=== PATIENT | female | born 1985 | race Caucasian/White ===

== ENCOUNTER 2025-05-18 15:38 | Emergency (ER) | payer OTHER, SELFPAY ==
--- OUTSIDE RECORDS SUMMARY | 2019-02-23 19:00 | XMS_ITS | Continuity of Care Document ---
Author Organization [facility] Address [address] [place] [address] Phone Care Team Providers Care Radio Repair Teacher Name Role Phone Woody ZAIDI, Krishan Unavailable Unavailable Procedures Procedure Date [id number] MED Advance Directives Directive Yes / No Effective Date File Name No Information Encounters Encounter Description Practice Location Reason(s) For Visit Diagnoses Date Provider Providers Copied on Encounter CONSULT-OFFICE -COMP MED [facility], [address], [place], [place], [id number], [place] tel:[phone] [facility] No Information Woody Nickerson. [address], [address], [place], [address], [place]. tel:[phone] Referring Provider: Farshad Stout [id number], [place], [address]. tel:[phone] Family History Family Member Type Diagnosis Age At Onset No Information Payers Payer name Insurance type Covered constitution party ID Authoriza timarlon(s) [facility] [id number] Social History Type Description Quantity Date Captured Comments Sex Female Smoking Status No Information Chief Complaint And Reason For Visit No Information Reason For Referral Reason For Referral No Information History Of Present Illness Encounter Date Complaint History Of Prese nt Illness No Information Functional Status Date Functional Assessmen t No Information Instructions Date Instruction Additional Infor mation No Information Assessments Type Assessment Date No Information Patient Care Teams Name Effective Dates (start - stop) Status Members No Information
--- OUTSIDE RECORDS SUMMARY | 2019-02-23 19:00 | XMS_ITS | Continuity of Care Document ---
Author Organization [facility] Address [address] [place] [address] Phone Care Team Providers Care Medical Staff Services Manager Name Role Phone Woody ZAIDI, Krishan Unavailable Unavailable Procedures Procedure Date [id number] MED Advance Directives Directive Yes / No Effective Date File Name No Information Encounters Encounter Description Practice Location Reason(s) For Visit Diagnoses Date Provider Providers Copied on Encounter CONSULT-OFFICE -COMP MED [facility], [address], [place], [place], [id number], [place] tel:[phone] [facility] No Information Woody Nickerson. [address], [address], [place], [address], [place]. tel:[phone] Referring Provider: Farshad Stout [id number], [place], [address]. tel:[phone] Family History Family Member Type Diagnosis Age At Onset No Information Payers Payer name Insurance type Covered libertarian ID Authoriza timarlon(s) [facility] [id number] Social History Type Description Quantity Date Captured [...]
[2025-05-18 15:49] VITALS: BP 119/78; PULSE 83; RESP 16; TEMP 36.9; O2SAT 98
--- OUTSIDE RECORDS SUMMARY | 2025-05-18 16:47 | XMS_ITS | Clinical Summary ---
Author Organization [facility] [employer] Address [address] [place] [address] Care Team Providers Care Earth Sciences Professor Name Role Phone Katia Grubbs PA-C Primary Care Provider [phone] Iraida Carrillo APRN-ELECTRIC FAN ASSEMBLER Unavailable [phone] Source Comments [facility] [employer],non-owned Affiliates and Associated Physician Practices is amultiple site organization consisting of ambulatory clinics and hospital sitesin [place], [place], [place] and [place]. This disclosure is being madepursuant to the Care Everywhere program and may not contain all information available regarding this patient. Last updated 18.[facility] [employer] Allergies Active Allergy Reactions Criticality Noted Date Comments Hydrocodone Psychiatric Medium 11/01/2019 Ibuprofen Rash,Swelling High 01/23/2013 Per RN Tigist Rodriguez @ 1235 03/31/22 pt tolerated test dose ketorolac well. No issues reported. Tramadol Nausea and/or Vomiting Medium 03/27/2014 Medications * This document contains information received from the source organization and may not represent a complete record from that organization. * Be aware that medications may not be up to date on this document. Alwaysverify current medications with the patient. acetaminophen (Tylenol) 500 MG tablet Take 2 (two) tablets by mouth every 4 hours as needed for Fever or Pain Maximum allowable Acetaminophen amount = 4 Grams (4000 mg) / 24 hours. Active Spacer/Aero-H olding Chambers RIK Use 1 device once daily 1 device 3 08/13/20 24 Active glecaprevir-p ibrentasvir (Mavyret) 100-40 MG tablet Take 3 (three) tablets by mouth daily with food 84 tablet 1 09/19/19 25 Active Additional Information Patient not taking.Reported on 05/06/2025 traZODone (Desyrel) 100 MG tablet Take 1 (one) tablet by mouth at bedtime 30 tablet 3 01/22/20 25 Active lurasidone (Latuda) 60 MG tablet Take 1 (one) tablet by mouth daily with food 30 tablet 3 01/22/20 25 Active zonisamide (Zonegran) 100 MG capsule Take 1 (one) capsule by mouth once daily for 30 days 30 capsule 02/26/20 25 Active Additional Information Patient not taking.Reported on 05/06/2025 zonisamide (Zonegran) 100 MG capsule Take 2 (two) capsules by mouth at bedtime for 30 days 60 capsule 02/25/20 25 Active Additional Information Patient not taking.Reported on 05/06/2025 prazosin (Minipress) 1 MG capsule Take 1 (one) capsule by mouth at bedtime 02/27/20 25 Active hydrOXYzine HCl (Atarax) 25 MG tablet Take 1 (one) tablet by mouth 4 times daily as needed anxiety 02/27/20 25 Active folic acid (Folvite) 1 MG tablet Take 1 (one) tablet by mouth once daily 30 tablet 2 04/10/20 25 Active vitamin D, ergocalcifero l, (Drisdol) 1.25 MG (57457 UT) capsule Take 1 (one) capsule by mouth every 7 days (once a week) 4 capsule 2 04/10/20 25 Active methocarbamol (Robaxin) 500 MG tablet Take 1 (one) tablet by mouth every 6 hours as needed for Muscle Spasms 30 tablet 04/15/20 25 Active albuterol HFA (Proventil; Ventolin; Proair) 108 (90 Base) MCG/ACT inhaler inhale TWO puffs BY MOUTH EVERY 6 HOURS NEEDED 8.5 g 1 04/17/20 25 Active budesonide-fo rmoterol (Symbicort) 160-4.5 MCG/ACT inhaler INHALE 2 PUFFS BY MOUTH TWICE DAILY 10.2 g 3 04/22/20 25 Active nicotine (Nicoderm CQ) 21 MG/24HR patchIndicati ons:Nicotine abuse Apply 1 (one) patch to skin once daily 30 patch 04/22/20 25 Active gabapentin (Neurontin) 400 MG capsule Take 1 (one) capsule by mouth at bedtime 30 capsule 1 05/06/20 25 Active albuterol (Proventil;Ve ntolin) (2.5 MG/3ML) 0.083% nebulizer solution USE ONE vial in NEBULIZER EVERY 4 HOURS NEEDED FOR SHORTNESS OF BREATH 75 mL 3 05/07/20 25 Active budesonide-fo rmoterol (Symbicort) 160-4.5 MCG/ACT inhaler Inhale 2 (two) puffs by mouth 2 times daily 3 g 4 01/22/20 25 2024 Discontinued albuterol (Proventil;Ve ntolin) (2.5 MG/3ML) 0.083% nebulizer solution USE ONE vial in NEBULIZER EVERY 4 HOURS NEEDED FOR SHORTNESS OF BREATH 75 mL 3 04/02/20 25 2024 Discontinued gabapentin (Neurontin) 300 MG capsule Take 1 (one) capsule by mouth at bedtime 30 capsule 1 04/15/20 25 2024 Discontinued(D ose Adjustment) gabapentin (Neurontin) 100 MG capsule Take 1 (one) capsule by mouth every morning 60 capsule 1 04/15/20 25 2024 Discontinued(L ist Clean-Up) Active Problems Problem Noted Date Diagnosed Date Weakness 03/17/2025 TIA (transient ischemic attack) 02/18/2025 Spell of change in speech 02/18/2025 Acute cystitis with hematuria 02/18/2025 Family history of colon cancer 09/19/2024 Anemia, normocytic normochromic 09/19/2024 Chest wall pain 08/22/2024 Respiratory distress 08/22/2024 SOB (shortness of breath) 08/22/2024 Prolonged Q-T interval on ECG 08/22/2024 Hypoxia 08/22/2024 Anxiety states 08/22/2024 Pneumonia of left lung due t o infectious organism, unspecified part of lung 08/22/2024 Bipolar 2 disorder 08/13/2024 Laceration of left forearm 05/15/2024 Abdominal pain, right lower quadrant 05/02/2024 Acute right-sided low back pain with right-sided sciatica 05/02/2024 Flank pain 05/02/2024 Sciatica of right side 05/02/2024 History of hepatitis C 07/26/2023 Vaping nicotine dependence, tobacco product 05/07 Liver cyst 03/16/2023 Hemangioma of liver 03/16/2023 Nonspecific elevation of lev els of transaminase or lactic acid dehydrogenase (LDH) 03/16/2023 Reactive airway disease 10/17/2022 Fatty liver 09/05/2022 Chronic hepatitis C without hepatic coma 023 E-cigarette or vaping produc t use associated lung injury (EVALI) 04/03/2022 Hypokalemia 03/23/2022 Tachycardia 03/23/2022 Pulmonary alveolar hemorrhage 11/08/2021 Family dysfunction 09/30/2020 Cannabis abuse 09/30/2020 Mixed obsessional thoughts and acts 09/30/2020 Common bile duct stricture 09/03/2019 Gastrointestinal hemorrhage 02/23/2019 PVC (premature ventricular contraction) 05/02/20 18 Obsessive-compulsive disorder 04/10/2017 Tobacco use disorder 12/12/2014 Severe episode of recurrent major depressive disorder, without psychotic features Enmeshed family style Resolved Problems Problem Noted Date Diagnosed Date Resolved Date SOB (shortness of breath) 06/02/2023 Abdominal pain, RUQ (right upper quadrant) 03/16/2023 06/29/2023 Epigastric pain 03/16/2023 06/29/2023 Interstitial lung disease 10/17/2022 Abdominal pain, generalized 09/05/2022 06/29/2023 Acute hepatitis C virus infe ction without hepatic coma 06/01/2022 07/26/2023 Cough 03/23/2022 05/01/2022 Leukocytosis 03/23/2022 07/26/2023 Hypoxia 03/23/2022 07/26/2023 COPD with acute exacerbation 03/23/2022 06/29/2023 Shortness of breath 03/21/2022 06/29/20 Acute respiratory failure with hypoxia 11/08/2021 06/29/2023 Pneumonia of both lower lobe s due to infectious organism 11/05/2021 06/29/2023 Pre-op testing 02/25/2021 06/29/2023 Bipolar affective disorder, currently depressed, moderate 07/13/2020 07/13/2020 Abdominal pain, right lower quadrant 10/17/2019 06/29/2023 Gastroenteritis 10/17/2019 10/31/2019 Abdominal pain 09/02/2019 06/29/2023 Liver lesion 06/27/2019 07/26/2023 Choledocholithiasis 06/27/2019 09/03/20 19 Palpitation 05/02/2018 07/26/2023 Schizophrenia 04/10/2017 01/21/2025 PTSD (post-traumatic stress disorder) 09/25/2015 07/13/2020 COPD (chronic obstructive pulmonary disease) 5 11/09/2023 Atypical chest pain 05/13/2014 12/13/19 15 Anxiety 05/13/2014 07/13/2020 Panic attack 05/13/2014 07/13/2020 Encounters * This document contains information received from the source organization and may not represent a complete record from that organization. Date Type Department Care Team Description 05/07/[address] [phone] Katia Grubbs PA-C Refill Request 05/06/2025 10:30 AM CDT Video Visit [address] [phone] Katia Grubbs PA-C Frequent falls ; Weakness; Radicular pain 04/22/2025 Orders Only [address] [phone] Katia Grubbs PA-C Nicotine abuse 04/22/[address] [phone] Katia Grubbs PA-C Refill Request 04/17/[address] [phone] Katia Grubbs PA-C Refill Request 04/15/2025 10:45 AM CDT Office Visit [facility] [address] [phone] Katia Grubbs PA-C Weakness (Primary Dx); Radicular pain; Frequent falls; Spondylosis of lumbosacral region without myelopathy or radiculopathy 04/10/2025 3:15 PM CDT - 04/10/2025 11:59 PM CDT Hospital Encounter [facility] - MRI [address] [place] [address] Katia Grubbs PA-C Discharge Disposition: Home or Self Care 04/10/[address] [phone] Katia Grubbs PA-C Medication Issue 04/08/[address] [phone] Katia Grubbs PA-C MEDICATION REFILL 04/03/[address] [phone] Katia Grubbs PA-C Refill Request 04/02/[address] [phone] Katia Grubbs PA-C Refill Request 04/01/2025 11:30 AM CDT Office Visit [address] [phone] Katia Grubbs PA-C Weakness (Primary Dx); Radicular pain; Neurologic abnormality 03/27/2025 1:45 PM CDT Office Visit Outpatient Physical Therapy at [address] [phone] Katia Grubbs PA-C Weakness (Primary Dx) 03/27/[address] [phone] Katia Grubbs PA-C General 03/20/[address] [phone] Katia Grubbs PA-C Pain Leg 03/17/2025 2:30 PM CDT Office Visit Outpatient Physical Therapy at [address] [phone] Katia Grubbs PA-C Weakness (Primary Dx) 03/17/[address] [phone] Katia Grubbs PA-C General 03/11/[address] [phone] Katia Grubbs PA-C General 03/03/2025 11:30 AM CDT Home Care Visit [facility] [address] [place] [phone] Celena Galo RN SN OASIS DISCHARGE 03/03/2025 Home Care Visit [facility] [address] [place] [phone] Antoinette Davidson, EDVIN CASE COMMUNICATION 03/03/2025 Travel 03/03/2025 Home Care Visit [facility] [address] [place] [phone] Britta Daugherty RN TELEPHONE ENCOUNTER 03/03/2025 Results Follow-Up [address] [phone] Katia Grubbs PA-C 02/28/2025 1:55 PM CDT - 02/28/2025 11:59 PM CDT Hospital Encounter [facility] - Laboratory [address] [place] [phone] Katia Grubbs PA-C Discharge Disposition: Home or Self Care 02/28/2025 1:15 PM CDT Office Visit [address] [phone] Katia Grubbs PA-C Pyelonephritis (Primary Dx); Hospital discharge follow-up; Acute cystitis with hematuria; Weakness; Bulging lumbar disc; Bipolar 2 disorder (HCC); Chronic hepatitis C without hepatic coma (HCC) 02/28/2025 Results Follow-Up [address] [phone] Katia Grubbs PA-C 02/28/[address] [phone] Katia Grubbs PA-C Med Question 02/28/2025 Home Care Visit [facility] [address] [place] [phone] Britta Daugherty, RN CASE COMMUNICATION 02/27/2025 Patient Outreach [facility] Care Coordination [address] [place] [phone] Camilo Dennis, REAMING PRESS OPERATOR BANNER Follow-up 02/26/2025 10:00 AM CDT Home Care Visit [facility] [address] [place] [phone] Ashlyn Hoffmann REAMING PRESS OPERATOR REAMING PRESS OPERATOR HOME VISIT 02/26/[address] [phone] Katia Grubbs PA-C Refill Request 02/26/2025 Transitional Care [facility] Coordination [address] [place] [phone] Tigist Santamaria, respiratory care faculty 02/25/2025 1:00 PM CDT Home Care Visit [facility] [address] [place] [phone] Marge Sutton RN SN OASIS START OF CARE 02/25/2025 Plan of Care Documentation [facility] at [facility] Home [facility] [address] [place] [phone] 02/25/2025 Travel 02/25/2025 Transitional Care [facility] - Care Coordination [address] [facility] [place] [phone] Tigist Santamaria, respiratory care faculty 02/24/2025 Telephone [facility] - Family Medicine [address] [place] [phone] Katia Grubbs PA-C General 02/18/2025 6:07 PM CDT - 02/24/2025 2:08 PM CDT Hospital Encounter [facility] 2 TELEMETRY [address] [place], [place] [address] Sweta Garcia MD Flick, John A, DO Seipp, James, DO Hospitalist Discharge Disposition: Home Health Care [facility] 02/18/2025 Travel from Last 3 Months Immunizations Immunization Administration Dates Next Due TDAP (7yrs+) 05/15/2024 Family History Medical History Relation Name Comments Cancer Father Cancer Mother Relation Name Status Comments Father Mother Social History Tobacco Use Types Packs/Day Years Used Date Smoking Tobacco: Former Cigarettes 0.3 15.4 0 03/23/2007 - 03/23/2022 Smokeless Tobacco: Never Tobacco Cessation:Counseling Given: Not Answered Alcohol Use Standard Drinks/Week Comments No 0 (1 standard drink = 0.6 oz pur e alcohol) OASIS D0700: Social Isolation Answer Da te Recorded Frequency of experiencing loneliness or isolatio n Never 03/03/2025 OASIS A1250: Transportation Answer Date Recorded Lack of Transportation (Medical) No 03/03/2025 Lack of Transportation (Non-Medical) No 03/03/2025 Patient Unable or Declines to Respond No 03/03/2025 OASIS B1300: Health Literacy Answer Jagjit e Recorded Frequency of needing help to read materials from doctor or pharmacy Never 03/03/2025 AUDIT-C Answer Date Recorded Q1: How often do you have a drink containing alcohol? Never 02/19/2025 Q2: How many drinks containi ng alcohol do you have on a typical day when you are drinking? Patient does not drink Q3: How often do you have si x or more drinks on one occasion? Never 02/19/2025 Overall Financial Resource Strain (CARDIA) Answe r Date Recorded How hard is it for you to pa y for the very basics like food, housing, medical care, and heating? Not very hard 02/19/2025 PHQ-2 Answer Date Recorded Patient Health Questionnaire-2 Score 4 05/06/2025 [facility] - Occupational Stress Questionnaire Answer Date Recorded Do you feel stress - tense, restless, nervous, or anxious, or unable to sleep at night because your mind is troubled all the time - these days? To some extent 02/19/2025 Hunger Vital Sign Answer Date Recorded Within the past 12 months, y ou worried that your food would run out before you got the money to buy more. Never true 02/20/20 25 Within the past 12 months, t he food you bought just didn't last and you didn't have money to get more. Never true 02/19/2025 PRAPARE - Transportation Answer Date Re corded In the past 12 months, has l ack of transportation kept you from medical appointments or from getting medications? Yes 02/02 In the past 12 months, has l ack of transportation kept you from meetings, work, or from getting things needed for daily living? Yes 02/19/2025 Housing Stability Vital Sign Answer Jagjit e Recorded In the last 12 months, was t here a time when you were not able to pay the mortgage or rent on time? No 02/19/2025 In the past 12 months, how m any times have you moved where you were living? 2 02/19/2025 At any time in the past 12 m [facility], were you homeless or living in a retirement (including now)? 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 Weight 64.4 kg (142 lb) 04/15/2025 10:1 6 AM CDT Height 154.9 cm (5' 1) 04/15/2025 10:1 6 AM CDT Body Mass Index 26.83 04/15/2025 10:16 AM CDT Plan of Treatment Upcoming Encounters Date Type Department Care Team (Late st Contact Info) Description 05/26/2025 1:00 PM CDT Office Visit [facility] Health Orthopedics [address] [place] [address] Katia Grubbs PA-C [address] [place] [phone] Mary Kate Alcaraz, INTERMEDIATE ACCOUNTANT-ELECTRIC FAN ASSEMBLER [address], [place] [phone] Health Maintenance Due Date Last Done Comments MAMMOGRAM 1983 HEPATITIS B VACCINE (1 of 3 - 19+ 3-dose series) 2002 PNEUMOCOCCAL VACCINE (1 of 2 - PCV) 2002 HPV VACCINE (1 - 3-dose SCDM series) 2010 PAP with HPV 2013 COVID-19 VACCINE ( - season) 2025 INFLUENZA VACCINE (#1) 2025 SCREENING FOR DIABETES 02/29/2028 , 02/24/2025, 02/23/2025, Additional history exists LIPID TESTING 02/20/2030 02/20/2025, 11/0 04/2023, 09/13/2021, Additional history exists ZOSTER VACCINE (1 of 2) 2033 DTAP/TDAP/TD VACCINES (2 - Td or Tdap) 05/15/2034 05/15/2024 HIV SCREENING Completed 03/25/2022, 0304/2022, 05/27/2019 HEPATITIS C SCREENING Completed 02/28/2025 , 02/28/2025, 01/21/2025, Additional history exists HIB VACCINE Aged Out No longer eligi ble based on patient's age to complete this topic MENINGOCOCCAL (Group B) VACCINE SHARED DECISION-MAKING Aged Out No longer eligible based on patient's age to complete this topic MENINGOCOCCAL GROUPS A/C/Y/W VACCINE Aged Out No longer eligible based on patient's age to complete this topic Goals Goal Patient Goal Type Associated Problems Recent Progress Patient-Stated? Author Medication Management General On track( 019 11:56 AM CDT) Monico Douglas, RN Note: Expected end date: Interventions: Take all medications as prescribed Let your doctor know right away about any changes in your medications Make sure to request a refill of your medication at least one week prior to your last dose Medical Devices Explanted Type Area Soft Metals Hand Engraver Device Identifier Shelf Expiration Date Model / Serial / Lot Stent Biliary 10fr 7cm Ddnl Bnd Temp Rap Implanted:Qty: 1 on 09/02/2019 by Oswaldo Santamaria MD at [facility] Explanted:Qty: 1 on 11/04/2019 by Oswaldo Santamaria MD at [facility] N/A: Bile Duct [employer] 06/02/2021 [id number] / / [id number] Stent Biliary 10mm 8.5fr 60mm 194cm .035 Implanted:Qty: 1 on 11/04/2019 by Oswaldo Santaamria MD at [facility] Explanted:Qty: 1 on 02/12/2020 by Oswaldo Santamaria MD at [facility] [employer] 06/13/2028 [id number] / / [id number] Stent Biliary 10mm 8.5fr 60mm 194cm .035 Implanted:Qty: 1 on 02/12/2020 by Oswaldo Santamaria MD at [facility] Explanted:Qty: 1 on 08/17/2020 by Oswaldo Santamaria MD at [facility] [employer] 09/26/2021 [id number] / / [id number] Stent Biliary 10mm 8.5fr 60mm 194cm .035 Implanted:Qty: 1 on 08/17/2020 by Oswaldo Santamaria MD at [facility] Explanted:Qty: 1 on 02/25/2021 by Malik Viveros MD at [facility] [employer] [id number] / / Procedures Procedure Name Priority Date/Time Associated Diagnosis Comments MRI LUMBAR SPINE WO CONTRAST Routine 04/10/2025 3:59 PM CDT Weakness Bulging lumbar disc TSH REFLEX FREE T4 Routine 02/28/2025 1: 55 PM CDT Weakness VITAMIN B12 FOLATE PANEL Routine 02/28/2025 1:55 PM CDT Weakness IRON + TRANSFERRIN PANEL Routine 02/28/2025 1:55 PM CDT Weakness VITAMIN D 25-HYDROXY Routine 02/28/2025 1:55 PM CDT Weakness HEPATITIS C RNA QUANT REFLX GENOTYPE Routine 02/28/2025 1:55 PM CDT Chronic hepatitis C without hepatic coma (HCC) COMPREHENSIVE METABOLIC PANEL Routine 02/28/2025 1:55 PM CDT Pyelonephritis CBC W AUTO DIFFERENTIAL Routine 02/28/2025 1:55 PM CDT Pyelonephritis URINALYSIS REFLEX MICROSCOPIC REFLEX CULTURE Routine 02/28/2025 1:55 PM CDT Pyelonephritis CULTURE URINE Routine 02/28/2025 1:55 PM CDT Pyelonephritis CARDIAC RHYTHM STRIP ORDER 02/25/2025 2:36 PM CDT MAGNESIUM BLOOD Routine 02/24/2025 4:28 AM CDT COMPREHENSIVE METABOLIC PANEL AM Draw 02/24/2025 4:28 AM CDT CBC W AUTO DIFFERENTIAL AM Draw 02/24/2025 4:28 AM CDT DIFFERENTIAL MANUAL AM Draw 02/23/2025 4 :10 AM CDT MAGNESIUM BLOOD Routine 02/23/2025 4:10 AM CDT COMPREHENSIVE METABOLIC PANEL AM Draw 02/23/2025 4:10 AM CDT CBC W AUTO DIFFERENTIAL AM Draw 02/23/2025 4:10 AM CDT DIFFERENTIAL MANUAL AM Draw 02/22/2025 4 :20 AM CDT MAGNESIUM BLOOD Routine 02/22/2025 4:20 AM CDT COMPREHENSIVE METABOLIC PANEL AM Draw 02/22/2025 4:20 AM CDT CBC W AUTO DIFFERENTIAL AM Draw 02/22/2025 4:20 AM CDT VAS CAROTID DUPLEX BILATERAL Routine 02/21/2025 2:16 PM CDT Spell of change in speech CT ABDOMEN PELVIS WO CONTRAST STAT 02/21/2025 9:57 AM CDT Pyelonephritis MAGNESIUM BLOOD Routine 02/21/2025 4:50 AM CDT COMPREHENSIVE METABOLIC PANEL AM Draw 02/21/2025 4:50 AM CDT CBC W AUTO DIFFERENTIAL AM Draw 02/21/2025 4:50 AM CDT ECHO COMPLETE W BUBBLE STUDY Routine 02/20/2025 3:35 PM CDT Spell of change in speech EEG Routine 02/20/2025 12:00 PM CDT LIPID PROFILE AM Draw 02/20/2025 4:46 AM CDT HEMOGLOBIN A1C Routine 02/20/2025 4:46 AM CDT [id number] BLOOD AM Draw 02/20/2025 4:46 AM CDT MAGNESIUM BLOOD Routine 02/20/2025 4:46 AM CDT COMPREHENSIVE METABOLIC PANEL AM Draw 02/20/2025 4:46 AM CDT CBC W AUTO DIFFERENTIAL AM Draw 02/20/2025 4:46 AM CDT MRI BRAIN WO CONTRAST STAT 02/19/2025 6:21 PM CDT Spell of change in speech CARDIAC EKG ORDER 02/19/2025 2:5 5 PM CDT LACTIC ACID BLOOD REFLEX TO REPEAT STAT 02/18/2025 8:28 PM CDT DRUG ABUSE URINE SCREEN 10 STAT 02/18/2025 8:00 PM CDT PTT Critical 02/18/2025 7:54 PM CDT PT-INR Critical 02/18/2025 7:54 PM CDT HCG URINE QUALITATIVE STAT 02/18/2025 7:53 PM CDT URINALYSIS REFLEX MICROSCOPIC REFLEX CULTURE STAT 02/18/2025 7:53 PM CDT CULTURE URINE STAT 02/18/2025 7:[address] BRAIN STROKE STAT 02/18/2025 7:47 PM CDT Spell of change in speech CT LUMBAR SPINE WO CONTRAST STAT 02/18/2025 7:47 [address] CDT Spine pain CT THORACIC SPINE WO CONTRAST STAT 02/18/2025 7:47 PM CDT Spine pain CT CERVICAL SPINE WO CONTRAST STAT 02/18/2025 7:47 PM CDT Spine pain XR CHEST 1VW PORTABLE STAT 02/18/2025 7:45 PM CDT Tachycardia CK BLOOD STAT 02/18/2025 7:45 PM CDT SARS-COV-2 (COVID-19) RAPID STAT 02/18/2025 7:45 PM CDT EKG 12-LEAD STAT 02/18/2025 7:35 PM CDT Tachycardia ED CRITICAL CARE Routine 02/18/2025 7:23 PM CDT Spell of change in speech TIA (transient ischemic attack) CULTURE BLOOD Timed 02/18/2025 7:21 PM CDT CULTURE BLOOD Timed 02/18/2025 7:20 PM CDT PROCALCITONIN LEVEL Add on 02/18/2025 6 :46 PM CDT COMPREHENSIVE METABOLIC PANEL STAT 02/18/2025 6:46 PM CDT CBC W AUTO DIFFERENTIAL STAT 02/18/2025 6:27 PM CDT HIV-1 HIV-2 ANTIBODY + HIV P24 AG PANEL AM Draw 03/25/2022 4:32 AM CDT from Last 3 Months or Most Recently Relevant to Health Maintenance Results * MRI Lumbar Spine Wo Contrast (04/10/2025 3:59 PM CDT) Anatomical Region Laterality Modality Spine Magnetic Resonan ce 04/10/2025 4:11 PM CDT Impressions 04/10/2025 4:14 PM CDT IMPRESSION: Mild degenerative change T12-L1, L5-S1 disc space. Mild facet hypertrophy inferiorly. No focal lumbar disc protrusion, nerve root or foraminal encroachment. No spinal stenosis or thecal sac compression. No acute abnormality identified. > Interpreting Provider: Scott Redding MD on 04/10/2025 4:14 PM Narrative 04/10/2025 4:14 PM CDT PROCEDURE: MRI LUMBAR SPINE WO CONTRAST DATE/TIME OF EXAM: 04/10/2025 3:59 PM CLINICAL INFORMATION: None relevant/not provided if blank. Indication: R53.1: Weakness M51.369: Bulging lumbar disc Additional History: Back pain, lumbar myelopathy. COMPARISON: Lumbar spine CT February 2025. TECHNIQUE: Lumbar spine MRI was performed without contrast. FINDINGS: Sagittal images demonstrate degenerative change with mild reduction in height and reduced hydration at L5-S1. There also is degenerative change T12-L1. No lumbar disc protrusion, spinal stenosis or thecal sac compression identified in sagittal projection. Examination of the bony structures reveals no acute fracture or acute bone marrow edema. There are areas of fatty infiltration of the bone marrow anteriorly at T12-L1, posteriorly at L3 presumed physiologic. No suspicious bone marrow replacement process. There is no mass lesion or fluid collection. No abnormal signal intensity identified within the conus or visualized lower thoracic spinal cord. Axial images are obtained from T12-L1 through the level of L5-S1. Disks are normal in axial projection. Foramina are patent and symmetric. No thecal sac compression. Mild facet hypertrophy L4-5 and L5-S1. Procedure Note Scott Redding MD - 04/10/2025 PROCEDURE: MRI LUMBAR SPINE WO CONTRAST DATE/TIME OF EXAM: 04/10/2025 3:59 PM CLINICAL INFORMATION: None relevant/not provided if blank. Indication: R53.1: Weakness M51.369: Bulging lumbar disc Additional History: Back pain, lumbar myelopathy. COMPARISON: Lumbar spine CT February 2025. TECHNIQUE: Lumbar spine MRI was performed without contrast. FINDINGS: Sagittal images demonstrate degenerative change with mild reduction in height and reduced hydration at L5-S1. There also is degenerative change T12-L1. No lumbar disc protrusion, spinal stenosis or thecal sac compression identified in sagittal projection. Examination of the bony structures reveals no acute fracture or acutebone marrow edema. There are areas of fatty infiltration of the bone marrow anteriorly at T12-L1, posteriorly at L3 presumed physiologic. Nosuspicious bone marrow replacement process. There is no mass lesion or fluid collection. No abnormal signalintensity identified within the conus or visualized lower thoracic spinal cord. Axial images are obtained from T12-L1 through the level of L5-S1. Disksare normal in axial projection. Foramina are patent and symmetric. No thecal sac compression. Mild facet hypertrophy L4-5 and L5-S1. IMPRESSION: Mild degenerative change T12-L1, L5-S1 disc space. Mild facet hypertrophy inferiorly. No focal lumbar disc protrusion, nerve root or foraminal encroachment. No spinal stenosis or thecal sac compression. No acute abnormality identified. > Interpreting Provider: Scott Redding MD on 04/10/2025 4:14 PM Katia PEREZ-Shannon MR ORDERABLES Final Result * HEPATITIS C RNA QUANT REFLX GENOTYPE (02/28/2025 1:55 PM CDT) HCV Quant by NAAT (IU/mL) Not Detected IU/mL 03/03/2025 4:19 PM CDT [facility] ([facility]) HCV Quant by NAAT (log IU/mL) Not Detected log IU/mL 03/03/2025 4:19 PM CDT [facility] ([facility]) Comment: Hepatitis C Virus (HCV) by Quantitative NAAT result was less than 4,000 IU/mL (3.6 log IU/mL); therefore no further testing added. HCV Quant by NAAT Interp Not Detected Not Detected 03/03/2025 4:19 PM CDT [facility] ([facility]) Comment: INTERPRETIVE INFORMATION: HCV by Quantitative NAAT The quantitative range of this test is 15-100,000,000 IU/mL (1.18-8.0 log IU/mL). A result of Not Detected does not rule out the presence of inhibitors in the patient specimen or hepatitis C virus RNA concentrations below the level of detection of the test. Care should be taken when interpreting any single viral load determination. This test is intended for use as an aid in the diagnosis of HCV infection in the following populations: individuals with antibody evidence of HCV with evidence of liver disease, individuals suspected to be actively infected with HCV antibody evidence, and individuals at risk for HCV infection with antibodies to HCV. Detection of HCV RNA indicates that the virus is replicating and therefore is evidence of active infection. This test is also intended for use as an aid in the management of patients with an HCV infection undergoing antiviral therapy. The assay can be used to measure HCV RNA levels at baseline, during treatment, at the end of treatment, and at the end of follow-up of treatment to determine sustained or nonsustained viral response. The results must be interpreted within the context of all relevant clinical and laboratory findings. This test should not be used for blood donor screening, associated reentry protocols, or for screening human cells, tissues, and cellular tissue-based products (HCT/P). Performed By: [facility] [address] [place] [address] Mill Hand: Keyshawn Robles MD, PhD CLIA Number: [id number] Blood BLOOD SPECIMEN / Unknown Venipuncture / Unknown 02/28/2025 1:55 PM CDT 02/28/2025 1:55 PM CDT us Katia Grubbs PA-C LAB - CHEMISTRY ORDERABLES Fin al Result [facility] ([facility]) [address] [place] [address] * (ABNORMAL) URINALYSIS REFLEX MICROSCOPIC REFLEX CULTURE (02/28/2025 1:55 PM CDT) Only the most recent of2 resultswithin the time period is included. Color UA Yellow Yellow, Straw 02/28/2025 5:02 PM CDT [facility] Clarity UA Turbid(A) Clear 02/28/2025 5:02 PM CDT [facility] Glucose UA Negative Negative 02/28/2025 5:02 PM CDT [facility] Bilirubin UA Negative Negative 02/28/2025 5:02 PM CDT [facility] Ketone UA Negative Negative 02/28/2025 5:02 PM CDT [facility] Specific [place] UA 1.016 1.005 - 1.030 02/28/2025 5:02 PM CDT [facility] Blood UA 2+(A) Negative 02/28/2025 5:02 PM CDT [facility] pH UA 5.5 5.0 - 8.0 02/28/2025 5:02 PM CDT [facility] Protein UA Trace(A) Negative 02/28/2025 5:02 PM CDT [facility] Urobilinogen UA Normal Normal mg/dL 025 5:02 PM CDT [facility] Nitrite UA Negative Negative 02/28/2025 5:02 PM CDT [facility] Leukocyte Esterase UA 1+(A) Negative 02/28/2025 5:02 PM CDT [facility] RBC UA 3-5 0 - 5 # /hpf 02/28/2025 5:02 PM CDT [facility] WBC UA 0-5 0 - 5 # /hpf 02/28/2025 5:02 PM T [facility] Bacteria UA None Seen None Seen 02/28/2025 5:02 PM T [facility] Squamous Epithelial Cells 6-10(A) 0 - 5 /hpf 02/28/2025 5:02 PM T [facility] Mucus UA 4+ /LPF 02/28/2025 5:02 PM T [facility] Urine URINE SPECIMEN OBTAINED BY CLEAN CATCH PROCEDURE / Unknown Collection / Unknown 02/28/2025 1:55 PM CDT 02/28/2025 1:55 PM CDT Katia Grubbs PA-C LAB - URINALYSIS ORDERABLES Fi nal Result Performing Organization Address [facility] de Phone Number [facility] [address] [place] [address] * TSH REFLEX FREE T4 (02/28/2025 1:55 PM CDT) TSH 2.6695 0.35 - 4.94 uIU/mL 02/28/2025 5:32 PM CDT [facility] Comment:TSH Normal, Reflex F ree T4 Not Performed. Blood BLOOD SPECIMEN / Unknown Venipuncture / Unknown 02/28/2025 1:55 PM CDT 02/28/2025 1:55 PM CDT Katia Grubbs PA-C LAB - CHEMISTRY ORDERABLES Fin al Result Performing Organization Address City/[facility]/ZIP Co de Phone Number [facility] [address] * (ABNORMAL) VITAMIN D 25-HYDROXY (02/28/2025 1:55 PM CDT) Vitamin D, 25 Hydroxy 13.9(L) 30 - 80 ng/mL 02/28/2025 5:25 PM CDT [facility] Blood BLOOD SPECIMEN / Unknown Venipuncture / Unknown 02/28/2025 1:55 PM CDT 02/28/2025 1:55 PM CDT Narrative [facility] - 02/28/2025 5:25 PM CDT Reference Values: The recommendation for 25-Hydroxy Vitamin D clinical decision points are as follows: Deficient < 20.0 ng/mL Insufficient 20.0-29.9 ng/mL Sufficient 30.0-100.0 ng/mL Potential Toxicity >100 ng/mL Reference: The Endocrine Society Clinical Practice Guidelines. 2011 If the 25-Hydroxy Vitamin D results are inconsistent with clinical evidence, it is recommended that follow-up testing using a method such as LC-MS/MS be performed to confirm the result. Katia Grubbs PA-C LAB - CHEMISTRY ORDERABLES Fin al Result Performing Organization Address City/[facility]/ZIP Co de Phone Number [facility] [address] * CULTURE URINE (02/28/2025 1:55 PM CDT) Only the most recent of2 resultswithin the time period is included. Culture Urine <10,000 CFU/mL urogenital bertha AMARI 03/02/2025 6:16 AM CDT [facility] Urine URINE SPECIMEN OBTAINED BY CLEAN CATCH PROCEDURE / Unknown Collection / Unknown 02/28/2025 1:55 PM CDT 02/28/2025 5:20 PM CDT Katia Grubbs PA-C LAB - MICROBIOLOGY ORDERABLES Final Result [facility] [address] [place] [address], [facility] [phone] * (ABNORMAL) CBC WITH DIFFERENTIAL (02/28/2025 1:55 PM T) Only the most recent of7 resultswithin the time period is included. [facility] Signature WBC 12.4(H) 4.0 - 10.7 x10E9/L 02/28/2025 4:59 PM [facility] RBC Count 4.74 3.90 - 5.20 x10E12/L 02/28/2025 4:59 PM [facility] Hemoglobin 13.7 11.9 - 15.8 g/dL 02/28/2025 4:59 PM [facility] Hematocrit 41.7 34.8 - 46.1 % 02/28/2025 4:59 PM [facility] MCV 88.0 80.0 - 98.0 fL 02/28/2025 4:59 PM [facility] MCH 28.9 26.7 - 33.6 pg 02/28/2025 4:59 PM [facility] MCHC 32.9 31.7 - 36.3 g/dL 02/28/2025 4:59 PM [facility] RDW-CV 15.6(H) 11.3 - 14.8 % 02/28/2025 4:59 PM [facility] Platelet Count 593(H) 150 - 420 x10E9/L 02/28/2025 4:59 PM [facility] MPV 9.7 7.8 - 11.4 fL 02/28/2025 4:59 PM [facility] Neutrophil % 78.3(H) 41.0 - 74.0 % 02/28/2025 4:59 PM [facility] Lymphocyte % 15.2(L) 17.0 - 47.0 % 02/28/2025 4:59 PM [facility] Monocyte % 4.8 3.0 - 11.0 % 02/28/2025 4:59 PM [facility] Eosinophil % 0.7 0.0 - 7.0 % 02/28/2025 4:59 PM [facility] Basophil % 0.4 0.0 - 1.6 % 02/28/2025 4:59 PM [facility] Immature Granulocytes % 0.6 0.0 - 1.0 % 02/28/2025 4:59 PM [facility] Neutrophil Absolute 9.69(H) 1.60 - 7.50 x10E9/L 02/28/2025 4:59 PM CDT [facility] Lymphocyte Absolute 1.88 1.00 - 4.40 x10E9/L 02/28/2025 4:59 PM CDT [facility] Monocyte Absolute 0.59 0.15 - 1.00 x10E9/L 02/28/2025 4:59 PM CDT [facility] Eosinophil Absolute 0.09 0.00 - 0.60 x10E9/L 02/28/2025 4:59 PM CDT [facility] Basophil Absolute 0.05 0.00 - 0.13 x10E9/L 02/28/2025 4:59 PM CDT [facility] Blood BLOOD SPECIMEN / Unknown Venipuncture / Unknown 02/28/2025 1:55 PM CDT 02/28/2025 1:55 PM CDT us Katia Grubbs PA-C LAB - HEMATOLOGY ORDERABLES Fi nal Result Performing Organization Address [facility] Co de Phone Number [facility] [address] * (ABNORMAL) COMPREHENSIVE METABOLIC PANEL (02/28/2025 1:55 PM CDT) Only the most recent of7 resultswithin the time period is included. Glucose 97 70 - 125 mg/dL 02/28/2025 4:55 PM CDT [facility] Sodium 136 136 - 145 mmol/L 02/28/2025 4:55 PM CDT [facility] Potassium 3.4 3.4 - 5.1 mmol/L 02/28/2025 4:55 PM CDT [facility] Chloride 103 98 - 107 mmol/L 02/28/2025 4:55 PM CDT [facility] CO2 25 22 - 29 mmol/L 02/28/2025 4:55 PM CDT [facility] Calcium 9.48 8.4 - 10.2 mg/dL 02/28/2025 4:55 PM CDT [facility] Anion Gap 8 6 - 16 mmol/L 02/28/2025 4:55 PM CDT [facility] BUN 8.9(L) 9.8 - 20.1 mg/dL 02/28/2025 4:55 PM CDT [facility] Creatinine 0.71 0.57 - 1.11 mg/dL 02/28/2025 4:55 PM CDT [facility] Alkaline Phosphatase 119 40 - 150 U/L 02/28/2025 4:55 PM CDT [facility] ALT 19 7 - 30 U/L 02/28/2025 4:55 PM CDT [facility] AST 25 5 - 34 U/L 02/28/2025 4:55 PM CDT [facility] Protein Total 8.5(H) 6.4 - 8.3 gm/dL 02/28/2025 4:55 PM CDT [facility] Albumin 4.1 3.1 - 4.5 gm/dL 02/28/2025 4:55 PM CDT [facility] Globulin Total 4.4(H) 2.6 - 4.0 gm/dL 02/28/2025 4:55 PM CDT [facility] Albumin/Globulin Ratio 0.9 0.9 - 1.6 02/28/2025 4:55 PM CDT [facility] Bilirubin Total 0.3 0.2 - 1.2 mg/dL 02/28/2025 4:55 PM CDT [facility] eGFR >90 >90 mL/min/1.7 3m2 02/28/2025 4:55 PM CDT [facility] Comment:The GFR result was c alculated using the updated CKD-EPI Creatinine Equation (2020). Blood BLOOD SPECIMEN / Unknown Venipuncture / Unknown 02/28/2025 1:55 PM CDT 02/28/2025 1:55 PM CDT us Katia Grubbs PA-C LAB - CHEMISTRY ORDERABLES Fin al Result [facility] [address] * (ABNORMAL) VITAMIN B12 FOLATE PANEL (02/28/2025 1:55 PM CDT) Vitamin B12 594 213 - 816 pg/mL 02/28/2025 5:32 PM CDT [facility] Folate 4.9(L) 7.0 - 31.4 ng/mL 02/28/2025 5:32 PM CDT [facility] Blood BLOOD SPECIMEN / Unknown Venipuncture / Unknown 02/28/2025 1:55 PM CDT 02/28/2025 1:55 PM CDT Katia Grubbs PA-C LAB - CHEMISTRY ORDERABLES Fin al Result Performing Organization Address [facility] de Phone Number [facility] [address] [place] [address] * IRON + TRANSFERRIN PANEL (02/28/2025 1:55 PM CDT) Iron 68 50 - 170 ug/dL 02/28/2025 4:55 PM CDT [facility] Transferrin 352 180 - 382 mg/dL 02/28/2025 4:55 PM CDT [facility] TIBC Calculated 440 261 - 497 ug/dL 02/28/2025 4:55 PM CDT [facility] Iron Saturation % 15 11 - 45 % 02/28/2025 4:55 PM CDT [facility] Blood BLOOD SPECIMEN / Unknown Venipuncture / Unknown 02/28/2025 1:55 PM CDT 02/28/2025 1:55 PM CDT Katia Grubbs PA-C LAB - CHEMISTRY ORDERABLES Fin al Result Performing Organization Address [facility] de Phone Number [facility] [address] [place] [address] * CARDIAC RHYTHM STRIP ORDER (02/25/2025 2:36 PM CDT) Narrative 02/25/2025 2:36 PM CDT Ordered by an unspecified provider. Scanned Document CARDIAC SERVICES ORDERABLES Joseph hayden Result - Final * MAGNESIUM BLOOD (02/24/2025 4:28 AM CDT) Only the most recent of5 resultswithin the time period is included. Magnesium 2.2 1.6 - 2.6 mg/dL 02/24/2025 5:03 AM CDT [facility] Blood BLOOD SPECIMEN / Unknown Lab Venipuncture / Unknown 02/24/2025 4:28 AM CDT 02/24/2025 4:39 AM CDT us Mono Myers DO LAB - CHEMISTRY ORDERABLES Final Result [facility] [address] * (ABNORMAL) DIFFERENTIAL MANUAL (02/23/2025 4:10 AM CDT) Only the most recent of2 resultswithin the time period is included. Neutrophil % 71 41 - 74 % 02/23/2025 5:24 AM CDT [facility] Lymphocyte % 23 17 - 47 % 02/23/2025 5:24 AM CDT [facility] Monocyte % 4 3 - 11 % 02/23/2025 5:24 AM CDT [facility] Eosinophil % 2 0 - 7 % 02/23/2025 5:24 AM CDT [facility] Neutrophil Absolute 9.80(H) 1.60 - 7.50 x10E9/L 02/23/2025 5:24 AM CDT [facility] Lymphocyte Absolute 3.17 1.00 - 4.40 x10E9/L 02/23/2025 5:24 AM CDT [facility] Monocyte Absolute 0.55 0.15 - 1.00 x10E9/L 02/23/2025 5:24 AM CDT [facility] Eosinophil Absolute 0.28 0.00 - 0.60 x10E9/L 02/23/2025 5:24 AM CDT [facility] RBC Morphology REVIEWED 02/23/2025 5:24 AM CDT [facility] Blood BLOOD SPECIMEN / Unknown Lab Venipuncture / Unknown 02/23/2025 4:10 AM CDT 02/23/2025 4:43 AM CDT us Mono Myers DO LAB - HEMATOLOGY ORDERABLES Sadia l Result [facility] [address] * VAS Carotid Duplex Bilateral (02/21/2025 2:16 PM CDT) Anatomical Region Laterality Modality Neck Intravascular Ul trasound 02/21/2025 7:01 PM CDT Narrative Procedure Note Argelia Tenorio MD - 02/21/2025 Text based report below. For full PDF report please click on Cardiac, Vascular Lab Orders Based Right: No significant plaque visualized. No hemodynamic disturbance to theflow. Vertebral artery flow is antegrade. Left: No significant plaque visualized. No hemodynamic disturbance to theflow. Vertebral artery flow is antegrade. Conclusions: Based upon NASCET Doppler criteria there appears to be anormal examination of the extracranial carotid system. Bilateral vertebral artery is antegrade. Procedure: *Reading Radiologist: Argelia Tenorio on 02/21/2025 at 7:01 PM Mono Myers DO VASCULAR LAB ORDERABLES Edited R esult - Final * CT ABDOMEN AND PELVIS WO IV CONTRAST [id number] (02/21/2025 9:57 AM CDT) Anatomical Region Laterality Modality Abdomen, Pelvis Computed Tomogra phy 02/21/2025 10:0 0 AM CDT Impressions 02/21/2025 10:15 AM CDT IMPRESSION: 1. Mild fat stranding around the right kidney without right hydroureteronephrosis. Findings are concerning for right-sided pyelonephritis. If warranted, repeat study with IV contrast including delayed phase imaging recommended. 2. Cholecystectomy. No biliary ductal dilatation. Hepatic cyst in the left lateral segment liver 1.4 cm sized. 3. Normal bowel including appendix. No hernias or lymphadenopathy. > Interpreting Provider: Abhishek Green DO on 02/21/2025 10:15 AM Narrative 02/21/2025 10:15 AM CDT Exam: CT ABDOMEN PELVIS WO CONTRAST Date/Time of Exam: 02/21/2025 9:57 AM INDICATION: N12: Pyelonephritis Comparison: CT A/P 05/02/2024. Technique: CT of the abdomen and pelvis was performed without the administration of intravenous contrast. This CT study used one or more of the following dose reduction techniques: Automated exposure control, Adjustment of the mA and/or kV according to patient size, Use of iterative reconstruction technique. Patient radiation dose is recorded for each exam using dose tracking software. Contrast: None. Findings: Evaluation of solid abdominal viscera, lymph nodes, bowel and vascular structures is degraded without oral or IV contrast. ABDOMEN: The visualized lower thorax demonstrates subsegmental atelectasis in lower lung bases. There are no pleural effusions. Heart is normal sized. The liver is normal-sized with normal attenuation. Cholecystectomy. There is no biliary ductal dilatation. A cyst in the left lateral segment liver 1.4 cm. There is a normal-appearing spleen. No perisplenic fluid collections. There is normal-appearing pancreas, and adrenal glands. There is mild nonspecific perinephric fat stranding in the right side. No pararenal fluid collections. There is no free air, ascites or bowel obstruction present. There is no hiatal hernia. Decompressed stomach. Normal-appearing duodenal loop. There is minimal vascular calcifications in infrarenal aorta without aneurysm. PELVIS: The bladder is mildly distended without focal bladder wall thickening. Small fat-containing right inguinal hernia. There are follicles in the ovaries. Nabothian cyst in the cervix. There is a normal-appearing rectum and sigmoid colon. There is normal descending colon, transverse and right colon. The small bowel loops are nondilated. There is a normal appendix present. BONES: No acute osseous abnormalities or intraosseous lesions. Mild anterior disc bulging and osteophytes at T12-L1. Normal visualized lower thoracic ribs and osseous structures in the pelvis. Procedure Note Abhishek Green, DO - 02/21/2025 Exam: CT ABDOMEN PELVIS WO CONTRAST Date/Time of Exam: 02/21/2025 9:57 AM INDICATION: N12: Pyelonephritis Comparison: CT A/P 05/02/2024. Technique: CT of the abdomen and pelvis was performed without the administration of intravenous contrast. This CT study used one or moreof the following dose reduction techniques: Automated exposure control, Adjustment of the mA and/or kV according to patient size, Use ofiterative reconstruction technique. Patient radiation dose is recorded for eachexam using dose tracking software. Contrast: None. Findings: Evaluation of solid abdominal viscera, lymph nodes, bowel and vascular structures is degraded without oral or IV contrast. ABDOMEN: The visualized lower thorax demonstrates subsegmental atelectasis inlower lung bases. There are no pleural effusions. Heart is normal sized. The liver is normal-sized with normal attenuation. Cholecystectomy.There is no biliary ductal dilatation. A cyst in the left lateral segmentliver 1.4 cm. There is a normal-appearing spleen. No perisplenic fluid collections. There is normal-appearing pancreas, and adrenal glands.There is mild nonspecific perinephric fat stranding in the right side. No pararenal fluid collections. There is no free air, ascites or bowel obstruction present. There is no hiatal hernia. Decompressed stomach. Normal-appearing duodenal loop.There is minimal vascular calcifications in infrarenal aorta without aneurysm. PELVIS: The bladder is mildly distended without focal bladder wall thickening. Small fat-containing right inguinal hernia. There are follicles in the ovaries. Nabothian cyst in the cervix. There is a normal-appearing rectum and sigmoid colon. There is normal descending colon, transverse and right colon. The small bowel loops are nondilated. There is a normal appendix present. BONES: No acute osseous abnormalities or intraosseous lesions. Mild anteriordisc bulging and osteophytes at T12-L1. Normal visualized lower thoracic ribs and osseous structures in the pelvis. IMPRESSION: 1. Mild fat stranding around the right kidney without right hydroureteronephrosis. Findings are concerning for right-sided pyelonephritis. If warranted, repeat study with IV contrast including delayed phase imaging recommended. 2. Cholecystectomy. No biliary ductal dilatation. Hepatic cyst in theleft lateral segment liver 1.4 cm sized. 3. Normal bowel including appendix. No hernias or lymphadenopathy. > Interpreting Provider: Abhishek Green DO on 02/21/2025 10:15 AM Mono Myers DO CT ORDERABLES Final Result * ECHO COMPLETE W BUBBLE STUDY (02/20/2025 3:35 PM CDT) IVSd 2D 0.77 cm SSM CV FUJ I PACS LVIDd 4.881 cm SSM CV FUJ I PACS LVIDs 3.314 cm SSM CV FUJ I PACS LVOT diam 2.07 cm SSM CV FUJ I PACS LVPWd 0.597 cm SSM CV FUJ I PACS LV A4C EF 63.008 % SSM CV FUJ I PACS LV EDV A4C 89.63 ml SSM CV FU JI PACS LV ESV A4C 33.156 ml SSM CV FU JI PACS LVOT pk grad 4.186 mmHg SSM CV FUJI PACS LVOT pk umberto 102.294 cm/s SSM CV F UJI PACS RVIDd 3.568 cm SSM CV FUJ I PACS LA vol BP 44.681 ml SSM CV FUJ I PACS RA area 11.597 cm SSM CV FUJI PACS AV area pk umberto 3.001 cm SSM CV FUJI PACS AV pk grad 5.267 mmHg SSM CV FU JI PACS AV pk umberto 114.751 cm/s SSM CV FUJ I PACS MV A pk umberto 48.2 cm/s SSM CV F UJI PACS MV E pk umberto 72.915 cm/s SSM CV F UJI PACS MV E' lateral umberto 16.962 cm/s SSM CV FUJI PACS TAPSE 2.405 cm SSM CV FUJ I PACS TR pk umberto 234.152 cm/s SSM CV FUJ I PACS Ascending aorta 3.054 cm SSM CV FUJI PACS IVC Diam Expiration 2.278 cm SSM CV FUJI PACS Sinus of Valsalva 3.539 cm SSM CV FUJI PACS LA vol index 0.027 l/m SSM CV FUJI PACS Myocardial strain charge 2 unitless SSM CV FUJI PACS Anatomical Region Laterality Modality Ultrasound 02/20/2025 12:3 1 PM CDT Narrative 02/20/2025 5:14 PM CDT Summary * Left ventricle is normal in size, with normal systolic function, wall motion is normal, and diastolic function is normal. * Left ventricular systolic function is normal with an estimated ejection fraction of 60-65% by visual estimate. * Left ventricular wall thickness is normal. * Right ventricle is normal in size with normal systolic function. * Estimated pulmonary arterial systolic pressure is 37 mmHg. * Tricuspid valve is grossly normal, with no stenosis, and trace regurgitation. * Mitral valve is grossly normal, with no stenosis, and trace to mild regurgitation. * The aortic root at the sinus of Valsalva is mildly dilated measuring 3.5 cm. * Dilated inferior vena cava with < 50% collapse upon inspiration consistent with significantly elevated right atrial pressure, 15 mmHg. * Agitated saline contrast study at rest and with Valsalva is negative for a shunt. Patient Info Name: Rodger Santamaria Age: 40 years : 1985 Gender: Female Ht: 61 in Wt: 151 lb BSA: 1.74 m2 BP: 116 / 77 mmHg Exam Date: 02/20/2025 12:31 PM Patient Status: I/P Study Site: [facility] EStudy Info Technical Quality: Adequate Exam Type: ECHO COMPLETE W BUBBLE STUDY Indications R47.89 - Spell of change in speech Procedure(s) * A complete 2D, color Doppler, spectral Doppler, and M-Mode transthoracic echocardiogram was performed. Staff Referring Physician: Mono Myers Ordering Provider: Mono Myers Attending Physician: Mono Myers Razor Sharpener: Neli Hernandez [facility] Left Ventricle Left ventricle is normal in size, with normal systolic function, wall motion is normal, and diastolic function is normal. Left ventricular systolic function is normal with an estimated ejection fraction of 60-65% by visual estimate. Left ventricular wall thickness is normal. Right Ventricle Right ventricle is normal in size with normal systolic function. Left Atrium The left atrium is normal in size with a left atrial volume index of 27 ml/m2 by BP MOD. Right Atrium Right atrial chamber is normal with a right area of 11.6 cm2. Atrial Septum Agitated saline contrast study at rest and with Valsalva is negative for a shunt. Aortic Valve Aortic valve is trileaflet with no stenosis, and no clinically significant regurgitation. Pulmonic Valve Pulmonic valve is not well visualized, but grossly normal, with no stenosis, and trace regurgitation. Mitral Valve Mitral valve is grossly normal, with no stenosis, and trace to mild regurgitation. Tricuspid Valve Tricuspid valve is grossly normal, with no stenosis, and trace regurgitation. Estimated pulmonary arterial systolic pressure is 37 mmHg. Inferior Vena Cava Dilated inferior vena cava with < 50% collapse upon inspiration consistent with significantly elevated right atrial pressure, 15 mmHg. Pulmonary Veins Normal flow patterns noted in the pulmonary veins. Pericardium/Pleural Pericardium is normal in appearance with no evidence for significant pericardial effusion. Aorta The aortic root at the sinus of Valsalva is mildly dilated measuring 3.5 cm. The ascending aorta is normal in size measuring 3.1 cm with an index of 1.8 cm/m2. Measurements Left Ventricular Outflow Tract Name Value Normal LVOT 2D LVOT Diameter 2.1 cm LVOT Area 3.4 cm2 LVOT Doppler LVOT Peak Velocity 1.0 m/s LVOT Peak Gradient 4 mmHg Mitral Valve Name Value Normal MV Diastolic Function MV E Peak Velocity 0.7 m/sec MV A Peak Velocity 0.5 m/sec MV E/A 1.5 MV Decel Time (PW) 123 ms MV Annular TDI MV Septal e' Velocity 11 cm/s >=8 MV E/e' (Septal) 6 <=8 MV Lateral e' Velocity 17 cm/s >=10 MV E/e' (Lateral) 4 <=8 MV e' Average 14 cm/s MV E/e' (Average) 5 Tricuspid Valve Name Value Normal TV Regurgitation Doppler TR Peak Velocity 2.3 m/s TR Peak Gradient 22 mmHg Estimated PAP/RSVP RA Pressure 15 mmHg <=5 PA Systolic Pressure 37 mmHg <35 RV Systolic Pressure 37 mmHg <36 Aorta Name Value Normal Ascending Aorta Sinus of Valsalva Diameter 3.5 cm 2.4-3.6 Sinus of Valsalva Index 2.0 cm/m2 1.4-2.2 Asc Ao Diameter 3.1 cm 1.9-3.5 Asc Ao Diameter Index 1.8 cm/m2 1.0-2.2 Venous Name Value Normal IVC/SVC IVC Diameter 2.3 cm <=2.1 Aortic Valve Name Value Normal AV Doppler AV Peak Velocity 1.15 m/s AV Peak Gradient 5 mmHg AV Area (Cont Eq Umberto) 3.00 cm2 AV DI (Umberto) 0.89 AV Regurgitation 2D LVOT Area 3.36 cm2 Ventricles Name Value Normal LV Dimensions 2D/MM IVS Diastolic Thickness (2D) 0.8 cm 0.6-0.9 LVID Diastole (2D) 4.9 cm 3.8-5.2 LVPW Diastolic Thickness (2D) 0.6 cm 0.6-0.9 LVID Systole (2D) 3.3 cm 2.2-3.5 LV Mass (2D Cubed) 107 g 67-162 LV Mass Index (2D Cubed) 61 g/m2 43-95 Relative Wall Thickness (2D) 0.24 <=0.42 LV Fractional Shortening/Ejection Fraction 2D/MM LV Fractional Shortening (2D) 32 % 27-45 LV EF (2D Teicholz) 60 % 54-74 LV Diastolic Volume (4C MOD) 90 ml LV EF (4C MOD) 63 % LV Diastolic Length (4C) 8.3 cm LV Systolic Length (4C) 6.7 cm LV Stroke Volume (4C MOD) 56 ml RV Dimensions 2D/MM RVID Diastole (2D) 3.6 cm 2.5-3.5 TAPSE 2.4 cm >=1.7 Atria Name Value Normal LA Dimensions LA Volume (BP MOD) 45 ml LA Volume Index (BP MOD) 27 ml/m2 16-34 RA Dimensions RA Area (4C) 12 cm2 <=18 RA Area (4C) Index 7 cm2/m2 Report Signatures Finalized by Chris Colmenares on 02/20/2025 05:14 PM Procedure Note Chris Colmenares MD - 02/20/2025 Summary * Left ventricle is normal in size, with normal systolic function,wall motion is normal, and diastolic function is normal. * Left ventricular systolic function is normal with an estimatedejection fraction of 60-65% by visual estimate. * Left ventricular wall thickness is normal. * Right ventricle is normal in size with normal systolic function. * Estimated pulmonary arterial systolic pressure is 37 mmHg. * Tricuspid valve is grossly normal, with no stenosis, and trace regurgitation. * Mitral valve is grossly normal, with no stenosis, and trace to mild regurgitation. * The aortic root at the sinus of Valsalva is mildly dilated measuring3.5 cm. * Dilated inferior vena cava with < 50% collapse upon inspirationconsistent with significantly elevated right atrial pressure, 15 mmHg. * Agitated saline contrast study at rest and with Valsalva is negativefor a shunt. Patient Info Name: Rodger Santamaria Age: 40 years : 1985 Gender: Female Ht: 61 in Wt: 151 lb BSA: 1.74 m2 BP: 116 / 77 mmHg Exam Date: 02/20/2025 12:31 PM Patient Status: I/P Study Site: [facility] Primary Location: [facility] EStudy Info Technical Quality: Adequate Exam Type: ECHO COMPLETE W BUBBLE STUDY Indications R47.89 - Spell of change in speech Procedure(s) * A complete 2D, color Doppler, spectral Doppler, and M-Modetransthoracic echocardiogram was performed. Staff Referring Physician: Mono Myers Ordering Provider: Mono Myers Attending Physician: Mono Myers Razor Sharpener: Neli Hernandez [facility] Left Ventricle Left ventricle is normal in size, with normal systolic function, wallmotion is normal, and diastolic function is normal. Left ventricular systolic function is normal with an estimated ejection fraction of 60-65% byvisual estimate. Left ventricular wall thickness is normal. Right Ventricle Right ventricle is normal in size with normal systolic function. Left Atrium The left atrium is normal in size with a left atrial volume index of27 ml/m2 by BP MOD. Right Atrium Right atrial chamber is normal with a right area of 11.6 cm2. Atrial Septum Agitated saline contrast study at rest and with Valsalva is negative fora shunt. Aortic Valve Aortic valve is trileaflet with no stenosis, and no clinicallysignificant regurgitation. Pulmonic Valve Pulmonic valve is not well visualized, but grossly normal, with nostenosis, and trace regurgitation. Mitral Valve Mitral valve is grossly normal, with no stenosis, and trace to mild regurgitation. Tricuspid Valve Tricuspid valve is grossly normal, with no stenosis, and trace regurgitation. Estimated pulmonary arterial systolic pressure is 37mmHg. Inferior Vena Cava Dilated inferior vena cava with < 50% collapse upon inspirationconsistent with significantly elevated right atrial pressure, 15 mmHg. Pulmonary Veins Normal flow patterns noted in the pulmonary veins. Pericardium/Pleural Pericardium is normal in appearance with no evidence for significant pericardial effusion. Aorta The aortic root at the sinus of Valsalva is mildly dilated measuring 3.5cm. The ascending aorta is normal in size measuring 3.1 cm with an index of1.8 cm/m2. Measurements Left Ventricular Outflow Tract Name Value Normal LVOT 2D LVOT Diameter 2.1 cm LVOT Area 3.4 cm2 LVOT Doppler LVOT Peak Velocity 1.0 m/s LVOT Peak Gradient 4 mmHg Mitral Valve Name Value Normal MV Diastolic Function MV E Peak Velocity 0.7 m/sec MV A Peak Velocity 0.5 m/sec MV E/A 1.5 MV Decel Time (PW) 123 ms MV Annular TDI MV Septal e' Velocity 11 cm/s >=8 MV E/e' (Septal) 6 <=8 MV Lateral e' Velocity 17 cm/s >=10 MV E/e' (Lateral) 4 <=8 MV e' Average 14 cm/s MV E/e' (Average) 5 Tricuspid Valve Name Value Normal TV Regurgitation Doppler TR Peak Velocity 2.3 m/s TR Peak Gradient 22 mmHg Estimated PAP/RSVP RA Pressure 15 mmHg <=5 PA Systolic Pressure 37 mmHg <35 RV Systolic Pressure 37 mmHg <36 Aorta Name Value Normal Ascending Aorta Sinus of Valsalva Diameter 3.5 cm 2.4-3.6 Sinus of Valsalva Index 2.0 cm/m2 1.4-2.2 Asc Ao Diameter 3.1 cm 1.9-3.5 Asc Ao Diameter Index 1.8 cm/m2 1.0-2.2 Venous Name Value Normal IVC/SVC IVC Diameter 2.3 cm <=2.1 Aortic Valve Name Value Normal AV Doppler AV Peak Velocity 1.15 m/s AV Peak Gradient 5 mmHg AV Area (Cont Eq Umberto) 3.00 cm2 AV DI (Umberto) 0.89 AV Regurgitation 2D LVOT Area 3.36 cm2 Ventricles Name Value Normal LV Dimensions 2D/MM IVS Diastolic Thickness (2D) 0.8 cm 0.6-0.9 LVID Diastole (2D) 4.9 cm 3.8-5.2 LVPW Diastolic Thickness (2D) 0.6 cm 0.6-0.9 LVID Systole (2D) 3.3 cm 2.2-3.5 LV Mass (2D Cubed) 107 g 67-162 LV Mass Index (2D Cubed) 61 g/m2 43-95 Relative Wall Thickness (2D) 0.24 <=0.42 LV Fractional Shortening/Ejection Fraction 2D/MM LV Fractional Shortening (2D) 32 % 27-45 LV EF (2D Teicholz) 60 % 54-74 LV Diastolic Volume (4C MOD) 90 ml LV EF (4C MOD) 63 % LV Diastolic Length (4C) 8.3 cm LV Systolic Length (4C) 6.7 cm LV Stroke Volume (4C MOD) 56 ml RV Dimensions 2D/MM RVID Diastole (2D) 3.6 cm 2.5-3.5 TAPSE 2.4 cm >=1.7 Atria Name Value Normal LA Dimensions LA Volume (BP MOD) 45 ml LA Volume Index (BP MOD) 27 ml/m2 16-34 RA Dimensions RA Area (4C) 12 cm2 <=18 RA Area (4C) Index 7 cm2/m2 Report Signatures Finalized by Chris Colmenares on 02/20/2025 05:14 PM us Mono Myers DO ECHO CUPID Final Result * EEG (02/20/2025 12:00 PM CDT) 02/20/2025 12:0 0 PM CDT Narrative Procedure Note Amos Coles MD - 02/24/2025 12:[address] [facility] Neurodiagnostics Laboratory EEG Patient: RODGER SANTAMARIA MPatient Type: CSN: [id number] Bday/Age: 06 1985 40 Stn/Rm/Bed: [place] [address] Sex/Race: F 1 Unit #: [id number] Patient Adrs: [id number] Prim Phys: Attend Phys: SWETA [facility]//Zip: [place] [address] GARCIA 01 Admit Date: February 18, 2025 Disch To: Disch Date: DATE OF SERVICE: 02/20/2025 referring physician: Amos Coles M.D. REPORT TITLE: EEG Report BODY AFTER REPORT TITLE: CLINICAL INFORMATION: 40-year-old female came to the emergency room forfever, brain fog, speech issues, hematuria, double vision. Inability toambulate due to muscle spasm of the leg. She fell and began for 4 days. MEDICATIONS: Currently: 1. She is on Tylenol. 2. Albuterol inhaler. 3. She is on Symbicort. 4. Flexeril. 5. Atarax. 6. Latuda. 7. Minipress. 8. Desyrel. The patient has spell in the living room when her speech became slurredand she was dizzy. TECHNICAL REMARKS: This 21-channel recording employing disk electrodeswith collodion according to International 10/20 electrode placement. EEGwas performed on [employer] system. There was some muscle artifact duringthis recording. REPORT: A well-defined posterior basic rhythm was seen during thisrecording. The background rhythm was from 9 to 9.5 hertz per second.This does attenuate with eye opening. There was no anteroposteriorgradient. No sharp or epileptiform discharges were noticed. No electrographic seizures were noticed. HYPERVENTILATION: Hyperventilation was not performed. PHOTIC STIMULATION: Photic stimulation did not produce any driving. The background rhythm was in theta and alpha range throughout therecording. EKG showed normal sinus rhythm. IMPRESSION: This is basically a normal EEG during alert and awake states.A normal EEG does not exclude seizure. Clinical correlation isrequired. Amos Coles M.D. SAS/MODL /[id number] cc: Fouzia Cruz M.D. EEG REPORT us Amos Coles MD NEUROLOGY ORDERABLES Final Resul t [facility] * HEMOGLOBIN A1C (02/20/2025 4:46 AM CDT) [facility] Signature Hemoglobin A1c 4.9 4.2 - 5.6 % 02/20/2025 5:24 AM CDT [facility] Estimated Average Glucose 94 mg/dL 02/20/2025 5:24 AM CDT [facility] Blood BLOOD SPECIMEN / Unknown Lab Venipuncture / Unknown 02/20/2025 4:46 AM CDT 02/20/2025 4:59 AM CDT Narrative [facility] - 02/20/2025 5:24 AM CDT HbA1c Interpretation: Normal: < 5.7% Pre-diabetes: 5.7-6.4% Diabetes: Equal to or greater than 6.5% Test results diagnostic of diabetes should be repeated for confirmation. Treatment target values recommended by ADA and other clinical organizations should be used to evaluate metabolic control in patients. This test should not replace glucose testing for patients with Type 1 diabetes, pediatric patients, or women. Falsely low HbA1c results may be observed in patients with clinical conditions that shorten erythrocyte life span or decrease mean erythrocyte age such as the presence of unstable hemoglobin variants, elevated hemoglobin F level or other causes of hemolytic anemia. HbA1c may not accurately reflect glycemic control when clinical conditions that affect erythrocyte survival are present. Severe Iron deficiency anemia may yield falsely high results. Hemoglobin A1c assay should not be used to diagnose or monitor diabetes in patients with malignancy, recent blood transfusion, chronic kidney or liver disease. This method may yield falsely low results when hemoglobin (HbF) exceeds 5% in the specimen. The [employer] Alinity assay for the measurement of HbA1c is a National Glycohemoglobin Standardization Program (NGSP) certified method. [facility] - CHEMISTRY ORDERABLES Final Result Performing Organization Address [facility]/ZIP Co de Phone Number [facility] [address] * (ABNORMAL) [id number] BLOOD (02/20/2025 4:46 AM CDT) [facility] Fixcx-4-Dcpopwcv sin 302(H) 90 - 200 mg/dL 02/22/2025 4:21 AM CDT [employer] ([facility]) Comment: To convert to umol/L, multiply mg/dL by 0.185 Performed By: [employer] [address] [place] [address] Mill Hand: Keyshawn Robles MD, PhD CLIA Number: [id number] Blood BLOOD SPECIMEN / Unknown Lab Venipuncture / Unknown 02/20/2025 4:46 AM CDT 02/20/2025 4:58 AM CDT [facility] - CHEMISTRY ORDERABLES Final Result Performing Organization Address [facility]/ZIP Co de Phone Number [facility] [address] [place] [address] * (ABNORMAL) LIPID PROFILE (02/20/2025 4:46 AM CDT) [facility] Cholesterol 116 <200 mg/dL 02/20/2025 5:22 AM CDT [facility] Triglycerides 188(H) <150 mg/dL 02/20/2025 5:22 AM T [facility] HDL Cholesterol 11(L) >40 mg/dL 5:22 AM T [facility] Chol HDL Ratio 10.5(H) 1.0 - 6.0 02/20/2025 5:22 AM T [facility] LDL Calculated 67 65 - 130 mg/dL 02/20/2025 5:22 AM T [facility] VLDL Calculated 38(H) <=30 mg/dL 5:22 AM T [facility] Blood BLOOD SPECIMEN / Unknown Lab Venipuncture / Unknown 02/20/2025 4:46 AM CDT 02/20/2025 4:59 AM CDT Narrative [facility] - 02/20/2025 5:22 AM CDT Lipid Profile Comment: CHOLESTEROL LEVEL..................CLINICAL INTERPRETATION LESS THAN 200 MG/DL..............................DESIRABLE 200-239 MG/DL..............................BORDERLINE HIGH GREATER THAN 240 MG/DL................................HIGH LDL-CHOLESTEROL LEVEL..............CLINICAL INTERPRETATION LESS THAN 100 MG/DL................................OPTIMAL 100-129 MG/DL.................................NEAR OPTIMAL GREATER THAN 160 MG/DL...........................HIGH RISK HDL RISK LEVEL GREATER THEN 60 MG/DL............................DECREASED 40-60 MG/DL........................................AVERAGE LESS THAN 40 MG/DL...............................INCREASED TRIGLYCERIDE LEVEL..................CLINICAL INTERPRETATION LESS THAN 150 MG/DL...............................DESIRABLE 150-199 MG/DL...............................BORDERLINE HIGH 200-499 MG/DL..........................................HIGH GREATER THAN 500..................................VERY HIGH THE NATIONAL CHOLESTEROL EDUCATION PROGRAM HAS SET THE ABOVE GUIDELINES (REFERANCE VALUES) FOR CHOLESTEROL AND HDL. RISK ASSOCIATED WITH CHOLESTEROL/HDL RATIOS RISK....................MALE RATIO.............FEMALE RATIO 1/2 AVERAGE.................<3.4.......................<3.3 LOW RISK.................... 4.0 ...................... 3.8 AVERAGE..................... 5.0 ...................... 4.5 2X AVERAGE.................. 9.5 ...................... 7.0 3X AVERAGE...................>23........................>11 Mono Myers DO LAB - CHEMISTRY ORDERABLES Final Result [facility] [address] * MRI Brain Wo Contrast (02/19/2025 6:21 PM CDT) Anatomical Region Laterality Modality Head Magnetic Resonan ce 02/19/2025 7:06 PM CDT Impressions 02/20/2025 10:23 AM CDT IMPRESSION: 1.No hemorrhage, acute ischemic insult, mass displacement, or edema. 2.Minimal for age subcortical white matter changes as a common nonspecific incidental finding. Other etiologies of multifocal white matter changes such as demyelinating insults postinfectious, et cetera, felt highly unlikely from this pattern of presentation. Edited by Tigist Cruz on 02/20/2025 8:29 AM > Interpreting Provider: Alex Kraft MD on 02/20/2025 10:23 AM Narrative 02/20/2025 10:23 AM CDT PROCEDURE: MRI BRAIN WO CONTRAST DATE/TIME OF EXAM: 02/19/2025 6:21 PM CLINICAL INFORMATION: None relevant/not provided if blank. Indication: R47.89: Spell of change in speech. Additional History: COMPARISON: Head CT 02/18/2025. TECHNIQUE: MRI of the brain was performed without contrast. FINDINGS: No intraparenchymal blood degradation products. No restricted diffusion to denote an acute ischemic insult. There is no proteinaceous extra-axial fluid collection. High signal intensity in the high left frontal subcortical white matter most consistent with some minimal perivascular gliosis as a common finding even in this age group. There is no loss of the peripheral cortical ribbon. There is normal flow void present in the large vessels of the skull base at the [place]. The craniocervical junction is normal. No mastoid or middle ear effusion. No maxillary sinus fluid levels. The globes and postseptal soft tissues are normal. Coronal images shows no abnormal medial temporal lobe signal abnormality. Procedure Note Alex Kraft MD - 02/20/2025 PROCEDURE: MRI BRAIN WO CONTRAST DATE/TIME OF EXAM: 02/19/2025 6:21 PM CLINICAL INFORMATION: None relevant/not provided if blank. Indication: R47.89: Spell of change in speech. Additional History: COMPARISON: Head CT 02/18/2025. TECHNIQUE: MRI of the brain was performed without contrast. FINDINGS: No intraparenchymal blood degradation products. No restricted diffusionto denote an acute ischemic insult. There is no proteinaceous extra-axial fluid collection. High signal intensity in the high left frontal subcortical white matter most consistent with some minimal perivascular gliosis as a common finding even in this age group. There is no loss ofthe peripheral cortical ribbon. There is normal flow void present in thelarge vessels of the skull base at the [place]. The craniocervical junction is normal. No mastoid or middle ear effusion. No maxillarysinus fluid levels. The globes and postseptal soft tissues are normal. Coronal images shows no abnormal medial temporal lobe signalabnormality. IMPRESSION: 1.No hemorrhage, acute ischemic insult, mass displacement, or edema. 2.Minimal for age subcortical white matter changes as a commonnonspecific incidental finding. Other etiologies of multifocal white matter changes such as demyelinating insults postinfectious, et cetera, felt highly unlikely from this pattern of presentation. Edited by Tigist Cruz on 02/20/2025 8:29 AM > Interpreting Provider: Alex Kraft MD on 02/20/2025 10:23 AM Mono harish LUU MR ORDERABLES Final Result * CARDIAC EKG ORDER (02/19/2025 2:55 PM CDT) Narrative 02/19/2025 2:55 PM CDT Ordered by an unspecified provider. Scanned Document CARDIAC SERVICES ORDERABLES Fin al Result * LACTIC ACID BLOOD REFLEX TO REPEAT (02/18/2025 8:28 PM CDT) Lactic Acid 0.78 0.5 - 2 mmol/L 02/18/2025 8:47 PM CDT [facility] Blood BLOOD SPECIMEN / Unknown Venipuncture / Unknown 02/18/2025 8:28 PM CDT 02/18/2025 8:28 PM CDT us Sweta Garcia MD LAB - CHEMISTRY ORDERABL ES Final Result Performing Organization Address City/State/[facility] Co de Phone Number [facility] [address] * (ABNORMAL) DRUG ABUSE URINE SCREEN 10 (02/18/2025 8:00 PM CDT) [facility] Amphetamines Screen Urine Negative Negative 02/18/2025 8:29 PM CDT [facility] Barbiturates Screen Urine Negative Negative 02/18/2025 8:29 PM CDT [facility] Benzodiazepines Screen Urine Negative Negative 02/18/2025 8:29 PM CDT [facility] Cannabinoids Screen Urine Positive(A) Negative 02/18/2025 8:29 PM CDT [facility] Cocaine Screen Urine Negative Negative 02/18/2025 8:29 PM CDT [facility] Methadone Screen Urine Negative Negative 02/18/2025 8:29 PM CDT [facility] Opiate Screen Urine Negative Negative 02/18/2025 8:29 PM CDT [facility] Phencyclidine Screen Urine Negative Negative 02/18/2025 8:29 PM CDT [facility] Tricyclics Screen Urine Negative Negative 02/18/2025 8:29 PM CDT [facility] Methamphetamine Screen Urine Negative Negative 02/18/2025 8:29 PM CDT [facility] Buprenorphine Screen Urine Negative Negative 02/18/2025 8:29 PM CDT [facility] Oxycodone Screen Urine Negative Negative 02/18/2025 8:29 PM CDT [facility] Urine URINE / Unknown Collection / Unknown 02/18/2025 8:00 PM CDT 02/18/2025 8:15 PM CDT Narrative [facility] - 02/18/2025 8:29 PM CDT This is a presumptive/unconfirmed test for medical treatment purposes only. Clinical consideration and professional judgment should be applied when using presumptive results. If confirmatory testing, such as gas chromatography-mass spectrometry (GC/MS), of any positive results of this test is required, please notify the laboratory within 7 days of collection. This test is intended only for monitoring or management of patients. It is not intended for use in job-related and/or legal-related purposes. The cutoff value for each analyte is: Barbiturates.....200 ng/mL Benzodiazepines......150 ng/mL Cocaine..........150 ng/mL Opiates..............100 ng/mL Phencyclidine.....25 ng/mL Tricyclics...........300 ng/mL Cannabinoid.......50 ng/mL Amphetamines.........500 ng/mL Methadone........200 ng/mL Methamphetamines.....500 ng/mL Buprenorphine.....10 ng/mL Oxycodone............100 ng/mL Sweta Garcia MD LAB - URINE CHEMISTRY OR DERABLES Final Result Performing Organization Address City/[facility]/ZIP Co de Phone Number [facility] [address] * (ABNORMAL) PTT (02/18/2025 7:54 PM CDT) Pathologist [facility] PTT 43.7(H) 23.0 - 38.4 sec 02/18/2025 8:08 PM CDT [facility] Blood BLOOD SPECIMEN / Unknown Venipuncture / Unknown 02/18/2025 7:54 PM CDT 02/18/2025 7:54 PM CDT Sweta Garcia MD LAB - COAGULATION ORDERA BLES Final Result Performing Organization Address City/[facility]/ZIP Co de Phone Number [facility] [address] * (ABNORMAL) PT-INR (02/18/2025 7:54 PM CDT) [facility] PT 14.6 11.3 - 14.8 sec 02/18/2025 8:08 PM CDT [facility] INR 1.15(L) 2 - 3 02/18/2025 8:08 PM CDT [facility] Blood BLOOD SPECIMEN / Unknown Venipuncture / Unknown 02/18/2025 7:54 PM CDT 02/18/2025 7:54 PM CDT Narrative [facility] - 02/18/2025 8:08 PM CDT Recommended therapeutic INR ranges for Oral Anticoagulant Therapy: 2.0-3.0 For prevention of Thrombosis or Embolism and treatment of Venous Thrombosis. 2.5- 3.5 for prevention of Recurrent Embolism or treatment of patients with Mechanical Prosthetic Heart Valves. Sweta Garcia MD LAB - COAGULATION ORDERA BLES Final Result Performing Organization Address [facility] Co de Phone Number [facility] [address] * HCG URINE QUALITATIVE (02/18/2025 7:53 PM CDT) Pathologist [facility] hCG Qualitative Urine Negative Negative 02/18/2025 7:58 PM CDT [facility] Specific [place] UA 1.011 1.005 - 1.030 02/18/2025 7:58 PM CDT [facility] Urine URINE / Unknown 02/18/2025 7 :53 PM CDT 02/18/2025 7:53 PM CDT Sweta Garcia MD LAB - URINALYSIS ORDERAB LES Final Result Performing Organization Address [facility] Co de Phone Number [facility] [address] * CT BRAIN - Stroke (02/18/2025 7:47 PM CDT) Anatomical Region Laterality Modality Head Computed Tomogra phy 02/18/2025 9:37 PM CDT Impressions 02/18/2025 9:39 PM CDT IMPRESSION: 1. UNREMARKABLE, FOR AGE, UNENHANCED CT EXAMINATION OF THE BRAIN.. 2. A PRELIMINARY REPORT WAS GIVEN BY [facility] AT THE TIME OF THE EXAMINATION'S COMPLETION. > Interpreting Provider: Bradley Carrero MD on 02/18/2025 9:39 PM Narrative 02/18/2025 9:39 PM CDT PROCEDURE: CT BRAIN STROKE, DATE/TIME OF EXAM: 02/18/2025 7:47 PM, LOCATION [facility] INDICATION: R47.89: Spell of change in speech ADDITIONAL CLINICAL INFORMATION: Ordering Provider Reason For Exam: Technologist Note: Additional: COMPARISON: 04/02/2022 CT BRAIN INDICATION: 40 year year old Female with headache, vision changes by seeing double and triple, inability to walk, uncontrolled muscle movements all over fecal incontinence for 3 days, bilateral hip pain radiating to her lower extremities, TECHNIQUE: Unenhanced axial images were made from the skull base to the cranial vertex. One or more of the following CT dose reduction techniques were utilized: - Automated exposure control (AEC) - Adjustment of mA and/or kV, according to the patient's size - use of iterative reconstruction technique - CT scan done according to ALARA or ALARA/IMAGE GENTLY FINDINGS: Comparison is made to the unenhanced CT examination of brain from 04/02/2022.. There is normal lynch/white matter differentiation. I do not see any evidence of hemorrhage, edema, mass or mass-effect. There are no extra-axial fluid collections. The paranasal sinuses included in the study are well aerated. No specific bony abnormalities are seen. Procedure Note Bradley Carrero MD - 02/18/2025 PROCEDURE: CT BRAIN STROKE, DATE/TIME OF EXAM: 02/18/2025 7:47 PM, LOCATION [facility] INDICATION: R47.89: Spell of change in speech ADDITIONAL CLINICAL INFORMATION: Ordering Provider Reason For Exam: Technologist Note: Additional: COMPARISON: 04/02/2022 CT BRAIN INDICATION: 40 year year old Female with headache, vision changes byseeing double and triple, inability to walk, uncontrolled muscle movements all over fecal incontinence for 3 days, bilateral hip pain radiating to her lower extremities, TECHNIQUE: Unenhanced axial images were made from the skull base to the cranial vertex. One or more of the following CT dose reduction techniques were utilized: - Automated exposure control (AEC) - Adjustment of mA and/or kV, according to the patient's size - use of iterative reconstruction technique - CT scan done according to ALARA or ALARA/IMAGE GENTLY FINDINGS: Comparison is made to the unenhanced CT examination of brainfrom 04/02/2022.. There is normal lynch/white matter differentiation. I do not see any evidence of hemorrhage, edema, mass or mass-effect. There are no extra-axial fluid collections. The paranasal sinusesincluded in the study are well aerated. No specific bony abnormalities are seen. IMPRESSION: 1. UNREMARKABLE, FOR AGE, UNENHANCED CT EXAMINATION OF THE BRAIN.. 2. A PRELIMINARY REPORT WAS GIVEN BY [facility] AT THE TIME OF THE EXAMINATION'S COMPLETION. > Interpreting Provider: Bradley Carrero MD on 02/18/2025 9:39 PM us Sweta Garcia MD CT ORDERABLES Final Re sult * CT Lumbar Spine Wo Contrast (02/18/2025 7:47 PM CDT) Anatomical Region Laterality Modality Spine Computed Tomogra phy 02/19/2025 8:16 AM CDT Impressions 02/19/2025 8:28 AM CDT IMPRESSION: 1.Mild scoliosis. 2.No displaced fracture. 3.Other findings as above. Follow-up MRI recommended. Edited by Tigist Cruz on 02/19/2025 8:19 AM > Interpreting Provider: Gregory Vasquez MD on 02/19/2025 8:28 AM Narrative 02/19/2025 8:28 AM CDT PROCEDURE: CT LUMBAR SPINE WO CONTRAST DATE/TIME OF EXAM: 02/18/2025 7:47 PM CLINICAL INFORMATION: None relevant/not provided if blank. Indication: M54.9: Spine pain. Additional History: Lumbar spine pain. COMPARISON: 01/07/2024 TECHNIQUE: CT of the lumbar spine was preformed utilizing standard protocol. Sagittal and coronal reformatted images were rendered. [facility] interpreted the exam and sent a preliminary report. CT dose reduction technique was used, including Automated Exposure Control. FINDINGS: Mild left convex lumbar scoliosis is present. There is no displaced fracture, subluxation or dislocation. Small posterolateral disc bulges are present in the lower lumbar spine which may contribute to bilateral neural foraminal narrowing. MRI would be more sensitive for disc disease. The paravertebral soft tissues are otherwise unremarkable. Procedure Note Gregory Vasquez MD - 02/19/2025 PROCEDURE: CT LUMBAR SPINE WO CONTRAST DATE/TIME OF EXAM: 02/18/2025 7:47 PM CLINICAL INFORMATION: None relevant/not provided if blank. Indication: M54.9: Spine pain. Additional History: Lumbar spine pain. COMPARISON: 01/07/2024 TECHNIQUE: CT of the lumbar spine was preformed utilizing standard protocol.Sagittal and coronal reformatted images were rendered. [facility] interpreted the exam and sent a preliminary report. CT dose reduction technique was used, including Automated ExposureControl. FINDINGS: Mild left convex lumbar scoliosis is present. There is no displaced fracture, subluxation or dislocation. Small posterolateral disc bulgesare present in the lower lumbar spine which may contribute to bilateralneural foraminal narrowing. MRI would be more sensitive for disc disease. The paravertebral soft tissues are otherwise unremarkable. IMPRESSION: 1.Mild scoliosis. 2.No displaced fracture. 3.Other findings as above. Follow-up MRI recommended. Edited by Tigist Cruz on 02/19/2025 8:19 AM > Interpreting Provider: Gregory Vasquez MD on 02/19/2025 8:28 AM us Sweta Garcia MD CT ORDERABLES Final Re sult * CT Thoracic Spine Wo Contrast (02/18/2025 7:47 PM CDT) Anatomical Region Laterality Modality Spine Computed Tomogra phy 02/19/2025 8:18 AM CDT Impressions 02/19/2025 8:28 AM CDT IMPRESSION: 1.Degenerative changes. 2.No fracture. 3.Emphysematous changes and atelectasis. 4.Right thyroid nodule or cyst. Edited by Tigist Cruz on 02/19/2025 8:22 AM > Interpreting Provider: Gregory Vasquez MD on 02/19/2025 8:28 AM Narrative 02/19/2025 8:28 AM CDT PROCEDURE: CT THORACIC SPINE WO CONTRAST DATE/TIME OF EXAM: 02/18/2025 7:47 PM CLINICAL INFORMATION: None relevant/not provided if blank. Indication: Thoracic spine pain. Additional History: COMPARISON: 01/07/2024 TECHNIQUE: CT of the thoracic spine was performed utilizing standard protocol. [facility] interpreted the exam and sent a preliminary report. CT dose reduction technique was used, including Automated Exposure Control. FINDINGS: There is no displaced fracture, subluxation or dislocation. Mild endplate degenerative changes are present. No overt central canal stenosis is present. MRI would be more sensitive for disc disease. Within the right lobe of the thyroid, a low-attenuation nodule measuring 1.96 cm is redemonstrated. This may be further evaluated with ultrasound. Bilateral lower lobe atelectasis is present. Emphysematous changes are present. Procedure Note Gregory Vasquez MD - 02/19/2025 PROCEDURE: CT THORACIC SPINE WO CONTRAST DATE/TIME OF EXAM: 02/18/2025 7:47 PM CLINICAL INFORMATION: None relevant/not provided if blank. Indication: Thoracic spine pain. Additional History: COMPARISON: 01/07/2024 TECHNIQUE: CT of the thoracic spine was performed utilizing standard protocol. [facility] interpreted the exam and sent a preliminary report. CT dose reduction technique was used, including Automated ExposureControl. FINDINGS: There is no displaced fracture, subluxation or dislocation. Mildendplate degenerative changes are present. No overt central canal stenosis is present. MRI would be more sensitive for disc disease. Within the right lobe of the thyroid, a low-attenuation nodule measuring 1.96 cm is redemonstrated. This may be further evaluated with ultrasound. Bilateral lower lobe atelectasis is present. Emphysematous changes are present. IMPRESSION: 1.Degenerative changes. 2.No fracture. 3.Emphysematous changes and atelectasis. 4.Right thyroid nodule or cyst. Edited by Tigist Cruz on 02/19/2025 8:22 AM > Interpreting Provider: Gregory Vasquez MD on 02/19/2025 8:28 AM us Sweta Garcia MD CT ORDERABLES Final Re sult * CT Cervical Spine Wo Contrast (02/18/2025 7:47 PM CDT) Anatomical Region Laterality Modality Spine Computed Tomogra phy 02/19/2025 8:23 AM CDT Impressions 02/19/2025 8:28 AM CDT IMPRESSION: 1. Loss of normal lordosis. 2. Degenerative changes. 3. Mild central stenosis C6-7. 4. Right thyroid nodule. Ultrasound recommended. Edited by Keila Alcaraz on 02/19/2025 8:28 AM > Interpreting Provider: Gregory Vasquez MD on 02/19/2025 8:28 AM Narrative 02/19/2025 8:28 AM CDT PROCEDURE: CT CERVICAL SPINE WO CONTRAST DATE/TIME OF EXAM: 02/18/2025 7:47 PM INDICATION: Cervical spine pain. Additional History: COMPARISON: None. TECHNIQUE: CT of the cervical spine was performed utilizing standard protocol. Sagittal and coronal reformatted images were rendered. [facility] interpreted the exam and sent a preliminary report. CT dose reduction technique was used, including Automated Exposure Control. FINDINGS: There is loss of normal cervical lordosis consistent with muscle strain or patient positioning. Endplate degenerative changes are present. There is no displaced fracture, subluxation, or dislocation. The ring of C1 is intact. At C6-7, posterior disc bulge and spondylitic change results in mild central canal stenosis. There is a low-attenuation cystic nodule right thyroid measuring 2.07 cm. This may be further evaluated with ultrasound. Emphysematous changes are seen in the lung apices. Procedure Note Gregory Vasquez MD - 02/19/2025 PROCEDURE: CT CERVICAL SPINE WO CONTRAST DATE/TIME OF EXAM: 02/18/2025 7:47 PM INDICATION: Cervical spine pain. Additional History: COMPARISON: None. TECHNIQUE: CT of the cervical spine was performed utilizing standard protocol. Sagittal and coronal reformatted images were rendered. [facility] interpreted the exam and sent a preliminary report. CT dose reduction technique was used, including Automated ExposureControl. FINDINGS: There is loss of normal cervical lordosis consistent with muscle strainor patient positioning. Endplate degenerative changes are present. There isno displaced fracture, subluxation, or dislocation. The ring of C1 isintact. At C6-7, posterior disc bulge and spondylitic change results in mild central canal stenosis. There is a low-attenuation cystic nodule right thyroid measuring 2.07 cm. This may be further evaluated withultrasound. Emphysematous changes are seen in the lung apices. IMPRESSION: 1. Loss of normal lordosis. 2. Degenerative changes. 3. Mild central stenosis C6-7. 4. Right thyroid nodule. Ultrasound recommended. Edited by Keila Alcaraz on 02/19/2025 8:28 AM > Interpreting Provider: Gregory Vasquez MD on 02/19/2025 8:28 AM Sweta Garcia MD CT ORDERABLES Final Re sult * XR CHEST 1VW PORTABLE (02/18/2025 7:45 PM CDT) Anatomical Region Laterality Modality Chest Computed Radiogr aphy 02/18/2025 8:03 PM CDT Impressions 02/18/2025 8:04 PM CDT IMPRESSION: No consolidation > Interpreting Provider: Gregory Vasquez MD on 02/18/2025 8:04 PM Narrative 02/18/2025 8:04 PM CDT XR CHEST 1VW PORTABLE INDICATION: R00.0: Tachycardia. COMPARISON: 08/22/2024 FINDINGS: There is no consolidation, pleural effusion, or pneumothorax. The heart size is normal. Procedure Note Gregory Vasquez MD - 02/18/2025 XR CHEST 1VW PORTABLE INDICATION: R00.0: Tachycardia. COMPARISON: 08/22/2024 FINDINGS: There is no consolidation, pleural effusion, or pneumothorax. The heart size is normal. IMPRESSION: No consolidation > Interpreting Provider: Gregory Vasquez MD on 02/18/2025 8:04 PM Sweta Garcia MD DIAGNOSTIC IMAGING ORDER TAMIKO Final Result * SARS-COV-2 (COVID-19) RAPID (02/18/2025 7:45 PM CDT) COVID-19 PCR Not detected Not detected, Invalid 02/18/2025 8:25 PM CDT [facility] Microbiology SPECIMEN FROM NASOPHARYNGEAL STRUCTURE / Unknown Collection / Unknown 02/18/2025 7:45 PM CDT 02/18/2025 7:49 PM CDT Narrative [facility] - 02/18/2025 8:25 PM CDT The Cepheid Xpert Xpress SARS-COV-2 has been authorized by the Food and Drug administration (FDA) under an Emergency Use Authorization (EUA). This test has been validated in accordance with the FDA's guidance document Policy for Diagnostic Testing in Laboratories Certified to perform High Complexity Testing under CLIA prior to Emergency Use Authorization for Coronavirus Disease-2019 during the Public Health Emergency issued on November 02, 2019. FDA independent review of this validation is pending. This test is only authorized for the duration of time the declaration that circumstances exist justifying the authorization of emergency use of in vitro diagnostic tests for detection of SARS-COV-2 virus and/or diagnosis of COVID-19 infection under 564(b)(1)of the Act, 21 U.S.C. 360bbb-3 (b) (1), unless the authorization is terminated or revoked sooner. Sweta Garcia MD LAB - MICROBIOLOGY ORDER TAMIKO Final Result Performing Organization Address [facility]/ZIP Co de Phone Number [facility] [address] * (ABNORMAL) CK BLOOD (02/18/2025 7:45 PM CDT) [facility] CK 20(L) 29 - 168 U/L 02/18/2025 8:09 PM CDT [facility] Blood BLOOD SPECIMEN / Unknown Venipuncture / Unknown 02/18/2025 7:45 PM CDT 02/18/2025 7:45 PM CDT Sweta Garcia MD LAB - CHEMISTRY ORDERABL ES Final Result Performing Organization Address [facility] Co de Phone Number [facility] [address] * EKG 12-LEAD (02/18/2025 7:35 PM CDT) [facility] Ventricular Rate 107 BPM [facility] Atrial Rate 107 BPM [facility] P-R Interval 140 ms [facility] QRS Duration ms 82 ms [facility] Q-T Interval ms 328 ms [facility] QTC Calculation (Bezet) 437 ms [facility] Calculated P [place] 36 degrees [facility] Calculated R [place] -9 degrees [facility] Calculated T [place] 16 degrees [facility] Interpretation EKG SINUS TACHYCARDIA NONSPECIFIC T WAVE ABNORMALITY ABNORMAL ECG Confirmed by MD MAGDALENA, [facility] ([id number]) on 02/19/2025 2:02:15 PM [facility] 02/18/2025 7:35 PM CDT 02/19/2025 2:02 PM CDT Sweta Garcia MD ECG ORDERABLES Edited R esult - Final [facility] * Critical Care (02/18/2025 7:23 PM CDT) Narrative Sweta Garcia MD - 02/18/2025 7:23 PM CDT Sweta Garcia MD 02/20/2025 4:54 AM Critical Care Performed by: Sweta Garcia MD Authorized by: Sweta Garcia MD Critical care provider statement: Critical care time (minutes): 60 Critical care was necessary to treat or prevent imminent or life-threatening deterioration of the following conditions: MEDIA PROMOTER failure or compromise Critical care was time spent personally by me on the following activities: Blood draw for specimens, development of treatment plan with patient or surrogate, discussions with consultants, evaluation of patient's response to treatment, obtaining history from patient or surrogate, review of old charts, re-evaluation of patient's condition, pulse oximetry, ordering and review of radiographic studies, ordering and review of laboratory studies and ordering and performing treatments and interventions Sweta Garcia MD PROCEDURE/MINOR SURGICAL ORDERABLES Final Result * CULTURE BLOOD (02/18/2025 7:21 PM CDT) Only the most recent of2 resultswithin the time period is included. Culture No growth day 5 AMARI 02/23/2025 11:31 PM CDT [facility] Blood PERIPHERAL BLOOD / Unknown Venipuncture / Unknown 02/18/2025 7:21 PM CDT 02/18/2025 7:31 PM CDT us Sweta Garcia MD LAB - MICROBIOLOGY ORDER TAMIKO Final Result [facility] [address] [place] [address], [place] [phone] * (ABNORMAL) PROCALCITONIN LEVEL (02/18/2025 6:46 PM CDT) Procalcitonin 4.45(H) <=0.10 ng/mL 02/18/2025 7:39 PM CDT [facility] Blood BLOOD SPECIMEN / Unknown Lab Venipuncture / Unknown 02/18/2025 6:46 PM CDT 02/18/2025 7:00 PM CDT Narrative [facility] - 02/18/2025 7:39 PM CDT If baseline PCT is - >2.0 ng/mL: A PCT level above 2.0 ng/mL on the first day of ICU admission is associated with a high risk for progression to severe sepsis and/or septic shock. - <0.5 ng/mL: A PCT level below 0.5 ng/mL on the first day of ICU admission is associated with a low risk for progression to severe sepsis and/or septic shock. If the Procalcitonin measurement is performed shortly after systemic infection process has started (usually less than 6 hours), these values may still be low. As various non-infectious conditions are known to induce procalcitonin as well, Procalcitonin levels between 0.50 ng/mL and 2.00 ng/mL should be reviewed carefully to take into account the specific clinical background and condition(s) of the individual patient. The change in procalcitonin (PCT) concentration over time provides support in decision making on antibiotic discontinuation for suspected or confirmed septic patients and for suspected or confirmed lower respiratory tract infection (LRTI). Follow-up samples should be tested once every 1-2 days based upon physician discretion taking into account the patient's evolution and progress. Discontinuation of antibiotic therapy may be considered for suspected or confirmed septic patients if the current PCT is <= 0.5 ng/mL or <= 0.25 ng/mL for confirmed LRTI. If the PCT delta drop is > 80% in either condition, discontinuation of antibiotic therapy may be indicated. Duration of antibiotics should not be determined solely on PCT; established guidelines for the indication should be followed. Results should be interpreted in the context of a patient's clinical status and other laboratory tests. PCT peak: Highest observed PCT concentration PCT current: Most recent PCT concentration Calculate delta PCT using the following equation: Delta PCT = PCT Peak - PCT current X 100% PCT Peak The Change in Procalcitonin Calculator is available at [email or web address] If clinical picture has not improved and PCT remains high, reevaluate and consider treatment failure or other causes. Sweta Garcia MD LAB - CHEMISTRY ORDERABL ES Final Result Performing Organization Address [facility] de Phone Number [facility] [address] * HIV-1 HIV-2 ANTIBODY + HIV P24 AG PANEL (03/25/2022 4:32 AM CDT) HIV1/2 Ab + P24 Ag NON-REACTI VE/NEGATIV E NON-REACTI VE/NEGATIV E 03/25/2022 5:46 AM CDT [facility] Blood BLOOD SPECIMEN / Unknown Lab Venipuncture / Unknown 03/25/2022 4:32 AM CDT 03/25/2022 5:07 AM CDT Kam Amato III, MD LAB - CHEMISTRY ORDERABLES Final Result Performing Organization Address [facility] de Phone Number [facility] [address] from Last 3 Months or Most Recently Relevant to Health Maintenance Additional Health Concerns Infection Onset Date Last Indicated ESBL GNR Comment:Urine 02/18/25; 02/18/2025 02/18/2025 Insurance MEDICAID [employer] [place] [employer] [place] [employer] [place] Advance Directives Documents on File Type Date Recorded Patient Urinalysis Technician Expl anation Adv Directive/Living Will/POA 02/19/2025 Adv Directive/Living Will/POA 11/11/2021 1:30 PM Adv Directive/Living Will/POA 01/24/2013 1:04 PM * Full Code (Latest Code Status on File) Date Activated Date Inactivated Comments 02/25/2025 4:57 PM To update the patient's code status, place a code status order. Do not modify or discontinue any currently active code status orders. * Full Code Date Activated Date Inactivated Comments 02/19/2025 12:51 AM 02/24/2025 3:08 PM * Full Code Date Activated Date Inactivated Comments 08/22/2024 5:13 PM 08/24/2024 3:38 PM * Full Code Date Activated Date Inactivated Comments 08/22/2024 5:13 PM 08/22/2024 5:13 PM * Full Code Date Activated Date Inactivated Comments 06/02/2023 8:16 PM 06/03/2023 2:56 PM Care Teams Earth Sciences Professor Relationship Specialty Start Date End Date Katia Grubbs PA-C [address] [place] [address] PCP - General Physician Bilingual Kindergarten Teacher 10/04/19 Iraida Carrillo APRN-DALILA [address] [phone] Nurse Practitioner Nurse Practitioner 09/19/24
--- NOTE | 2025-05-18 16:48 | ED_ITS ---
HPI - Extremity Problem General Chief complaint: Extremity Problem,Nontraumatic Stated complaint: nerve pain in feet Time Seen by Provider: 05/18/25 16:37 Source: patient Mode of arrival: ambulatory Limitations: no limitations History of Present Illness HPI Narrative: Patient presents with report of nerve pain in her bilateral feet. She experiences a bilateral numbness and tingling in her feet both along the plantar aspect as well as on the dorsal aspect and radiating proximally and to ankles and shins. The pain is not particularly worse 1st thing in the morning although when her symptoms 1st started more than a month ago it was initially thought that she might have plantar fasciitis. Through further workup however given her associated low back pain, she did obtaining imaging and this includes MRI imaging that showed facet hypertrophy of the lumbar region. All of this has been a new diagnosis and process over the past month or so. No trauma/injury, including none acutely. She has been trialing various regimens, Aleve, Tylenol, IcyHot, lidocaine topically. Hot baths work. She is also on gabapentin. Started with 100mg BID dosing then 100mg in the AM and 300mg in the PM, now 100mg AM and 400mg QHS although she was having such pain today she took two 100mg tabs. Her PCP is Earlene Dean in [place]. She recently moved to the area for family reasons. She reports the pain as feeling like it itches inside and she also feels tailbone pressure and in her hip joints. Her pain has been attributed to this imaging finding. Not a diabetic and doesn't drink alcohol. Work up also included other etiologies and she is currently on Vitamin D and folic acid. She has an appointment at [facility] to see a neurologist. Had to reschedule the appointment to see an orthopedist. The paresthesias, tingling/numbness is described as a bee sting feeling. Has labs on phone in patient portal from February 2025 with WBC 12.4, Hgb 13.7, Hcg 41.7, plt 593. Na 136. K 3.4. Ca 9.48. When she moved to this area she is now in a place with stairs and doesn't know if that is what has caused her symptoms to progress/worsen. Related Data Allergies Allergy/AdvReac Type Severity Reaction Status Date / Time ibuprofen Allergy Severe Hives / Verified 05/18/25 16:38 Red Face acetaminophen Allergy Unknown Anxiety Verified 05/18/25 16:38 hydrocodone Allergy Unknown Anxiety Verified 05/18/25 16:38 tramadol Allergy Unknown Anxiety Verified 05/18/25 16:38 [facility] Past Medical History Medical History Facet hypertrophy of lumbar region Social History Social History (Updated 05/19/25 @ 22:27 by Ryanne Lindquist MD) Social History: Recently moved to the area from [place] for family issues Alcohol use details: denies Exam 2 Narrative: GENERAL: Well-appearing, well-nourished, and in no acute distress. HEAD: Normocephalic, atraumatic. EYES: Non injected, non icteric ENT: Nares clear, no rhinorrhea or epistaxis. Gross auditory acuity intact. NECK: Supple. No meningismus. CHEST: Speaking in full sentences. No respiratory distress. HEART: Regular rate and rhythm. . ABDOMEN: Soft, nondistended. EXTREMITIES: Normal range of motion. No lower extremity edema. Palpable and grossly symmetric DP pulses bilaterally. No limitations in range of motion. SKIN: Warm, dry, no rash. Skin intact without overlying ecchymosis, erythema, lesions, cellulitis NEURO: No focal deficits. Alert and oriented. Answering questions. Following commands. Normal speech without aphasia or dysarthria. Sensation intact throughout distal lower extremities including along plantar aspect, bilateral dorsal aspects, and ankles bilaterally. PSYCH: Normal mood and affect. Course Vital Signs Vital signs: Vital Signs Temperature 98.5 F 05/18/25 15:49 Pulse Rate 83 05/18/25 15:49 Respiratory Rate 16 05/18/25 15:49 Blood Pressure 119/78 05/18/25 15:49 Pulse Oximetry 98 05/18/25 15:49 Oxygen Delivery Room Air 05/18/25 15:49 Temperature 98.5 F 05/18/25 15:49 Pulse Rate 72 05/18/25 18:13 Respiratory Rate 15 05/18/25 18:13 Blood Pressure 102/67 05/18/25 18:13 Pulse Oximetry 98 05/18/25 18:13 Oxygen Delivery Room Air 05/18/25 15:49 MDM - Extremity (Nontraumatic) MDM Narrative Medical decision making narrative: Patient presents with report of bilateral paresthesias in her feet, along plantar aspect as well as dorsal aspect and extending into ankles. Reports a somewhat recent diagnosis of facet hypertrophy of lumbar spine based on MRI imaging obtained through work up with her PCP in [place]. Currently on a somewhat low dose regimen of gabapentin, 100 QAM and 400 QHS In the emergency department they are afebrile with vital signs within normal limits. She reports that she did not drive herself, able to take medications that may be sedating. I do not see any utility in obtaining imaging here as she has had what sounds like a thorough work up with her PCP and has appointment with neurology at [facility] 05/26. Normocytic anemia with no prior for comparison in our EMR however patient has labs from February 2025 on patient portal in phone that show it was 13.7. While this does represent a nearly 2g drop, not anemic enough to suggest this as a cause of her symptoms. Isolated alk phos exam on CMP, otherwise without marked electrolyte abnormalities. For temporary symptomatic management brief course of steroids prescribed and a muscle relaxer at night to help with sleep and alleviate pain. Advised that uptitration of gabapentin should be discussed with PCP and to keep upcoming appointments. Provided contact information as referral for a PCP since moved to the area. Differential Diagnosis Differential diagnosis: Likely other ( neuropathy secondary to known MSK issue though also considered DM, alcohol; vitamin deficiency; symptomatic anemia; electrolyte abnormalities;) Lab Data Attestation: I reviewed the patient's lab results. 05/18/25 17:18 05/18/25 17:18 Labs: Lab Results 05/18/25 Range/Units 17:18 WBC 6.8 (4.5-10.0) K/mm3 RBC 4.05 L (4.2-5.4) M/mm3 Hgb 11.6 L (12.0-15.0) g/dL Hct 35.8 L (37.0-47.0) % MCV 88.4 (80-100) fl MCH 28.6 (26-34) pg MCHC 32.4 (32-36) g/dl RDW 14.0 (11.5-14.5) % Plt Count 252 (150-375) k/mm3 MPV 10.9 H (7.4-10.4) fl Immature Gran % (Auto) 0.3 (0-0.5) % Neut % (Auto) 46.8 (45.5-73.1) % Lymph % (Auto) 38.2 (18.3-44.2) % [place] % (Auto) 9.0 H (2.6-8.5) % Eos % (Auto) 4.7 H (0-4.4) % Baso % (Auto) 1.0 (0.2-1.2) % Lymph # (Auto) 2.60 (0.9-3.2) K/mm3 [place] # (Auto) 0.6 (0.1-0.6) K/mm3 Eos # (Auto) 0.3 (0-0.3) K/mm3 Baso # (Auto) 0.1 (0.0-0.1) K/mm3 Abs Immat Gran (auto) 0.02 (0.00-0.031) K/mm3 Absolute Neuts (auto) 3.2 (1.3-6.7) K/mm3 Absolute Nucleated RBC 0.000 (0.0-0.012) K/mm3 Nucleated RBC % 0.0 (0.0-0.2) % Sodium 138 (137-145) mmol/L Potassium 4.2 (3.4-5.0) mmol/L Chloride 106 (98-107) mmol/L Carbon Dioxide 26 (22-30) mmol/L Anion Gap 6 (4-12) mmol/L BUN 11 (7-17) mg/dL Creatinine 0.72 (0.7-1.0) mg/dL Estim Creat Clear Calc 73 ml/min Estimated GFR > 60 (59 - ) Glucose 103 (65-110) mg/dL Calcium 9.4 (8.4-10.2) mg/dL Magnesium 1.8 (1.6-2.3) mg/dL Total Bilirubin 0.4 (0.2-1.3) mg/dL AST 30 (14-36) U/L ALT 13 (6-35) U/L Alkaline Phosphatase 136 H (38-126) U/L Total Creatine Kinase 57 (30-135) U/L Total Protein 7.1 (6.3-8.2) g/dL Albumin 4.1 (3.5-5.1) g/dL Discharge Plan Discharge Clinical Impression: Normocytic anemia, Alkaline phosphatase raised, Paresthesia of both lower extremities Patient Disposition: Home Condition: Stable Instructions: Antibiotic Form, Paresthesia (ED), Anemia (ED) Additional Instructions: Follow-up with primary care physician. They may recommend uptitrating your gabapentin as you are on a very small dose right now and this is a standard medication that works on neuropathic pain specifically (pain related to nerves). Alternatively Because you recently moved here, the name of a doctor is listed below for you to establish with someone locally. Keep your upcoming neurology appointment at [facility]. A short course of steroids has been prescribed; you received first dose in the ED. try to take before 9:00 a.m. moving forward if possible. Acetaminophen/Tylenol (maximum 4000 mg per day) is safe to take with NSAIDs (ibuprofen/Motrin) for pain relief. Return to the ER if you develop lower extremity weakness, you have numbness or tingling in your private parts, or you are unable to control your ability to urinate/stool. A muscle relaxer at night may temporarily help as well and has been prescribed. Patient Language: [place] Prescriptions: New prednisone 20 mg tablet 20 mg PO DAILY 4 Days Qty: 4 0RF Rx Instructions: rec'd first dose in ED 05/18; take before 9am when possible methocarbamol 750 mg tablet 750 mg PO HS Qty: 7 0RF Follow-up/Referrals: Zackery Qiu MD [Physician, Family Practice] UNKNOWN,DOCTOR [Primary Care Provider] Stand Alone Forms: Work/School Release IP Time of Disposition: 18:03
[2025-05-18 17:25] LABS: Hematocrit 35.8 % (37.0-47.0); Hemoglobin 11.6 g/dL (12.0-15.0); Immature Granulocyte Percent A 0.3 % (0-0.5); Lymphocytes Absolute Auto 2.60 K/mm3 (0.9-3.2); Mean Corpuscular HGB Conc 32.4 g/dl (32-36); Mean Corpuscular Hemoglobin 28.6 pg (26-34); Mean Corpuscular Volume 88.4 fl (80-100); Nucleated Red Blood Cells Absolute Auto 0.000 K/mm3 (0.0-0.012); Nucleated Red Blood Cells Perc 0.0 % (0.0-0.2); Platelet Count Result 252 k/mm3 (150-375); Red Blood Count 4.05 M/mm3 (4.2-5.4); White Blood Count 6.8 K/mm3 (4.5-10.0)
[2025-05-18] MEDS: diazePAM (*CRX) 5 MG TABLET PO (17:27)
[2025-05-18 17:42] LABS: Alanine Aminotransferase 13 U/L (6-35); Albumin Level 4.1 g/dL (3.5-5.1); Alkaline Phosphatase 136 U/L (38-126); Anion Gap 6 mmol/L (4-12); Aspartate Amino Transferase 30 U/L (14-36); Bilirubin,Total 0.4 mg/dL (0.2-1.3); Blood Urea Nitrogen 11 mg/dL (7-17); Calcium 9.4 mg/dL (8.4-10.2); Carbon Dioxide 26 mmol/L (22-30); Chloride 106 mmol/L (98-107); Creatine Kinase 57 U/L (30-135); Estimated CRCL calculation 73 ml/min; Estimated Glomerular Filt Rate > 60; Glucose 103 mg/dL (65-110); Magnesium 1.8 mg/dL (1.6-2.3); Potassium 4.2 mmol/L (3.4-5.0); Sodium 138 mmol/L (137-145); Total Protein 7.1 g/dL (6.3-8.2)
[2025-05-18 18:13] VITALS: BP 102/67; PULSE 72; RESP 15; O2SAT 98
== END 2025-05-18 18:16 | disposition home or self-care (01) ==
PROVIDERS: Emergency Provider Student in an Organized Health Care Education/Training Program
DX: R20.2 Paresthesia of skin (principal); D64.9 Anemia, unspecified; R74.8 Abnormal levels of other serum enzymes
CPT/HCPCS: 36415; 80053; 82550; 83735; 85025; 99283; A9270; J7512

== ENCOUNTER 2025-07-03 14:07 | Observation (INO) | payer OTHER, SELFPAY ==
[2025-07-03] VITALS (7 sets, daily range): BP systolic 102–103; BP diastolic 57–84; PULSE 89–104; RESP 18; TEMP 37–37.3; O2SAT 98–100; BMI 29.3
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
--- NOTE | ~2025-07-03 | CT_ITS ---
EXAMINATION: CT brain wo con DATE: 07/04/2025 18:37 INDICATION: Rapid response TECHNIQUE: Computed tomography (CT) of the head was performed without intravenous contrast. Sagittal and coronal reconstructions were performed. The mA was adjusted according to patient size. Iterative reconstruction technique was employed. The dose-length product was 529.67 mGy-cm. COMPARISON: head CT dated 07/03/2025 FINDINGS: No acute intracranial hemorrhage, acute infarction or abnormal extra axial fluid collection. Ventricles are normal and symmetric. No mass/mass effect. The orbits, paranasal sinuses and mastoid air cells are normal. IMPRESSION: 1. No acute intracranial process. Reviewed, dictated and finalized at location A.
--- NOTE | ~2025-07-03 | US_ITS ---
EXAMINATION: US carotid duplex BI DATE: 07/04/2025 09:50 INDICATION: Diplopia TECHNIQUE: Grayscale, color Doppler, and pulsed Doppler images of the cervical carotid arteries were obtained. The degree of vessel stenosis is placed in one of the following categories: normal, <50%, 50-69%, >=70% but less than near- occlusion, near-occlusion, or total occlusion. Note that percent stenosis relative to normal distal artery lumen diameter is indirectly measured from velocity measurements as described by Heriberto, et al. Radiology 2003; 229:340-346. COMPARISON: None. FINDINGS: RIGHT: The right common carotid artery (CCA) peak systolic velocity (PSV) is 94 cm/s. The right internal carotid artery (ICA) PSV is 92 cm/s. The right ICA end- diastolic velocity (EDV) is 43 cm/s. The right ICA/CCA PSV ratio is 1.0. Grayscale and color Doppler images yield an estimate of <50% diameter reduction from plaque in the ICA. The external carotid artery (ECA) PSV is 78 cm/s. There is antegrade flow in the right vertebral artery. LEFT: The left CCA PSV is 93 cm/s. The left ICA PSV is 98 cm/s. The left ICA EDV is 44 cm/s. The left ICA/CCA PSV ratio is 1.1. Grayscale and color Doppler images yield an estimate of <50% diameter reduction from minimal plaque in the ICA. The ECA PSV is 85 cm/s. There is antegrade flow in the left vertebral artery. IMPRESSION: 1. <50% stenosis in the right internal carotid artery. 2. <50% stenosis in the left internal carotid artery. Reviewed, dictated and finalized at location A.
--- NOTE | ~2025-07-03 | CT_ITS ---
EXAMINATION: CT brain wo con COMPARISON: None HISTORY: lightheadedness, double vision,weakness TECHNIQUE: Axial images were obtained through the brain without IV contrast. CT scan performed using dose optimization techniques including the following automated exposure control; adjustment of mA and/or kV; use of iterative reconstruction technique. Automatic exposure control was used to reduce radiation dose. Permanent radiation dose record is archived to PACS. FINDINGS: No acute infarct or parenchymal hemorrhage. No abnormal mass or mass effect. No midline shift. No extra-axial fluid collections. No hydrocephalus. . Mastoid air cells unremarkable. Sinuses and orbits unremarkable. No acute fracture. No significant facial or scalp soft tissue swelling evident. No radiopaque foreign body is seen. Impression: 1.No acute intracranial abnormality. Reviewed, dictated and finalized at location P. Impression: 1.No acute intracranial abnormality.
--- NOTE | ~2025-07-03 | US_ITS ---
EXAMINATION: US thyroid DATE: 07/04/2025 09:50 INDICATION: Enlarged thyroid TECHNIQUE: Multiple ultrasound images of the thyroid were obtained. COMPARISON: None. FINDINGS: The right thyroid lobe measures 4.5 x 2.4 x 1.8 cm. The left thyroid lobe measures cm. 2.2 cm mixed solid and cystic nodule which is wider than tall with smooth margins, isoechoic solid component and without echogenic foci (TI-RADS 2, not suspicious, no FNA recommended) in the mid right thyroid. There is a second 1.4 cm almost entirely solid hypoechoic nodule inferior right thyroid which is wider than tall with smooth margins and without echogenic foci (TI-RADS 4, moderately suspicious , FNA if >=1.5 cm, annual followup is >=1 cm). There is normal echotexture, echogenicity and vascular flow throughout the remainder of the thyroid gland. IMPRESSION: 1. 2.2 cm TI-RADS 2 and 1.4 cm TI-RADS 4 nodules in the right thyroid for which annual follow-up ultrasound would be recommended. Reviewed, dictated and finalized at location A.
--- NOTE | ~2025-07-03 | CT_ITS ---
EXAMINATION: CT lumbar spine wo con COMPARISON: None HISTORY: low back pain, groin numbness, leg weakness/numb/ TECHNIQUE: Axial images were obtained through the spine without IV contrast. Coronal, sagittal reconstruction images were obtained from the axial views. CT scan performed using dose optimization techniques including the following automated exposure control; adjustment of mA and/or kV; use of iterative reconstruction technique. Automatic exposure control was used to reduce radiation dose. Permanent radiation dose record is archived to PACS. FINDINGS: The vertebral heights are intact. No fracture or subluxation. The disc heights are intact. Soft tissues unremarkable. Impression: No acute abnormality. Reviewed, dictated and finalized at location P. Impression: No acute abnormality.
--- OUTSIDE RECORDS SUMMARY | 2025-07-03 14:45 | XMS_ITS | Data Portability ---
Author Organization [employer] , [facility] Address [address] [place] [address] Assessment No assessment recorded. Plan of Treatment Reminders Order Date Submit Date Provider Last Modified By Organization Details Last Modified Time Details Appointments None recorded. Lab HPV E6+E7 mRNA, qualitativ e PCR, cervix 2024 025 [facility] [place], [address] [place], [address], 5 09:47:18 pap, LB - last pap 2018, hx abnormal pap, cervix, tubal ligation 2024 025 [place] [employer] [facility], [address] [facility], [place], [address], 5 12:46:44 Referral None recorded. Procedures None recorded. Surgeries None recorded. Imaging MAMMO, screening, digital, bilateral 2024 025 [facility] ing Scheduling, [address] [place], [address], 5 16:20:30 Medication Orders None recorded. Patient TargetsNo targets recorded. Patient Instructions Encounter Date Encounter Id Patient Instructions Last Modified By Organization Details Last Modified Time 02/04/2025 [id number] Patient Health Questionnaire-9* [id number] Not available 02/11/2025 10:12:18 body mass index: care instructions tynima Not available 02/04/2025 15:31:39 mammogram: about this test tynima Not available 02/04/2025 15:31:39 Reason for Referral None Reported. Results Created Date Observation Date Name Description Value Unit Range Abnormal Flag Note LastModifiedBy Organization Detail LastModifiedTime 02/05/20 25 02/07/2025 HPV GENOT YPE HPV 16 Negati ve negati ve normal Not Available [address], [address], 02/08/2025 09:47:18 02/05/20 25 02/07/2025 HPV GENOT YPE HPV 18/45 Negati ve negati ve normal Assay can diffe renti ate HPV 16 from HPV 18 and/o r HPV 45. But canno t diffe renti ate betwe en 18 and 45. Not Available [address], [address], 02/08/2025 09:47:18 02/05/20 25 02/06/2025 HPV HIGH RISK HPV high risk POSITI VE negati ve abnormal The HPV High Risk assay is inten ded for use as co-te sting with cytol ogy and not as a subst itute for regul ar cervi jacqueline cytol ogy scree rafy. This assay is not inten ded for use as a scree rafy devic e for women under age 30 with garcia l cervi jacqueline cytol ogy. Not Available [address], [address], 02/08/2025 09:47:19 02/05/2002/10/2025 THINP REP TIS PAP clinical information: normal None given Not Available [employer] [facility] [address] [place], [address], 02/10/2025 12:46:44 02/05/20 25 02/10/2025 THINP REP TIS PAP LMP: normal 01/23 Not Available [employer] [facility] [address] [place], [address], 02/10/2025 12:46:44 02/05/20 25 02/10/2025 THINP REP TIS PAP prev. Pap: normal NONE GIVEN Not Available [facility] [address] [place], [address], 02/10/2025 12:46:44 02/05/2002/10/2025 THINP REP TIS PAP prev. BX: normal NONE GIVEN Not Available [address] [address] [place], [address], 02/10/2025 12:46:44 02/05/20 25 02/10/2025 THINP REP TIS PAP source: normal Cervi x Not Available [address] [address] [place], [address], 02/10/2025 12:46:44 02/05/2002/10/2025 THINP REP TIS PAP statement of adequacy: normal Satis facto ry for evalu ation . Endoc ervic al/tr ansfo rmati on zone compo nent absen t. Not Available [address] [address] [place], [address], 02/10/2025 12:46:44 02/05/20 25 02/10/2025 THINP REP TIS PAP interpretati on/result: normal Cytol ogy Resul ts: Negat adair for intra epith elial lesio n or robel max . Not Available [address] [address] [place], [address], 02/10/2025 12:46:44 02/05/2002/10/2025 THINP REP TIS PAP comment: normal This Pap test has been evalu ated with compu ter roxann hayden techn ology . Not Available [address] [place], [address], 02/10/2025 12:46:44 02/05/20 25 02/10/2025 THINP REP TIS PAP cytotechnolo gist: normal ELL, CT( CP) CT Scree rafy Locat ion: [facility] [address] [place] [address] Not Available [address] [address] [place], [address], 02/10/2025 12:46:44 02/05/20 25 02/10/2025 THINP REP TIS PAP comment EXPLA NATSTEPH Y NOTE: The Pap is a scree rafy test for cervi jacqueline cance r. It is not a diagn ostic test and is subje ct to false negat adair and false posit adair resul ts. It is most relia ble when a satis facto ry sampl e, regul mauri obtai louie, is submi tted with relev ant clini jacqueline findi ngs and histo ry, and when the Pap resul t is evalu ated along with histo musa and curre nt clini jacqueline infor matio n. Not Available [id number] [place], [address], 02/10/2025 12:46:44 Result Notes None recorded. Problems Name Problem SNOMED Code Status Onset Date Resolution Date Notes Provider Name and Address Organization Details Recorded Time Irregula r intermen strual bleeding 43615619 Completed 201208/21/2013 Metrorrha raghu; Location: None Progress: Stable Added By: Mila Campo Add to Current Problems: NO ProblemSt atus: Resolve Not Available [facility] 2 21:12:22 Follicul ar cyst of ovary 4372775 Active 2012 Ovarian cyst; Progress: Stable Added By: Kar Barrera Add to Current Problems: YES ProblemSt atus: Current Not Available [facility] 2 21:12:22 Finding of pattern of menstrua l cycle Active 2018 Other specified irregular menstruat ion; Progress: Stable Added By: Alondra Carlton Add to Current Problems: YES ProblemSt atus: Current Not Available [facility] 2 21:12:42 Problem Notes None recorded. Procedures Surgical History Date Name Laterality Status Provider Name and Address Organization Details Recorded Time 5 Date of Last Pap Smear completed Keila Chan [facility] 02/21/2025 17:25:59 0 Most Recent Mammogram completed Lela Moore [facility] IV 02/04/2025 14:47:52 Colonoscopy completed Lela [facility] IV 02/04/2025 14:37:47 Gall bladder completed Lela Moore [place] [facility] IV 02/04/2025 14:37:47 C Section completed Lela Moore [facility] ANT[facility] IV 02/04/2025 14:37:47 ligation of fallopian tube completed Lelacherelle Moore [place] [employer] IV 02/04/2025 14:46:56 Imaging Results None recorded. Procedure Notes None recorded. Medical Equipment None Reported. Allergies Allergen ID Allergen Name Allergen Category Reaction Reaction Severity Criticality Documentation Date Start Date Code Code System Note Provider Name and Address Organization Details Recorded Time 405198 ibuprofen medicatio n Not available Not available Not available 06/25/20212012 5640 RxNorm Sever ity: Moder ate; Not Available [facility] 01:[facility]07 [id number] tramadol medicatio n rash moderate Not available 02/04/2025 12958 RxNorm Lela Moore [facility] 14:42:48 Medications Name Sig Start Date Stop Date Status Note LastModified by Organization Details LastModified Time fluoxetin e 40 mg capsule TAKE 1 CAPSULE BY MOUTH EVERY DAY 02/04 completed Not Available Not Available Not Available cyclobenz aprine 10 mg tablet TAKE 1 TABLET BY MOUTH THREE TIMES A DAY 02/04 completed Not Available Not Available Not Available prednison e 10 mg tablet PLEASE SEE ATTACHED FOR DETAILED DIRECTIO NS 02/04 completed Not Available Not Available Not Available nicotine 14 mg/24 hr daily transderm al patch APPLY 1 PATCH TO SKIN ONCE DAILY 02/04 completed Not Available Not Available Not Available albuterol sulfate 2.5 mg/3 mL (0.083 %) solution for nebulizat ion INHALE 2.5 MG (3ML) BY MOUTH EVERY 4 HOURS NEEDED FOR SHORTNES S OF BREATH active Not Available Not Available No t Available trazodone 50 mg tablet 1 po QHS 02/04 completed Trazodon e HCl 100mg Tablet RxNorm: 723422 Allow Substitu tion: True Refill Denied: No Refill DateOccu rred: 10/17/19 19 Not Available Not Available Not Available Loestrin Fe 09/23 (28-Day) 1 mg-20 mcg (21)/75 mg (7) tablet Take 1 tablet(s ) by mouth daily as directed . 01/18 completed Loestrin Fe 09/23 28 day 20mcg/1m g/75mg Tablet Allow Substitu tion: True Refill Denied: No For Problem: Metrorrh agia Not Available Not Available Not Available prazosin 1 mg capsule TAKE 1 CAPSULE BY MOUTH EVERYDAY AT BEDTIME active Not Available Not Available No t Available prednison e 20 mg tablet TAKE 2 TABS DAILY FOR 4DAYS, 1TAB DAILY FOR 4DAYS, THEN 1/2 TAB DAILY FOR 4DAYS 02/04 completed Not Available Not Available Not Available methocarb edwar 750 mg tablet TAKE 1 (ONE) TABLET BY MOUTH EVERY 8 HOURS 02/04 completed Not Available Not Available Not Available trazodone 100 mg tablet TAKE 1 TABLET BY MOUTH EVERYDAY AT BEDTIME active Not Available Not Available No t Available benzonata te 100 mg capsule TAKE 1 (ONE) CAPSULE BY MOUTH EVERY 8 HOURS NEEDED FOR COUGH (DRY COUGH) 02/04 completed Not Available Not Available Not Available trazodone 150 mg tablet 1 po QHS 02/04 completed Trazodon e HCl 100mg Tablet RxNorm: [id number] Allow Substitu tion: True Refill Denied: No Refill DateOccu rred: 10/17/19 19 Not Available Not Available Not Available lidocaine 5 % topical patch PLEASE SEE ATTACHED FOR DETAILED DIRECTIO NS 02/04 completed Not Available Not Available Not Available nicotine 21 mg/24 hr daily transderm al patch APPLY 1 PATCH TO SKIN ONCE DAILY 02/04 completed Not Available Not Available Not Available folic acid 1 mg tablet TAKE 1 TABLET BY MOUTH EVERY DAY 02/04 completed Not Available Not Available Not Available hydroxyzi ne HCl 25 mg tablet TAKE 1 (ONE) TABLET BY MOUTH 4 TIMES DAILY NEEDED REASONS: FEELING ANXIOUS active Not Available Not Available No t Available albuterol sulfate HFA 90 mcg/actua tion aerosol inhaler INHALE 2 PUFFS BY MOUTH EVERY 6 HOURS NEEDED active Not Available Not Available No t Available hydroxyzi ne HCl 10 mg tablet TAKE 1 TABLET BY MOUTH THREE TIMES A DAY NEEDED FOR ANXIETY 02/04 completed Not Available Not Available Not Available cefdinir 300 mg capsule TAKE 1 CAPSULE BY MOUTH EVERY 12 HOURS 02/04 completed Not Available Not Available Not Available doxycycli ne hyclate 100 mg tablet TAKE 1 TABLET BY MOUTH TWICE A DAY FOR 7 DAYS 02/04 completed Not Available Not Available Not Available Zantac Take 1 tablet(s ) by mouth bid 10/17 completed Zantac 150mg Tablet RxNorm: [id number] Allow Substitu tion: True Refill Denied: No Refill DateOccu rred: 11/20/19 13 Not Available Not Available Not Available naproxen 02/04 completed Naproxen RxNorm: 79917 Allow Substitu tion: True Refill Denied: No Refill DateOccu rred: 10/17/19 19 Not Available Not Available Not Available Xanax 1 p.o. tid 02/04 completed Xanax 0.5mg Tablet RxNorm: 963726 Allow Substitu tion: True Refill Denied: No Refill DateOccu rred: 10/17/19 19 Not Available Not Available Not Available Symbicort 160 mcg-4.5 mcg/actua tion HFA aerosol inhaler INHALE 2 PUFFS BY MOUTH TWICE A DAY active Not Available Not Available No t Available lurasidon e 40 mg tablet TAKE 1 TABLET BY MOUTH EVERY DAY WITH BREAKFAS T 02/04 completed Not Available Not Available Not Available Latuda Take 1 tablet(s ) by mouth daily with food. 2018 active Latuda 60mg Tablet RxNorm: [id number] Allow Substitu tion: True Refill Denied: No Refill DateOccu rred: 10/17/19 19 Not Available Not Available Not Available [facility]amb [facility] with Large Mask USE 1 DEVICE ONCE DAILY active Not Available Not Available No t Available lurasidon e 20 mg tablet TAKE 1 (ONE) TABLET BY MOUTH DAILY WITH FOOD 02/04 completed Not Available Not Available Not Available lurasidon e 60 mg tablet TAKE 1 TABLET BY MOUTH EVERY DAY WITH FOOD active Not Available Not Available No t Available Inderal XL 60mg once a day 02/04 completed Inderal XL 120mg Capsules , Extended Release RxNorm: [id number] Allow Substitu tion: True Refill Denied: No Refill DateOccu rred: 10/17/19 19 Not Available Not Available Not Available Vitals Date Recorded Body height Body mass index (BMI) Body weight Systolic And Diastolic Provider Name and Address Organization Details Last Updated DateTime 02/04/2025 154.94 cm 27.5 kg/m2 41360.33 g 124/78 mm[Hg] Lela Oscar [facility] 02/04/2025 14:56:01 Social History Question Answer Notes LastModified by [employer] Details LastModified Time Tobacco Smoking Status Current Every Day Smoker Lela Kowalskisneha chaudhari, [facility] IV 02/04/2025 14:37:42 If You Are , What Was Your Level Of Alcohol Consumption Prior To ? None Information not available 02/04/2025 Are You Blind Or Do You Have Difficulty Seeing? No Information not available 02/04/2025 Are You Deaf Or Do You Have Serious Difficulty Hearing? No Information not available 02/04/2025 What Type Of Diet Are You Following? REGULAR Information not available 02/04/2025 What Is The Highest Grade Or Level Of School You Have Completed Or The Highest Degree You Have Received? [id number] Information not available 02/04/2025 How Many Children Do You Have? 4 Information not available 02/04/2025 What Is Your Relationship Status? Information not available 02/04/2025 Are You Sexually Active? Yes Information not available 02/04/2025 At What Age Did You Start Smoking Tobacco? 11 Information not available 02/04/2025 How Much Tobacco Do You Smoke? 0.5 PPD Information not available 02/04/2025 How Many Years Have You Smoked Tobacco? 28 Information not available 02/04/2025 Sex: Unknown Functional Status Question Answer Note LastModified by [employer] Details LastModified Time Do you use any illicit or recreational drugs? No Information not available 02/04/2025 Do you or have you ever used any other forms of tobacco or nicotine? No Information not available 02/04/2025 What is your level of alcohol consumption? Occasional Information not available 02/04/2025 Are you currently employed? No Information not available 02/04/2025 What is your exercise level? None Information not available 02/04/2025 Mental Status None recorded. Family History Relationship Description Onset Age of this Age Resolved Age Notes LastModified by Organization Details LastModified Time Mother Depressive disorder Not available 2024 14:37:21 Unspecified Relation Malignant neoplasm of colon Not available 2024 14:37:21 Maternal Grandfather Malignant neoplasm of lung Not available 2024 14:37:21 Father Gastric ulcer Not available 2024 14:37:21 Medical History Condition Response Depression Y Panic Attacks Y Anxiety Disorder Y Arthritis Y Seasonal allergies Y Eating Disorder Y Asthma Y Bipolar Disorder Y Hepatitis Y Chicken Pox Y Gynecological History Statement/Question Response Flow Heavy Date of last HPV 02/04/2025 Frequency of Cycle (Q days) 14-21 Date of LMP 01/23/2025 Date of Last Pap Smear 02/04/2025 Duration of Flow (days) 3-7 Most Recent Mammogram 09/04/2009 Current Control Method Sterilizati on Age at Menarche 10 Obstetrics History GPAL:G 0 P 0 0 0 0 Past Encounters Encounter ID Performer Location Encounter Start Date Encounter Closed Date Diagnosis/Indication Diagnosis SNOMED-CT Code Diagnosis ICD10 Code Diagnosis IMO Codes Diagnosis Note [id number] FLORENTIN Raymundo [facility] [address] [place] [address] 02/04/2025 14:35:36 02/04/2025 16:08:20 Gynecologic examination 48740520 Z01.419 Mammogram Order given today COUNSELING was provided today regarding the following topics: healthy eating habits. Patient education given on weight management ., regular exercise. Patient handout given on Fitness, breast self-exam, COVID Vaccine: R/B of vaccine discussed today., and Calcium and Vitamin D. Advised to avoid sick contacts, practice social distancing , good handwashin g. If you develop respirator y symptoms, fever,coug h, or shortness of breath you should contact healthcare provider immediatel y. 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 Screening for malignant neoplasm of cervix 488725818 Z12.4 Screening for malignant neoplasm of breast 647377529 Z12.31 Depression screening 171 365269 Z13.31 refer to intake screening Health Concerns Section Related Observation LastModified by Organization Detai ls LastModified Time None Recorded Concern Status LastModified by Organization Details LastModified Time None Recorded Advance Directives Directive None Recorded Payers Insurance Date Sequence Insurance Name Policy Number Policy Padron Covered Member ID Padron Member ID Guarantor Name 02/11/2025 1 [employer] BETTER HEALTH OF [place] ON OR AFTER 08/04/2020 (MEDICAID REPLACEMENT - HMO) Ana Malone [id number] Ana Malone Notes Date Note Type Note Provider Name and Address Organization Details Recorded Time 5 text/html Annual GYNReported by PatientHistoryFor history, patient reportsno gynecologic complaints.Genitourinary symptomsFor menstrual cycle, patient reportsirregular cycle intervals (had 2 cycles last month and had missed period 2 cycles prior. increased cramping). For urinary symptoms, patient reportsno hematuriaandno incontinence. For vulva, patient reportsno genital lesion. For vagina, patient reportsnormal vaginal discharge.Breast symptomsFor breast, patient reportsno breast pain,no breast lump, andno nipple discharge.ContraceptionFo r current contraception, patient reportssatisfied with current contraception,monogamous relationship, andtubal ligation.Endocrine symptomsFor menopausal symptoms, patient reportshot flashesandinsomnia due to night sweatsbut reportsnormal vaginal lubrication. For sexual complaints, patient reportsno sexual complaints,no pain during intercourse, andnormal libido.Psychological symptomsFor psychological symptoms, patient reportsdepressionandanxie ty(on medication- had pcp increase dosage).Preventative measuresFor preventive measures, patient reportsencourage self breast examination,encourage regular exercise,encourage no tobacco use,encourage regular mammograms starting age 40, andneeds to schedule mammogram. FLORENTIN Raymundo [address] [facility], [place], [address], [facility] 02/04/2025 22:59:42 OBGyn Episode No OBEpisode recorded.
--- OUTSIDE RECORDS SUMMARY | 2025-07-03 14:45 | XMS_ITS | Clinical Summary ---
Author Organization [facility] Address [address] [place] [address] Care Team Providers Care Housing Inspectors Name Role Phone Katia Grubbs PA-C Primary Care Provider [phone] Iraida Carrillo APRN-ULTRASOUND MANAGER Unavailable [phone] Source Comments [facility],non-owned Affiliates and Associated Physician Practices is amultiple site organization consisting of ambulatory clinics and hospital sitesin [place], [place], [place] and [place]. This disclosure is being madepursuant to the Care Everywhere program and may not contain all information available regarding this patient. Last updated 18.[facility] Allergies Active Allergy Reactions Criticality Noted Date [...] bedtime 30 tablet 3 01/22/20 25 Active zonisamide (Zonegran) 100 MG capsule Take 1 (one) capsule by mouth once daily for 30 days 30 capsule 02/26/20 25 Active Additional Information Patient not taking.Reported on 05/06/2025 zonisamide (Zonegran) 100 MG capsule Take 2 (two) capsules by mouth at bedtime for 30 days 60 capsule 02/25/20 25 Active Additional Information Patient not taking.Reported on 05/06/2025 hydrOXYzine HCl (Atarax) 25 MG tablet Take 1 (one) tablet by mouth 4 times daily as needed anxiety 02/27/20 25 Active methocarbamol (Robaxin) 500 MG tablet [...] BREATH 75 mL 3 05/07/20 25 Active vitamin D, ergocalcifero l, (Drisdol) 1.25 MG (05123 UT) capsule TAKE 1 CAPSULE BY MOUTH EVERY 7 DAYS 4 capsule 1 06/30/20 Active folic acid (Folvite) 1 MG tablet TAKE 1 TABLET BY MOUTH EVERY DAY 30 tablet 1 07/01/20 Active lurasidone (Latuda) 60 MG tablet TAKE 1 TABLET BY MOUTH EVERY DAY WITH FOOD 30 tablet 07/01/20 Active prazosin (Minipress) 1 MG capsule TAKE 1 CAPSULE BY MOUTH EVERYDAY AT BEDTIME 30 capsule 07/01/20 Active lurasidone (Latuda) 60 MG tablet Take 1 (one) tablet by mouth daily with food 30 tablet 3 01/22/20 25 2024 Discontinued(R eorder) prazosin (Minipress) 1 MG capsule Take 1 (one) capsule by mouth at bedtime 02/27/20 25 2024 Discontinued(R eorder) folic acid (Folvite) 1 MG tablet Take 1 (one) tablet by mouth once daily 30 tablet 2 04/10/20 25 2024 Discontinued vitamin D, ergocalcifero l, (Drisdol) 1.25 MG (31982 UT) capsule Take 1 (one) capsule by mouth every 7 days (once a week) 4 capsule 2 04/10/20 25 2024 Discontinued lurasidone (Latuda) 60 MG tablet Take 1 (one) tablet by mouth daily with food 30 tablet 06/04/20 25 2024 Discontinued prazosin (Minipress) 1 MG capsule Take 1 (one) capsule by mouth at bedtime 30 capsule 06/04/20 25 2024 Discontinued Active Problems Problem Noted Date Diagnosed Date [...] hemorrhage 02/23/2019 PVC (premature ventricular contraction) 05/02/20 Obsessive-compulsive disorder 04/10/2017 Tobacco use disorder 12/12/2014 [...] organization. Date Type Department Care Team Description 07/01/[address] [phone] Katia Grubbs PA-C Refill Request 06/29/[address] [phone] Katia Grubbs PA-C Refill Request 06/04/[address] [phone] Katia Grubbs PA-C Refill Request 05/07/[address] [phone] Katia Grubbs PA-C Refill Request 05/06/2025 10:30 AM CDT Video Visit [address] [phone] Katia Grubbs PA-C Frequent falls ; Weakness; Radicular pain 04/22/2025 Orders Only [address] [phone] Katia Grubbs PA-C Nicotine abuse 04/22/[address] [phone] Katia Grubbs PA-C Refill Request 04/17/[address] [phone] Katia Grubbs PA-C Refill Request 04/15/2025 10:45 AM CDT Office Visit [address] [phone] Katia Grubbs PA-C Weakness (Primary Dx); Radicular pain; Frequent falls; Spondylosis of lumbosacral region without myelopathy or radiculopathy 04/10/2025 3:15 PM CDT - 04/10/2025 11:59 PM CDT Hospital Encounter [facility] - MRI [address] [place] [address] Katia Grubbs PA-C Discharge Disposition: Home or Self Care 04/10/[address] [phone] Katia Grubbs PA-C Medication Issue 04/08/[address] [phone] Katia Grubbs PA-C MEDICATION REFILL 04/03/[address] [phone] Katia Grubbs PA-C Refill Request 04/02/[address] [phone] Katia Grubbs PA-C Refill Request from Last 3 Months Immunizations Immunization Administration Dates Next Due TDAP (7yrs+) 05/15/2024 Family History Medical History Relation Name Comments Cancer Father Cancer Mother Relation Name Status Comments Father Mother Social History Tobacco Use Types Packs/Day Years Used Date Smoking Tobacco: Former Cigarettes 0.3 15.5 0 03/23/2007 - 03/23/2022 Smokeless Tobacco: Never [...] Recorded Patient Health Questionnaire-2 Score 4 05/06/2025 [facility] [place] [facility] Occup[facility] - Occupational Stress [...] any time in the past 12 m [facility], were you homeless or living in a residential (including now)? 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 Gender Identity Not on file Sexual Orientation [...] 04/15/2025 10:16 AM CDT Plan of Treatment Health Maintenance Due Date Last Done Comments MAMMOGRAM 1983 HEPATITIS B VACCINE (1 of 3 - 19+ 3-dose series) 2002 PNEUMOCOCCAL VACCINE (1 of 2 - PCV) 2002 HPV VACCINE (1 - 3-dose SCDM series) 2010 PAP with HPV 2013 COVID-19 VACCINE (1 - 2024-25 season) 2025 INFLUENZA VACCINE (#1) 2025 SCREENING FOR DIABETES 02/29/2028 , 02/24/2025, 02/23/2025, Additional history exists LIPID TESTING 02/20/2030 02/20/2025, 1104/2023, 09/13/2021, Additional history exists ZOSTER VACCINE (1 of 2) 2033 DTAP/TDAP/TD VACCINES (2 - Td or Tdap) 05/15/2034 05/15/2024 HIV SCREENING Completed 03/25/2022, 04/2022, 05/27/2019 HEPATITIS C SCREENING Completed 02/28/2025 , [...] General On track( 019 11:56 AM CDT) No Monico Villalobos, RN Note: Expected end date: Interventions: Take all medications as prescribed Let your doctor know right away about any changes in your medications Make sure to request a refill of your medication at least one week prior to your last dose Medical Devices Explanted Type Area Industrial Gas Servicer Device Identifier Shelf Expiration Date Model / Serial / Lot Stent Biliary 10fr 7cm Ddnl Bnd Temp Rap Implanted:Qty: 1 on 09/02/2019 by Oswaldo Malone MD at [facility] Explanted:Qty: 1 on 11/04/2019 by Oswaldo Malone MD at [facility] N/A: Bile Duct maufait Scimed 06/02/2021 [id number] / / [id number] Stent Biliary 10mm 8.5fr 60mm 194cm .035 Implanted:Qty: 1 on 11/04/2019 by Oswaldo Malone MD at [facility] Explanted:Qty: 1 on 02/12/2020 by Osawldo Malone MD at [facility] [employer] [facility] 06/13/2028 [id number] / / [id number] Stent Biliary 10mm 8.5fr 60mm 194cm .035 Implanted:Qty: 1 on 02/12/2020 by Oswaldo Malone MD at [facility] Explanted:Qty: 1 on 08/17/2020 by Oswaldo Malone MD at [facility] 09/26/2021 [id number] / / [id number] Stent Biliary 10mm 8.5fr 60mm 194cm .035 Implanted:Qty: 1 on 08/17/2020 by Oswaldo Malone MD at [facility] Explanted:Qty: 1 on 02/25/2021 by Malik Viveros MD at [facility] [id number] / / Procedures Procedure Name Priority Date/Time Associated Diagnosis Comments MRI LUMBAR SPINE WO CONTRAST Routine 04/10/2025 3:59 PM CDT Weakness Bulging lumbar disc COMPREHENSIVE METABOLIC PANEL Routine 02/28/2025 1:55 PM CDT Pyelonephritis HEPATITIS C RNA QUANT REFLX GENOTYPE Routine 02/28/2025 1:55 PM CDT Chronic hepatitis C without hepatic coma (HCC) LIPID PROFILE AM Draw 02/20/2025 4:46 AM CDT HIV-1 HIV-2 ANTIBODY + HIV P24 [...] Not Detected IU/mL 03/03/2025 4:19 PM CDT [facility] ([facility]) HCV Quant by NAAT (log IU/mL) Not Detected log IU/mL 03/03/2025 4:19 PM CDT [facility] ([facility]) Comment: Hepatitis C Virus (HCV) by Quantitative NAAT result was less than 4,000 IU/mL (3.6 log IU/mL); therefore no further testing added. HCV Quant by NAAT Interp Not Detected Not Detected 03/03/2025 4:19 PM CDT [facility] ([facility]) Comment: INTERPRETIVE INFORMATION: HCV by Quantitative [...] and cellular tissue-based products (HCT/P). Performed By: [facility] [address] [place] [address] Child Care Assistant: Keyshawn Robles MD, PhD CLIA Number: [id number] Blood BLOOD SPECIMEN / Unknown Venipuncture / Unknown 02/28/2025 1:55 PM CDT 02/28/2025 1:55 PM CDT us Katia Grubbs PA-C LAB - CHEMISTRY ORDERABLES Fin al Result [facility] ([facility]) [address] [place] [address] * (ABNORMAL) COMPREHENSIVE METABOLIC PANEL (02/28/2025 1:55 PM CDT) Glucose 97 70 - 125 mg/dL 02/28/2025 4:55 PM CDT [facility] Sodium 136 136 - 145 mmol/L 02/28/2025 4:55 PM CDT [facility] Potassium 3.4 3.4 - 5.1 mmol/L 02/28/2025 4:55 PM CDT [facility] Chloride 103 98 - 107 mmol/L 02/28/2025 4:55 PM CDT [facility] CO2 25 22 - 29 mmol/L 02/28/2025 4:55 PM CDT [facility] Calcium 9.48 8.4 - 10.2 mg/dL 02/28/2025 4:55 PM CDT [facility] Anion Gap 8 6 - 16 mmol/L 02/28/2025 4:55 PM CDT [facility] BUN 8.9(L) 9.8 - 20.1 mg/dL 02/28/2025 4:55 PM T [facility] Creatinine 0.71 0.57 - 1.11 mg/dL 02/28/2025 4:55 PM CDT [facility] Alkaline Phosphatase 119 40 - 150 U/L 02/28/2025 4:55 PM CDT [facility] ALT 19 7 - 30 U/L 02/28/2025 4:55 PM T [facility] AST 25 5 - 34 U/L 02/28/2025 4:55 PM T [facility] Protein Total 8.5(H) 6.4 - 8.3 gm/dL 02/28/2025 4:55 PM T [facility] Albumin 4.1 3.1 - 4.5 gm/dL 02/28/2025 4:55 PM T [facility] Globulin Total 4.4(H) 2.6 - 4.0 gm/dL 02/28/2025 4:55 PM T [facility] Albumin/Globulin Ratio 0.9 0.9 - 1.6 02/28/2025 4:55 PM T [facility] Bilirubin Total 0.3 0.2 - 1.2 mg/dL 02/28/2025 4:55 PM T [facility] eGFR >90 >90 mL/min/1.7 3m2 02/28/2025 4:55 PM T [facility] Comment:The GFR result was c alculated using the updated CKD-EPI Creatinine Equation (2020). Blood BLOOD SPECIMEN / Unknown Venipuncture / Unknown 02/28/2025 1:55 PM CDT 02/28/2025 1:55 PM CDT us Katia Grubbs PA-C LAB - CHEMISTRY ORDERABLES Fin al Result Performing Organization Address City/State/[facility] Co de Phone Number [facility] [address] * (ABNORMAL) LIPID PROFILE (02/20/2025 4:46 AM CDT) Cholesterol 116 <200 mg/dL 02/20/2025 5:22 AM CDT [facility] Triglycerides 188(H) <150 mg/dL 02/20/2025 5:22 AM CDT [facility] HDL Cholesterol 11(L) >40 mg/dL 5:22 AM CDT [facility] Chol HDL Ratio 10.5(H) 1.0 - 6.0 02/20/2025 5:22 AM T [facility] LDL Calculated 67 65 - 130 mg/dL 02/20/2025 5:22 AM T [facility] VLDL Calculated 38(H) <=30 mg/dL 5:22 AM T [facility] Blood BLOOD SPECIMEN / Unknown Lab Venipuncture / Unknown 02/20/2025 4:46 AM CDT 02/20/2025 4:59 AM CDT Narrative [facility] - 02/20/2025 5:22 AM CDT [...] DO LAB - CHEMISTRY ORDERABLES Final Result Performing Organization Address City/[facility] Co de Phone Number [facility] [address] * HIV-1 HIV-2 ANTIBODY + HIV P24 AG PANEL (03/25/2022 4:32 AM CDT) Pathologist [facility] HIV1/2 Ab + P24 Ag NON-REACTI VE/NEGATIV E NON-REACTI VE/NEGATIV E 03/25/2022 5:46 AM CDT [facility] Blood BLOOD SPECIMEN / Unknown Lab Venipuncture / Unknown 03/25/2022 4:32 AM CDT 03/25/2022 5:07 AM CDT Kam Amato III, MD LAB - CHEMISTRY ORDERABLES Final Result Performing Organization Address [facility] de Phone Number [facility] [address] from Last 3 Months or Most Recently Relevant to Health Maintenance Additional Health Concerns Infection Onset Date Last Indicated ESBL GNR Comment:Urine 02/18/25; 02/18/2025 02/18/2025 Insurance [facility] [place] [facility] Advance Directives Documents on File Type Date Recorded 

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
[2025-07-03 17:24] LABS: Hematocrit 39.0 % (37.0-47.0); Hemoglobin 13.4 g/dL (12.0-15.0); Immature Granulocyte Percent A 0.4 % (0-0.5); Lymphocytes Absolute Auto 2.00 K/mm3 (0.9-3.2); Mean Corpuscular HGB Conc 34.4 g/dl (32-36); Mean Corpuscular Hemoglobin 29.3 pg (26-34); Mean Corpuscular Volume 85.2 fl (80-100); Nucleated Red Blood Cells Absolute Auto 0.000 K/mm3 (0.0-0.012); Nucleated Red Blood Cells Perc 0.0 % (0.0-0.2); Platelet Count Result 184 k/mm3 (150-375); Red Blood Count 4.58 M/mm3 (4.2-5.4); White Blood Count 11.3 K/mm3 (4.5-10.0)
[2025-07-03 17:39] LABS: Add Urine Microscopic? YES; Appearance Urine Turbid (Clear); Glucose Urine UA Negative (Negative); Leukocyte Esterase Ur 2+ LEU/UL (Negative); Nitrate Urine Positive (Negative); Non Pathogenic Casts >20; Specific Grav Ur 1.023 (1.001-1.035)
[2025-07-03 17:46] LABS: Alanine Aminotransferase 21 U/L (6-35); Albumin Level 4.6 g/dL (3.5-5.1); Alkaline Phosphatase 94 U/L (38-126); Anion Gap 15 mmol/L (4-12); Aspartate Amino Transferase 33 U/L (14-36); Bilirubin,Total 1.2 mg/dL (0.2-1.3); Blood Urea Nitrogen 10 mg/dL (7-17); Calcium 9.1 mg/dL (8.4-10.2); Carbon Dioxide 22 mmol/L (22-30); Chloride 96 mmol/L (98-107); Estimated CRCL calculation 43 ml/min; Estimated Glomerular Filt Rate 54; Glucose 96 mg/dL (65-110); Potassium 3.2 mmol/L (3.4-5.0); Sodium 133 mmol/L (137-145); Total Protein 8.5 g/dL (6.3-8.2)
[2025-07-03] MEDS: LACTATED RINGERS 1,000 ML 999 ML IV CONT (20:10)
[2025-07-03 20:15] LABS: CRP 19.6 mg/dL (<1.0)
[2025-07-03] MEDS: MECLIZINE HCL 25 MG TABLET PO (20:29)
[2025-07-03] MEDS: diazePAM INJ (*CRX) 10 MG/2 ML SYRINGE 2.5 MG IV PUSH (20:29)
[2025-07-03] MEDS: MORPHINE SULFATE (*CRX) 4 MG/ML INJ 2 MG IV PUSH ×2 (20:29→22:01)
[2025-07-03] MEDS: cefTRIAXone 1 GM in SODIUM CHLORIDE 0.9% IV 50 ML 100 ML IVPB (20:29)
[2025-07-03 20:32] LABS: Creatine Kinase 156 U/L (30-135)
--- NOTE | 2025-07-03 21:41 | PC.NURSE ---
PATIENT ARRIVED ON 3 [facility] AT 2140
--- NOTE | 2025-07-03 22:08 | ADMGEN ---
This patient, Ana Malone, was admitted to 3 [facility] Surg Room 304-02. Patient/family oriented to hospital policies and general routines including ID bracelet, bed and alarms, visiting hours, pain management, procedures, bathroom and other care routines, personal items, smoking policy, room service/diet, and visiting hours. Information on how to activate the Rapid Response Team has been discussed. Patient/Family are encouraged to report perceived risks to care and to ask questions if they do not understand what they are told or what they should do.
[2025-07-03] MEDS: NICOTINE (*PBKC) 7 MG PATCH 1 PATCH TRANSDERM (22:42)
[2025-07-04] VITALS (12 sets, daily range): BP systolic 90–135; BP diastolic 58–71; PULSE 60–105; RESP 18–28; TEMP 35.7–38.3; O2SAT 98–100; BMI 29.3
[2025-07-04] MEDS: MORPHINE SULFATE (*CRX) 4 MG/ML INJ 2 MG IV PUSH ×3 (00:42→09:19)
[2025-07-04] MEDS: PRAZOSIN HCL 1 MG CAPSULE PO (02:45)
[2025-07-04] MEDS: LURASIDONE HCL 40 MG TABLET 60 MG PO ×2 (02:45→21:58)
[2025-07-04] MEDS: ONDANSETRON INJ 4 MG/2 ML VIAL IV PUSH (03:38)
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
[2025-07-04] MEDS: ACETAMINOPHEN 325 MG TABLET 650 MG PO ×2 (05:58→18:30)
[2025-07-04] MEDS: TIZANIDINE HCL 2 MG TABLET PO ×2 (05:58→18:33)
[2025-07-04 07:03] LABS: Hematocrit 30.6 % (37.0-47.0); Hemoglobin 10.4 g/dL (12.0-15.0); Immature Granulocyte Percent A 0.4 % (0-0.5); Lymphocytes Absolute Auto 1.42 K/mm3 (0.9-3.2); Mean Corpuscular HGB Conc 34.0 g/dl (32-36); Mean Corpuscular Hemoglobin 28.8 pg (26-34); Mean Corpuscular Volume 84.8 fl (80-100); Nucleated Red Blood Cells Absolute Auto 0.000 K/mm3 (0.0-0.012); Nucleated Red Blood Cells Perc 0.0 % (0.0-0.2); Platelet Count Result 160 k/mm3 (150-375); Red Blood Count 3.61 M/mm3 (4.2-5.4); White Blood Count 9.7 K/mm3 (4.5-10.0)
[2025-07-04 07:28] LABS: Anion Gap 7 mmol/L (4-12); Blood Urea Nitrogen 9 mg/dL (7-17); Calcium 8.4 mg/dL (8.4-10.2); Carbon Dioxide 25 mmol/L (22-30); Chloride 96 mmol/L (98-107); Estimated CRCL calculation 69 ml/min; Estimated Glomerular Filt Rate > 60; Glucose 106 mg/dL (65-110); Potassium 3.1 mmol/L (3.4-5.0); Sodium 128 mmol/L (137-145)
[2025-07-04 07:47] LABS: SARS-CoV-2 RNA PCR Negative (Negative)
--- NOTE | 2025-07-04 08:03 | P.PNIM_ITS ---
Progress Note: A&P Assessment and Plan (1) Sepsis: Code(s): A41.9 - Sepsis, unspecified organism Status: Acute Assessment and Plan: - with T max 101, tachycardia present on admission - WBC 11.3 - LA WNL - received 1 L IVF bolus - likely secondary to UTI, management as below - follow-up blood cultures, urine culture (2) UTI (urinary tract infection): Code(s): N39.0 - Urinary tract infection, site not specified Status: Acute Assessment and Plan: - UA with 3+ blood, positive nitrates, 2+ LE, >100 WBC. Many squamous cells - febrile as above. Otherwise asymptomatic. - continue IV Rocephin - await urine culture (3) Blurred vision: Code(s): H53.8 - Other visual disturbances Status: Acute Assessment and Plan: -CT head negative. - no focal neuro deficits - follow-up MRI brain, carotid dopplers -neuro checks every 4 hours. - consider neurology consult (4) Bipolar disorder: Code(s): F31.9 - Bipolar disorder, unspecified Status: Acute Assessment and Plan: -continue with Latuda (5) Generalized anxiety disorder: Code(s): F41.1 - Generalized anxiety disorder Status: Acute Assessment and Plan: -continue with hydroxyzine (6) Acute on chronic back pain: Code(s): M54.9 - Dorsalgia, unspecified; G89.29 - Other chronic pain Status: Acute Assessment and Plan: -reviewed results of MRI obtained 02/2025 which only showed mild degenerative disc disease of L5-S1, no spinal stenosis, no disc herniation - no red flag signs -continue with tizanidine, gabapentin. Avoid narcotics. - PT/OT (7) Asthma: Code(s): J45.909 - Unspecified asthma, uncomplicated Status: Acute Assessment and Plan: - no signs of acute exacerbation -continue with home inhalers (8) Tobacco abuse: Code(s): Z72.0 - Tobacco use Status: Acute Assessment and Plan: -smoking cessation has been strongly encouraged - continue nicotine patch Subjective Date/time seen: 07/04/25 08:03 Interval history: Patient seen and examined. States she has been issues for month with balance, ambulating and back pain. Had an MRI in February that only showed mild degenerative disc disease of the lumbar spine. Review of Systems Review of Systems: All systems reviewed & are unremarkable except as noted in HPI and below Exam Narrative: General: NAD Eyes: EOMI ENT: neck supple Cardiovascular: Regular rate and rhythm Respiratory: Clear to auscultation, respirations even and unlabored on RA Gastrointestinal: Soft, non tender Genitourinary: no suprapubic tenderness Musculoskeletal: No edema, mild tenderness to palpation to the lumbar spine Skin: warm, dry Neuro: Alert and oriented x4. Cranial nerves II-XII intact. Face symmetric. Speech clear. Strength 4/5 in BUEs/BLEs. Sensation to light touch intact face, BUE/BLEs. No dysmetria BUE/BLEs. Psych: Mood appropriate Objective Data Vital Signs Vital Signs: Vital Signs - 24 hr 07/03/25 14:09 07/03/25 14:11 07/03/25 18:09 Temperature 98.6 F Pulse Rate 104 H 104 H Respiratory Rate 18 18 Blood Pressure 103/84 103/84 Pulse Oximetry 98 98 98 Oxygen Delivery Room Air 07/03/25 21:44 07/03/25 22:15 07/03/25 22:19 Temperature 99.2 F Pulse Rate 94 89 94 Respiratory Rate 18 18 Blood Pressure 102/57 L Pulse Oximetry 100 100 Oxygen Delivery Room Air 07/03/25 22:30 07/04/25 00:00 07/04/25 04:00 Temperature Pulse Rate 84 105 H Respiratory Rate Blood Pressure Pulse Oximetry 100 Oxygen Delivery Room Air 07/04/25 04:49 07/04/25 05:58 07/04/25 06:43 Temperature 101 F H 101 F H 96.3 F L Pulse Rate 104 H Respiratory Rate 18 Blood Pressure 122/62 Pulse Oximetry 100 Oxygen Delivery Intake/Output Intake/Output: Intake & Output 07/01/25 07/02/25 07/03/25 07/04/25 23:59 23:59 23:59 23:59 Intake Total 1050 390 Balance 1050 390 Meds/Results Medications: Active Medications Generic Name Dose Route Start Last Admin Trade Name Freq PRN Reason Stop Dose Admin Acetaminophen 650 mg 07/04/25 04:19 07/04/25 05:58 Acetaminophen 325 Mg Tablet PO 650 mg Q4H PRN Administration Mild Pain (1-3) or Fever Albuterol 2.5 mg 07/04/25 05:47 Albuterol Sulfate Neb 2.5 Mg/3 Ml Inh INHALATION Q4H PRN Shortness Of Breath Or Wheezing Ferrous Sulfate 325 mg 07/04/25 09:00 Ferrous Sulfate 325 Mg Tablet BY MOUTH DAILY [facility] Folic Acid 1 mg 07/04/25 09:00 Folic Acid 1 Mg Tablet PO DAILY [facility] Gabapentin 400 mg 07/04/25 09:00 Gabapentin 400 Mg Capsule PO TID [facility] Hydroxyzine HCl 25 mg 07/04/25 05:47 Hydroxyzine Hcl 25 Mg Tablet PO QID PRN Nausea And Vomiting Hydroxyzine Pamoate 25 mg 07/04/25 03:15 07/04/25 02:45 Hydroxyzine Pamoate 25 Mg Capsule PO 25 mg TID PRN Administration Anxiety Ceftriaxone Sodium 1 gm/ 50 mls @ 100 mls/hr 07/04/25 21:00 Sodium Chloride IVPB Q24H [facility] Lurasidone HCl 60 mg 07/04/25 21:00 Lurasidone Hcl 40 Mg Tablet PO HS [facility] Magnesium Oxide 400 mg 07/04/25 09:00 Magnesium Oxide 400 Mg Tablet PO DAILY [facility] Morphine Sulfate 2 mg 07/03/25 20:21 07/04/25 03:49 Morphine Sulfate (*Crx) 4 Mg/Ml Inj IV PUSH 2 mg Q2H PRN Administration Pain Rated 7-10 Nicotine 1 patch 07/03/25 22:15 07/03/25 22:42 Nicotine (*Pbkc) 7 Mg Patch TRANSDERM 1 patch DAILY [facility] Administration Ondansetron HCl 4 mg 07/03/25 20:21 07/04/25 03:38 Ondansetron Inj 4 Mg/2 Ml Vial IV PUSH 4 mg Q4H PRN Administration Nausea Prazosin HCl 1 mg 07/04/25 21:00 Prazosin Hcl 1 Mg Capsule PO HS [facility] Tizanidine HCl 2 mg 07/04/25 05:47 07/04/25 05:58 Tizanidine Hcl 2 Mg Tablet PO 2 mg QID PRN Administration Muscle Spasticity Trazodone HCl 100 mg 07/04/25 05:47 Trazodone Hcl 50 Mg Tablet PO HS PRN Insomnia Radiology Results: ITS Impressions Head CT 07/03/25 17:53 Impression: 1.No acute intracranial abnormality. Cervical Spine CT 07/03/25 17:54 Impression: No acute abnormality. Lumbar Spine CT 07/03/25 17:55 Impression: No acute abnormality. Labs Labs: Laboratory Results - last 24 hr 07/03/25 07/04/25 07/04/25 17:17 06:19 06:26 WBC 11.3 H 9.7 RBC 4.58 3.61 L Hgb 13.4 10.4 L D Hct 39.0 30.6 L MCV 85.2 84.8 MCH 29.3 28.8 MCHC 34.4 34.0 RDW 14.2 13.9 Plt Count 184 160 MPV 10.8 H 11.3 H Immature Gran % (Auto) 0.4 0.4 Neut % (Auto) 65.3 71.5 Lymph % (Auto) 17.7 L 14.7 L Andrew % (Auto) 15.7 H 12.8 H Eos % (Auto) 0.4 0.2 Baso % (Auto) 0.5 0.4 Lymph # (Auto) 2.00 1.42 Andrew # (Auto) 1.8 H 1.2 H Eos # (Auto) 0.0 0.0 Baso # (Auto) 0.1 0.0 Abs Immat Gran (auto) 0.04 H 0.04 H Absolute Neuts (auto) 7.4 H 6.9 H Absolute Nucleated RBC 0.000 0.000 Nucleated RBC % 0.0 0.0 ESR 24 H Sodium 133 L 128 L Potassium 3.2 L 3.1 L Chloride 96 L 96 L Carbon Dioxide 22 25 Anion Gap 15 H 7 BUN 10 9 Creatinine 1.10 H 0.79 Estim Creat Clear Calc 43 69 Estimated GFR 54 L > 60 Glucose 96 106 Calcium 9.1 8.4 Total Bilirubin 1.2 AST 33 ALT 21 Alkaline Phosphatase 94 Total Creatine Kinase 156 H C-Reactive Protein 19.6 H Total Protein 8.5 H Albumin 4.6 Urine Color Dark yellow Urine Appearance Turbid H Urine pH 5.5 Ur Specific [place] 1.023 Urine Protein 2+ H Urine Glucose (UA) Negative Urine Ketones 1+ H Ur Blood (Man) 3+ H Urine Nitrate Positive H Urine Bilirubin 2+ H Urine Urobilinogen 2.0 H Leukocyte Esterase Rfl 2+ H Urine RBC 6-10 H Urine WBC >100 H Ur Squamous Epith Cells Many H Urine Bacteria 4+ H Urine Casts >20 Hyaline Casts Present Influenza Type A Ag Cancelled Influenza Type B Ag Cancelled SARS-CoV-2 RNA (RT-PCR) Negative Quality VTE Prophylaxis VTE prophylaxis: mechanical ordered
[2025-07-04] MEDS: NICOTINE (*PBKC) 7 MG PATCH 1 PATCH TRANSDERM (09:23)
[2025-07-04] MEDS: GABAPENTIN 400 MG CAPSULE PO ×3 (09:23→17:38)
[2025-07-04] MEDS: MAGNESIUM OXIDE 400 MG TABLET PO (09:23)
[2025-07-04] MEDS: FOLIC ACID 1 MG TABLET PO (09:23)
[2025-07-04] MEDS: FERROUS SULFATE 325 MG TABLET BY MOUTH (09:23)
--- NOTE | 2025-07-04 11:15 | PC.NURSE ---
During pt. neuro check, I tested the feeling of her lower extremeties and upper extremeties. While touching patients hands and feet, pt. states It feels fuzzy, almost like your hands are falling asleep.
[2025-07-04] MEDS: LIDOCAINE 5% PATCH 1 PATCH TRANSDERM (12:21)
[2025-07-04 15:57] LABS: Hematocrit 32.3 % (37.0-47.0); Hemoglobin 11.0 g/dL (12.0-15.0); Immature Granulocyte Percent A 0.5 % (0-0.5); Lymphocytes Absolute Auto 1.42 K/mm3 (0.9-3.2); Mean Corpuscular HGB Conc 34.1 g/dl (32-36); Mean Corpuscular Hemoglobin 28.9 pg (26-34); Mean Corpuscular Volume 84.8 fl (80-100); Nucleated Red Blood Cells Absolute Auto 0.000 K/mm3 (0.0-0.012); Nucleated Red Blood Cells Perc 0.0 % (0.0-0.2); Platelet Count Result 155 k/mm3 (150-375); Red Blood Count 3.81 M/mm3 (4.2-5.4); White Blood Count 7.4 K/mm3 (4.5-10.0)
[2025-07-04] MEDS: SODIUM CHLORIDE 0.9% IV 1,000 ML 100 ML IV CONT (18:06)
[2025-07-04] MEDS: POTASSIUM CHLORIDE 20 MEQ ER TABLET 40 MEQ PO (18:31)
--- NOTE | 2025-07-04 19:34 | PM.EVENT ---
Event Note Event Note Event Note: head ct reviewed and was read as negative per radiology .
[2025-07-04] MEDS: cefTRIAXone 1 GM in SODIUM CHLORIDE 0.9% IV 50 ML 100 ML IVPB (21:57)
[2025-07-05] VITALS (7 sets, daily range): BP systolic 90–126; BP diastolic 57–85; PULSE 64–79; RESP 12–24; TEMP 36.6–37; O2SAT 98–100
[2025-07-05] MEDS: SODIUM CHLORIDE 0.9% IV 1,000 ML 100 ML IV CONT (05:19)
[2025-07-05 06:30] LABS: Anion Gap 8 mmol/L (4-12); Blood Urea Nitrogen 7 mg/dL (7-17); Calcium 9.0 mg/dL (8.4-10.2); Carbon Dioxide 24 mmol/L (22-30); Chloride 104 mmol/L (98-107); Estimated CRCL calculation 89 ml/min; Estimated Glomerular Filt Rate > 60; Glucose 97 mg/dL (65-110); Magnesium 2.1 mg/dL (1.6-2.3); Potassium 3.8 mmol/L (3.4-5.0); Sodium 136 mmol/L (137-145)
[2025-07-05 06:57] LABS: Thyroid Stimulating Hormone Reflex 3.780 uIU/mL (0.465-4.68)
--- NOTE | 2025-07-05 07:54 | P.PNIM_ITS ---
Progress Note: A&P Assessment and Plan (1) Sepsis: Code(s): A41.9 - Sepsis, unspecified organism Status: Acute Assessment and Plan: - with T max 101, tachycardia present on admission - WBC 11.3 - LA WNL - received 1 L IVF bolus - likely secondary to UTI, management as below - follow-up blood cultures, urine culture (2) UTI (urinary tract infection): Code(s): N39.0 - Urinary tract infection, site not specified Status: Acute Assessment and Plan: - UA with 3+ blood, positive nitrates, 2+ LE, >100 WBC. Many squamous cells - febrile as above. Otherwise asymptomatic. - continue IV Rocephin - await urine culture (3) Bipolar disorder: Code(s): F31.9 - Bipolar disorder, unspecified Status: Acute Assessment and Plan: -continue with Latuda (4) Blurred vision: Code(s): H53.8 - Other visual disturbances Status: Acute Assessment and Plan: -CT head negative. - no focal neuro deficits - follow-up MRI brain, carotid dopplers -neuro checks every 4 hours. - consider neurology consult (5) Generalized anxiety disorder: Code(s): F41.1 - Generalized anxiety disorder Status: Acute Assessment and Plan: -continue with hydroxyzine (6) Acute on chronic back pain: Code(s): M54.9 - Dorsalgia, unspecified; G89.29 - Other chronic pain Status: Acute Assessment and Plan: -reviewed results of MRI obtained 02/2025 which only showed mild degenerative disc disease of L5-S1, no spinal stenosis, no disc herniation - no red flag signs -continue with tizanidine, gabapentin. Avoid narcotics. - PT/OT (7) Asthma: Code(s): J45.909 - Unspecified asthma, uncomplicated Status: Acute Assessment and Plan: - no signs of acute exacerbation -continue with home inhalers (8) Tobacco abuse: Code(s): Z72.0 - Tobacco use Status: Acute Assessment and Plan: -smoking cessation has been strongly encouraged the patient has requested a nicotine patch. Subjective Date/time seen: 07/05/25 07:54 Interval history: Patient seen and examined. States she has been issues for month with balance, ambulating and back pain. Had an MRI in February that only showed mild degenerative disc disease of the lumbar spine. Review of Systems Review of Systems: All systems reviewed & are unremarkable except as noted in HPI and below Exam Narrative: General: NAD Eyes: EOMI ENT: neck supple Cardiovascular: Regular rate and rhythm Respiratory: Clear to auscultation, respirations even and unlabored on RA Gastrointestinal: Soft, non tender Genitourinary: no suprapubic tenderness Musculoskeletal: No edema, mild tenderness to palpation to the lumbar spine Skin: warm, dry Neuro: Alert and oriented x4. Cranial nerves II-XII intact. Face symmetric. Speech clear. Strength 4/5 in BUEs/BLEs. Sensation to light touch intact face, BUE/BLEs. No dysmetria BUE/BLEs. Psych: Mood appropriate Objective Data Vital Signs Vital Signs: Vital Signs - 24 hr 07/04/25 08:00 07/04/25 12:00 07/04/25 13:45 Temperature 96.7 F L Pulse Rate 60 83 Respiratory Rate 18 Blood Pressure 96/60 L Pulse Oximetry 100 Oxygen Delivery Room Air Oxygen Flow Rate 07/04/25 16:00 07/04/25 17:48 07/04/25 18:10 Temperature 98.3 F 98.3 F Pulse Rate 77 82 104 H Respiratory Rate 22 H 22 H Blood Pressure 135/71 135/71 Pulse Oximetry 98 100 Oxygen Delivery Nasal Cannula Oxygen Flow Rate 4 07/04/25 20:00 07/04/25 20:00 07/04/25 22:00 Temperature 96.3 F L Pulse Rate 91 84 91 Respiratory Rate 28 H 28 H Blood Pressure 90/58 L Pulse Oximetry 99 99 Oxygen Delivery Room Air Oxygen Flow Rate 07/05/25 00:00 07/05/25 04:00 07/05/25 06:00 Temperature 98.6 F Pulse Rate 65 64 76 Respiratory Rate 24 H Blood Pressure 90/57 L Pulse Oximetry 100 Oxygen Delivery Oxygen Flow Rate Intake/Output Intake/Output: Intake & Output 07/02/25 07/03/25 07/04/25 07/05/25 23:59 23:59 23:59 23:59 Intake Total 2668 684 8772 Output Total 1500 400 Balance 1050 -1110 1700 Meds/Results Medications: Active Medications Generic Name Dose Route Start Last Admin Trade Name Freq PRN Reason Stop Dose Admin Acetaminophen 650 mg 07/04/25 04:19 07/04/25 18:30 Acetaminophen 325 Mg Tablet PO 650 mg Q4H PRN Administration Mild Pain (1-3) or Fever Albuterol 2.5 mg 07/04/25 05:47 Albuterol Sulfate Neb 2.5 Mg/3 Ml Inh INHALATION Q4H PRN Shortness Of Breath Or Wheezing Ferrous Sulfate 325 mg 07/04/25 09:00 07/04/25 09:23 Ferrous Sulfate 325 Mg Tablet BY MOUTH 325 mg DAILY ILANA Administration Folic Acid 1 mg 07/04/25 09:00 07/04/25 09:23 Folic Acid 1 Mg Tablet PO 1 mg DAILY ILANA Administration Gabapentin 400 mg 07/04/25 09:00 07/04/25 17:38 Gabapentin 400 Mg Capsule PO 400 mg TID ILANA Administration Hydroxyzine HCl 25 mg 07/04/25 05:47 Hydroxyzine Hcl 25 Mg Tablet PO On Hold: 07/04/25 18:11 QID PRN Nausea And Vomiting Hydroxyzine Pamoate 25 mg 07/04/25 03:15 07/04/25 02:45 Hydroxyzine Pamoate 25 Mg Capsule PO 25 mg On Hold: 07/04/25 18:11 TID PRN Administration Anxiety Ceftriaxone Sodium 1 gm/ 50 mls @ 100 mls/hr 07/04/25 21:00 07/04/25 21:57 Sodium Chloride IVPB 100 mls/hr Q24H ILANA Administration Sodium Chloride 1,000 mls @ 100 mls/hr 07/04/25 18:00 07/05/25 05:19 Normal Saline Iv IV CONT 100 mls/hr .Q10H ILANA Administration Lidocaine 1 patch 07/04/25 12:15 07/04/25 12:21 Lidocaine 5% Patch TRANSDERM 1 patch DAILY ILANA Administration Lurasidone HCl 60 mg 07/04/25 21:00 07/04/25 21:58 Lurasidone Hcl 40 Mg Tablet PO 60 mg HS ILANA Administration Magnesium Oxide 400 mg 07/04/25 09:00 07/04/25 09:23 Magnesium Oxide 400 Mg Tablet PO 400 mg DAILY ILANA Administration Nicotine 1 patch 07/03/25 22:15 07/04/25 09:23 Nicotine (*Pbkc) 7 Mg Patch TRANSDERM 1 patch DAILY ILANA Administration Ondansetron HCl 4 mg 07/03/25 20:21 07/04/25 03:38 Ondansetron Inj 4 Mg/2 Ml Vial IV PUSH 4 mg Q4H PRN Administration Nausea Prazosin HCl 1 mg 07/04/25 21:00 07/04/25 21:58 Prazosin Hcl 1 Mg Capsule PO Not Given HS ILANA Tizanidine HCl 2 mg 07/04/25 05:47 07/04/25 18:33 Tizanidine Hcl 2 Mg Tablet PO 2 mg QID PRN Administration Muscle Spasticity Trazodone HCl 100 mg 07/04/25 05:47 Trazodone Hcl 50 Mg Tablet PO HS PRN Insomnia Radiology Results: ITS Impressions Cervical Spine CT 07/03/25 17:54 Impression: No acute abnormality. Lumbar Spine CT 07/03/25 17:55 Impression: No acute abnormality. Carotid Doppler Study 07/04/25 09:52 IMPRESSION: 1. <50% stenosis in the right internal carotid artery. 2. <50% stenosis in the left internal carotid artery. Thyroid Ultrasound 07/04/25 09:54 IMPRESSION: 1. 2.2 cm TI-RADS 2 and 1.4 cm TI-RADS 4 nodules in the right thyroid for which annual follow-up ultrasound would be recommended. Head CT 07/04/25 18:46 IMPRESSION: 1. No acute intracranial process. Labs Labs: Laboratory Results - last 24 hr 07/04/25 07/04/25 07/04/25 08:43 15:52 17:54 WBC 7.4 RBC 3.81 L Hgb 11.0 L Hct 32.3 L MCV 84.8 MCH 28.9 MCHC 34.1 RDW 13.8 Plt Count 155 MPV 11.0 H Immature Gran % (Auto) 0.5 Neut % (Auto) 61.5 Lymph % (Auto) 19.2 Mineral % (Auto) 17.5 H Eos % (Auto) 0.8 Baso % (Auto) 0.5 Lymph # (Auto) 1.42 Mineral # (Auto) 1.3 H Eos # (Auto) 0.1 Baso # (Auto) 0.0 Abs Immat Gran (auto) 0.04 H Absolute Neuts (auto) 4.5 Absolute Nucleated RBC 0.000 Nucleated RBC % 0.0 Sodium Potassium Chloride Carbon Dioxide Anion Gap BUN Creatinine Estim Creat Clear Calc Estimated GFR Glucose POC Capillary Glucose 141 H Lactic Acid 0.9 Calcium Magnesium TSH (Reflex) 07/05/25 05:35 WBC RBC Hgb Hct MCV MCH MCHC RDW Plt Count MPV Immature Gran % (Auto) Neut % (Auto) Lymph % (Auto) Mineral % (Auto) Eos % (Auto) Baso % (Auto) Lymph # (Auto) Mineral # (Auto) Eos # (Auto) Baso # (Auto) Abs Immat Gran (auto) Absolute Neuts (auto) Absolute Nucleated RBC Nucleated RBC % Sodium 136 L Potassium 3.8 Chloride 104 Carbon Dioxide 24 Anion Gap 8 BUN 7 Creatinine 0.60 L Estim Creat Clear Calc 89 Estimated GFR > 60 Glucose 97 POC Capillary Glucose Lactic Acid Calcium 9.0 Magnesium 2.1 TSH (Reflex) 3.780 Quality VTE Prophylaxis VTE prophylaxis: mechanical ordered
[2025-07-05] MEDS: NICOTINE (*PBKC) 7 MG PATCH 1 PATCH TRANSDERM (08:23)
[2025-07-05] MEDS: LIDOCAINE 5% PATCH 1 PATCH TRANSDERM (08:23)
[2025-07-05] MEDS: MAGNESIUM OXIDE 400 MG TABLET PO (08:23)
[2025-07-05] MEDS: FERROUS SULFATE 325 MG TABLET BY MOUTH (08:23)
[2025-07-05] MEDS: GABAPENTIN 400 MG CAPSULE PO ×2 (08:23→14:09)
[2025-07-05] MEDS: FOLIC ACID 1 MG TABLET PO (08:23)
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
--- NOTE | 2025-07-05 15:22 | P.DS_ITS ---
DS: Admitting Diagnosis Discharge Date 07/05/25 Admitting Diagnosis - sepsis - UTI - bipolar disorder - blurred vision - generalized anxiety disorder - involuntary movements DS: Discharge Diagnosis Discharge Diagnosis (1) Sepsis: Code(s): A41.9 - Sepsis, unspecified organism Status: Acute (2) UTI (urinary tract infection): Code(s): N39.0 - Urinary tract infection, site not specified Status: Acute (3) Bipolar disorder: Code(s): F31.9 - Bipolar disorder, unspecified Status: Acute (4) Blurred vision: Code(s): H53.8 - Other visual disturbances Status: Acute (5) Generalized anxiety disorder: Code(s): F41.1 - Generalized anxiety disorder Status: Acute (6) Acute on chronic back pain: Code(s): M54.9 - Dorsalgia, unspecified; G89.29 - Other chronic pain Status: Acute (7) Asthma: Code(s): J45.909 - Unspecified asthma, uncomplicated Status: Acute (8) Tobacco abuse: Code(s): Z72.0 - Tobacco use Status: Acute (9) Involuntary movements: Code(s): R25.9 - Unspecified abnormal involuntary movements Status: Acute DS: Summary Hospital Course Reason for hospitalization: - sepsis - UTI - bipolar disorder - blurred vision - generalized anxiety disorder - involuntary movements Hospital Course: Patient is a 40-year-old female with past medical history of bipolar disorder, back pain who presented to the emergency department with back pain, double vision, abnormal involuntary movements. In ED, white blood cell count 11, sodium 133, potassium 3.2, creatinine 1.1. Urine is 1+ ketones 3+ blood positive nitrates, urine bili 2+, leukocyte esterase 2+, rbc's 6-10, and wbc's greater than 100. Urine bacteria is 4+. CT head no acute process. CT C/L-spine no acute process. Patient was started on IV Rocephin for suspected urinary tract infection. Upon admission, patient was noted to be meeting sepsis criteria with fever and tachycardia. No leukocytosis, lactic acid normal and BP remained overall stable. Patient's fever quickly resolved with starting IV Rocephin for UTI. Patient was transitioned to cefpodoxime to complete a 7 day course. Patient remained afebrile on day of discharge. Will follow urine culture and blood cultures on discharge. Patient's back pain improved with home gabapentin, muscle relaxer and lidocaine patch. Patient had a recent MRI L-spine 02/2025 which I reviewed on her MyChart at bedside that showed mild degenerative disc disease of L5-S1 with no spinal stenosis or disc herniation. PT/OT evaluated and she did well ambulating in the halls and navigating stairs. Patient also complained of several months of issues with abnormal involuntary movements where she ?loses control of her arms and legs. Per patient, she has had a recent MRI brain which was normal. Patient had an episode of this that was witnessed by staff 07/04. During this episode she was noted to have shaking of the arms and legs however patient remained completely alert during the episode. There was no postictal.. There is no bowel/bladder incontinence or tongue bite. Patient reports she has had multiple normal EEGs as an outpatient. 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 Patient does admit to a lot of increased stress in her life and has not seen a psychiatrist in over a year. She is not currently receiving counseling and her psychiatric meds are currently being prescribed by her primary care provider. Neurology did not recommend any anti epileptic medication at this time. Also did not recommend further brain imaging or EEG. Recommended to keep Neurology follow-up as scheduled on Monday. Patient also noted to have hyponatremia with sodium of 128. This improved on day of discharge with IV fluids. Patient was tolerating a regular diet on discharge. Patient also noted incidentally to have a thyroid nodule on imaging. Ultrasound of thyroid showed 2.2 cm TI-RADS 2 and 1.4 cm TI-RADS 4 nodules in the right thyroid for which annual follow-up ultrasound would be recommended. TSH WNL. Patient was already aware of this nodule and will continue to follow up with her primary care provider as an outpatient. Patient was discharged home in stable condition. Status at Discharge Functional status at discharge: independent ambulation Overall status at discharge: patient is back to baseline Time Spent with Patient Time attestation: Total time spent providing and/or coordinating discharge services: Time spent: Greater than 30 minutes Exam Narrative: General: NAD Eyes: EOMI ENT: neck supple Cardiovascular: Regular rate and rhythm Respiratory: Clear to auscultation, respirations even and unlabored on RA Gastrointestinal: Soft, non tender Genitourinary: no suprapubic tenderness Musculoskeletal: No edema, mild tenderness to palpation to the lumbar spine Skin: warm, dry Neuro: Alert and oriented x4. Cranial nerves II-XII intact. Face symmetric. Speech clear. Psych: Mood appropriate DS: Data Data Completed and Pending Completed studies during hospitalization: ITS Impressions Head CT 07/03/25 17:53 Impression: 1.No acute intracranial abnormality. Cervical Spine CT 07/03/25 17:54 Impression: No acute abnormality. Lumbar Spine CT 07/03/25 17:55 Impression: No acute abnormality. Carotid Doppler Study 07/04/25 09:52 IMPRESSION: 1. <50% stenosis in the right internal carotid artery. 2. <50% stenosis in the left internal carotid artery. Thyroid Ultrasound 07/04/25 09:54 IMPRESSION: 1. 2.2 cm TI-RADS 2 and 1.4 cm TI-RADS 4 nodules in the right thyroid for which annual follow-up ultrasound would be recommended. Head CT 07/04/25 18:46 IMPRESSION: 1. No acute intracranial process. Labs on day of discharge: Labs from last 24 hours 07/05/25 07/04/25 07/04/25 05:35 17:54 15:52 WBC 7.4 RBC 3.81 L Hgb 11.0 L Hct 32.3 L MCV 84.8 MCH 28.9 MCHC 34.1 RDW 13.8 Plt Count 155 MPV 11.0 H Immature Gran % (Auto) 0.5 Neut % (Auto) 61.5 Lymph % (Auto) 19.2 [place] % (Auto) 17.5 H Eos % (Auto) 0.8 Baso % (Auto) 0.5 Lymph # (Auto) 1.42 [place] # (Auto) 1.3 H Eos # (Auto) 0.1 Baso # (Auto) 0.0 Abs Immat Gran (auto) 0.04 H Absolute Neuts (auto) 4.5 Absolute Nucleated RBC 0.000 Nucleated RBC % 0.0 Sodium 136 L Potassium 3.8 Chloride 104 Carbon Dioxide 24 Anion Gap 8 BUN 7 Creatinine 0.60 L Estim Creat Clear Calc 89 Estimated GFR > 60 Glucose 97 POC Capillary Glucose 141 H Calcium 9.0 Magnesium 2.1 TSH (Reflex) 3.780 Discharge Plan Discharge Attending physician on discharge: Ankit Bower Consulting providers: Ludin Clayton; Shanna Prieto Discharging Clinician: Shanna Prieto Anticipated Discharge Date/Time: 07/05/25 14:25 Patient Disposition: Home Activity: may shower Diet: as tolerated Discharge Instructions: Care Coordination: Call to schedule an appointment/walk-in clinic during operating hours. FOR[facility], [facility]. Keep your scheduled appointment with neurology on Monday. 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 These episodes look and feel like epileptic seizures, but they are not caused by abnormal electrical activity in the brain. Instead, they are a physical response to psychological stress or emotional difficulties. Leon Points About Your Diagnosis: * PNES is not epilepsy. It is not caused by a problem with your brain?s electrical activity. * PNES is a real and involuntary condition. You are not faking or causing these episodes on purpose. * Many people with PNES have experienced stress, anxiety, depression, or trauma. These factors can contribute to your symptoms. What Happens Next: * Antiepileptic medications:?If you do not have epilepsy, these medicines are not needed and may be stopped. Your doctor will guide you on how to safely discontinue them. * Mental health support:?The most effective treatment is working with a mental health professional, such as a psychologist or psychiatrist. Therapy, especially cognitive behavioral therapy (CBT), can help reduce episodes and improve your quality of life. * Multidisciplinary care:?Your care team may include neurologists, psychiatrists, psychologists, and social workers. This team approach helps address all aspects of your health. What You Can Do: * Attend all scheduled follow-up appointments, including mental health visits. * Learn about stress management and coping strategies. Techniques like relaxa tion exercises, mindfulness, and regular physical activity may help. * Keep a diary of your episodes, noting triggers, duration, and what helps you recover. * Share your diagnosis and care plan with family or close friends so they can support you. When to Seek Help: * If you have new or concerning symptoms, or if you feel unsafe, contact your healthcare provider. * If you feel overwhelmed, anxious, or depressed, reach out to your mental health provider. Additional Information: * PNES can improve with treatment and support. Many people see a reduction in episodes and improvement in their daily lives. * Avoid unnecessary emergency room visits for spells unless you are injured or have new symptoms. If you have questions about your diagnosis or treatment plan, please contact your care team. You are not alone, and help is available. Patient Instructions: Antibiotic Form, Electronic Cigarettes and Your Health (GEN) Patient Language: [place] Islander Stand Alone Forms: General Discharge Information Follow-up/Referrals: Perry,Irving Gonzales MD [Primary Care Provider, Unknown] Discharge Medications: New cefpodoxime 200 mg tablet 200 mg PO BID Qty: 10 0RF Rx Instructions: must administer with a meal/food Continued albuterol sulfate 2.5 mg /3 mL (0.083 %) solution for nebulization 2.5 mg continuous nebulization Q4H PRN (Reason: shortness of breath or wheezing) albuterol sulfate 90 mcg/actuation HFA aerosol inhaler 2 puff INHALATION Q6H PRN (Reason: shortness of breath or wheezing) cyanocobalamin (vitamin B-12) 1,000 mcg tablet 1,000 mcg PO DAILY ergocalciferol (vitamin D2) 1,250 mcg (50,000 unit) capsule 1,250 mcg PO WEEKLY ferrous sulfate 325 mg (65 mg iron) tablet 325 mg PO DAILY folic acid 1 mg tablet 1 mg PO DAILY gabapentin 400 mg capsule 400 mg PO TID hydroxyzine HCl 25 mg tablet 25 mg PO QID PRN (Reason: nausea and vomiting) lurasidone 60 mg tablet 60 mg PO HS magnesium oxide 400 mg (241.3 mg magnesium) tablet 400 mg PO DAILY prazosin 1 mg capsule 1 mg PO HS trazodone 100 mg tablet 100 mg PO HS PRN (Reason: insomnia) tizanidine 4 mg tablet 2 mg PO QID PRN (Reason: muscle spasticity) Date of admission: 07/03/25 20:22 Primary Care Provider: PerryIrving Admitting Provider: Satnam Negro Attending physician on admission: Satnam Negro Condition: Stable
--- NOTE | 2025-07-07 08:06 | PC.NURSE ---
Urine cx shows less than 10,000 bacteria per milliliter of urine.
== END 2025-07-05 15:30 | disposition home or self-care (01) ==
LOC: ANHED 19:02 → ANH3MEDSUR 22:20
PROVIDERS: Nurse Practitioner; Nurse Practitioner Family; Physician Assistant; Admitting Provider Internal Medicine; Emergency Provider Student in an Organized Health Care Education/Training Program; PCP Internal Medicine; Visit Provider Internal Medicine
DX: A41.9 Sepsis, unspecified organism (principal); N39.0 Urinary tract infection, site not specified; R25.9 Unspecified abnormal involuntary movements; H53.8 Other visual disturbances; F31.9 Bipolar disorder, unspecified; F41.1 Generalized anxiety disorder; E04.2 Nontoxic multinodular goiter; M54.9 Dorsalgia, unspecified; M48.02 Spinal stenosis, cervical region; G89.29 Other chronic pain; J45.909 Unspecified asthma, uncomplicated; F43.10 Post-traumatic stress disorder, unspecified; F12.90 Cannabis use, unspecified, uncomplicated; F17.210 Nicotine dependence, cigarettes, uncomplicated; Z20.822 Contact with and (suspected) exposure to COVID-19; Z90.49 Acquired absence of other specified parts of digestive tract; Z79.82 Long term (current) use of aspirin; Z79.02 Long term (current) use of antithrombotics/antiplatelets; Z80.9 Family history of malignant neoplasm, unspecified
CPT/HCPCS: 36415; 70450; 72125; 72131; 76536; 80048; 80053; 81001; 82550; 82948; 83605; 83735; 84443; 85025; 85652; 86140; 87086; 87186; 87635; 93880; 96360; 96361; 96365; 96374; 96375; 96376; 97116; 97161; 97165; 99285; A9270; G0378; J0696; J2270; J2405; J3360; J7030; J7120

== ENCOUNTER 2025-08-21 11:46 | Emergency (ER) | payer OTHER, SELFPAY ==
[2025-08-21 11:48] VITALS: BP 120/96; PULSE 73; RESP 16; TEMP 36.6; O2SAT 100
--- NOTE | 2025-08-21 12:55 | ED.FEMALEGU ---
HPI - Female Genitourinary General Chief complaint: Extremity Problem,Nontraumatic <Blanquita Nielsen PA-C - Last Filed: 08/21/25 17:47> Stated complaint: knot on left leg <Blanquita Nielsen PA-C - Last Filed: 08/21/25 17:47> Time Seen by Provider: 08/21/25 12:55 <Blanquita Nielsen PA-C - Last Filed: 08/21/25 17:47> Focused HPI: This is a 40 year old female that presents to the ER for an area of swelling to the left side of her groin. Reports this has been present for years. But over the last couple of days the area has become more swollen, painful, red. The swelling is now extending to her labia majora. Denies fever, drainage. GENERAL: Well-appearing, well-nourished, and in no acute distress. HEAD: Normocephalic, atraumatic. CHEST: No respiratory distress. HEART: Regular rate NEURO: ?Alert and oriented x3. Patient screened in triage and initial orders placed.? ?Additional care and disposition to be based upon?diagnostic testing and treatment. <Blanquita Nielsen PA-C - Last Filed: 08/21/25 17:47> History of Present Illness HPI Narrative: Agree with HPI. <Cj Mitchell DO - Last Filed: 08/21/25 17:21> Related Data Home medications: Home Medications ?Medication ?Instructions ?Recorded ?Confirmed ?Last Taken ?Type albuterol sulfate 2.5 mg/3 mL 2.5 mg continuous nebulization Q4H 07/03/25 07/03/25 Unknown History (0.083 %) solution for nebulization PRN shortness of breath or wheezing albuterol sulfate 90 mcg/actuation 2 puff inhalation Q6H PRN 07/03/25 07/03/25 Unknown History aerosol inhaler shortness of breath or wheezing cyanocobalamin (vitamin B-12) 1,000 mcg PO DAILY 07/03/25 07/03/25 Unknown History 1,000 mcg tablet ergocalciferol (vitamin D2) 1,250 1,250 mcg PO WEEKLY 07/03/25 07/03/25 06/26/25 History mcg (50,000 unit) capsule ferrous sulfate 325 mg (65 mg 325 mg PO DAILY 07/03/25 07/03/25 Unknown History iron) tablet folic acid 1 mg tablet 1 mg PO DAILY 07/03/25 07/03/25 Unknown History gabapentin 400 mg capsule 400 mg PO TID 07/03/25 07/03/25 Unknown History hydroxyzine HCl 25 mg tablet 25 mg PO QID PRN nausea and 07/03/25 07/03/25 Unknown History vomiting lurasidone 60 mg tablet 60 mg PO HS 07/03/25 07/03/25 Unknown History magnesium oxide 400 mg (241.3 mg 400 mg PO DAILY 07/03/25 07/03/25 Unknown History magnesium) tablet prazosin 1 mg capsule 1 mg PO HS 07/03/25 07/03/25 Unknown History tizanidine 4 mg tablet 2 mg PO QID PRN muscle spasticity 07/03/25 07/03/25 Unknown History trazodone 100 mg tablet 100 mg PO HS PRN insomnia 07/03/25 07/03/25 Unknown History <Blanquita Nielsen PA-C - Last Filed: 08/21/25 17:47> Allergies/Adverse reactions: Allergies Allergy/AdvReac Type Severity Reaction Status Date / Time ibuprofen Allergy Severe Hives / Verified 08/21/25 11:47 Red Face acetaminophen Allergy Unknown Anxiety Verified 08/21/25 11:47 hydrocodone Allergy Unknown Anxiety Verified 08/21/25 11:47 tramadol Allergy Unknown Anxiety Verified 08/21/25 11:47 <Blanquita Nielsen PA-C - Last Filed: 08/21/25 17:47> Review of Systems Review of Systems: All systems reviewed & are unremarkable except as noted in HPI and below <Cj Mitchell DO - Last Filed: 08/21/25 17:21> PMFSH Past Medical History Medical History: Medical History UTI (urinary tract infection) Asthma PTSD (post-traumatic stress disorder) Generalized anxiety disorder Bipolar disorder Facet hypertrophy of lumbar region <Blanquita Nielsen PA-C - Last Filed: 08/21/25 17:47> Surgical History Surgical History: Surgical History H/O section X3 H/O tubal ligation Hx of cholecystectomy History of ERCP <Blanquita Nielsen PA-C - Last Filed: 08/21/25 17:47> Family History Family History: Family History Grandparent Cancer Grandparent Cancer <Blanquita Nielsen PA-C - Last Filed: 08/21/25 17:47> Social History Social History: Social History Social History: Recently moved to the area from [place] for family issues She is but . She has 4 children. She has applied for disability. Code status: Full code Smoking packs per day: 0.5 Smoking cigarettes per day: 10.0 Smoking status: Former smoker Tobacco type: cigarettes and e-cigarettes/vaping Alcohol intake: never Alcohol use details: denies Substance use: current Substance use type: marijuana Lack of Transportation: No Lack of Food: Never True Current Housing: I Have Housing Concerned About Future Housing: No Difficulty Paying Gas/Electric Bills: No Difficulty Paying for Meds: No Currently Unemployed: No Education: Associate Degree Difficulty w/ Childcare or Family Care: No Spiritual care concerns: No <Blanquita Nielsen PA-C - Last Filed: 08/21/25 17:47> Exam Narrative: APPEARANCE: No acute distress, nontoxic, resting in bed HEENT: Normocephalic, atraumatic, OMM RESPIRATORY: No respiratory distress CARDIOVASCULAR: Appears well perfused ABDOMINAL: Nondistended : [employer] present. There is a 1 x 2 cm area of erythema lateral to the left labia with a small 5x5mm area of fluctuance to this area, very ttp. MUSCULOSKELETAl: Moves all extremities. No obvious deformities NEURO: Awake and alert. SKIN:: Warm, dry. No rashes lesions or abrasions PSYCHIATRIC: Normal affect/mood, <Cj Mitchell DO - Last Filed: 08/21/25 17:21> Course Vital Signs Vital signs: Vital Signs Temperature 97.8 F 08/21/25 11:48 Pulse Rate 73 08/21/25 11:48 Respiratory Rate 16 08/21/25 11:48 Blood Pressure 120/96 H 08/21/25 11:48 Pulse Oximetry 100 08/21/25 11:48 Temperature 98.2 F 08/21/25 15:23 Pulse Rate 73 08/21/25 15:23 Respiratory Rate 18 08/21/25 15:23 Blood Pressure 130/89 08/21/25 15:23 Pulse Oximetry 100 08/21/25 15:23 <Blanquita Nielsen PA-C - Last Filed: 08/21/25 17:47> Vital Signs Temperature 97.8 F 08/21/25 11:48 Pulse Rate 73 08/21/25 11:48 Respiratory Rate 16 08/21/25 11:48 Blood Pressure 120/96 H 08/21/25 11:48 Pulse Oximetry 100 08/21/25 11:48 Temperature 98.2 F 08/21/25 15:23 Pulse Rate 73 08/21/25 15:23 Respiratory Rate 18 08/21/25 15:23 Blood Pressure 130/89 08/21/25 15:23 Pulse Oximetry 100 08/21/25 15:23 <Cj Mitchell DO - Last Filed: 08/21/25 17:21> Procedures Abscess I/D lower extremity: Date of Incision: 08/21/25 <Cj Mitchell DO - Last Filed: 08/21/25 17:21> Time of Incision: 14:45 <Cj Mitchell DO - Last Filed: 08/21/25 17:21> Side (if applicable): left <Cj Mitchell DO - Last Filed: 08/21/25 17:21> Local Anesthetic: lidocaine 1% and with epi <Cj Mitchell DO - Last Filed: 08/21/25 17:21> Amount of anesthesia used (mL): 3 <Cj Mitchell DO - Last Filed: 08/21/25 17:21> Technique: incised with #11 blade <Cj Mitchell DO - Last Filed: 08/21/25 17:21> Amount of fluid expressed (mL): 5 <Cj Mitchell DO - Last Filed: 08/21/25 17:21> Irrigation: No <Cj Mitchell DO - Last Filed: 08/21/25 17:21> Packing used?: none <Cj Mitchell DO - Last Filed: 08/21/25 17:21> I&D Results: Pus <Cj DO Paula - Last Filed: 08/21/25 17:21> MDM MDM Narrative Medical decision making narrative: 40-year-old female Presenting for abscess. On initial evaluation patient was in no acute distress afebrile, hemodynamic stable. Differentials include but are not limited to: Cellulitis, abscess, hematoma Notable exam findings: Abscess noted to the left groin lateral to the left labia significant tenderness palpation small fluctuance Abscess was drained as above, patient tolerated procedure well. Fluid was sent for culture. Patient will be started on she was PCP next week evaluation. Patient was agreeable to this plan. Given strict return precautions. <Cj DO Paula - Last Filed: 08/21/25 17:21> Differential Diagnosis Differential Diagnosis: Cellulitis, abscess, hematoma <Cj DO Paula - Last Filed: 08/21/25 17:21> Lab Data Labs: Lab Results 08/21/25 08/21/25 Range/Units 13:57 14:09 Urine Color Yellow (Yellow) Urine Appearance Clear (Clear) Urine pH 6.0 (5.0-9.0) Ur Specific [place] 1.005 (1.001-1.035) Urine Protein Negative (Negative) mg/dL Urine Glucose (UA) Negative (Negative) mg/dL Urine Ketones Negative (Negative) mg/dL Ur Blood (Man) Negative (Negative) Urine Nitrate Negative (Negative) Urine Bilirubin Negative (Negative) Urine Urobilinogen 0.2 (<2.0) mg/dL Leukocyte Esterase Rfl Negative (Negative) JOSE/UL POC Urine HCG, Qual Negative (Negative) <Blanquita Nielsen PA-C - Last Filed: 08/21/25 17:47> Lab Results 08/21/25 08/21/25 Range/Units 13:57 14:09 Urine Color Yellow (Yellow) Urine Appearance Clear (Clear) Urine pH 6.0 (5.0-9.0) Ur Specific [place] 1.005 (1.001-1.035) Urine Protein Negative (Negative) mg/dL Urine Glucose (UA) Negative (Negative) mg/dL Urine Ketones Negative (Negative) mg/dL Ur Blood (Man) Negative (Negative) Urine Nitrate Negative (Negative) Urine Bilirubin Negative (Negative) Urine Urobilinogen 0.2 (<2.0) mg/dL Leukocyte Esterase Rfl Negative (Negative) JOSE/UL POC Urine HCG, Qual Negative (Negative) <Cj Mitchell DO - Last Filed: 08/21/25 17:21> Critical Care Time Critical Care Time Critical Care Time: No <Blanquita Nielsen PA-C - Last Filed: 08/21/25 17:47> Discharge Plan Discharge Clinical Impression: Abscess <ALEXANDRO [place] Last Filed: 08/21/25 17:47> Patient Disposition: Home <ALEXANDRO [place] Last Filed: 08/21/25 17:47> Condition: Stable <ALEXANDRO [place] Last Filed: 08/21/25 17:47> Instructions: Antibiotic Form, Abscess (ED) <ALEXANDRO [place] Last Filed: 08/21/25 17:47> Additional Instructions: Take Bactrim as prescribed. Follow-up with her PCP in the next week for re-evaluation. Return to the ED for any new or worsening symptoms. <Blanquita Nielsen PA-C - Last Filed: 08/21/25 17:47> Patient Language: [place]ian <ALEXANDRO [place] Last Filed: 08/21/25 17:47> Prescriptions: New sulfamethoxazole-trimethoprim [Bactrim DS] 800-160 mg tablet 1 tablet PO Q12H 7 Days Qty: 14 0RF oxycodone 5 mg tablet 2.5 mg PO Q4H PRN (Reason: pain, severe) Qty: 6 0RF No Action albuterol sulfate 2.5 mg /3 mL (0.083 %) solution for nebulization 2.5 mg continuous nebulization Q4H PRN (Reason: shortness of breath or wheezing) albuterol sulfate 90 mcg/actuation HFA aerosol inhaler 2 puff INHALATION Q6H PRN (Reason: shortness of breath or wheezing) cyanocobalamin (vitamin B-12) 1,000 mcg tablet 1,000 mcg PO DAILY ergocalciferol (vitamin D2) 1,250 mcg (50,000 unit) capsule 1,250 mcg PO WEEKLY ferrous sulfate 325 mg (65 mg iron) tablet 325 mg PO DAILY folic acid 1 mg tablet 1 mg PO DAILY gabapentin 400 mg capsule 400 mg PO TID hydroxyzine HCl 25 mg tablet 25 mg PO QID PRN (Reason: nausea and vomiting) lurasidone 60 mg tablet 60 mg PO HS magnesium oxide 400 mg (241.3 mg magnesium) tablet 400 mg PO DAILY prazosin 1 mg capsule 1 mg PO HS trazodone 100 mg tablet 100 mg PO HS PRN (Reason: insomnia) tizanidine 4 mg tablet 2 mg PO QID PRN (Reason: muscle spasticity) cefpodoxime 200 mg tablet 200 mg PO BID Qty: 10 0RF Rx Instructions: must administer with a meal/food <Blanquita Nielsen PA-C - Last Filed: 08/21/25 17:47> Follow-up/Referrals: Perry,Irving Gonzales MD [Primary Care Provider, Unknown] <Blanquita Nielsen PA-C - Last Filed: 08/21/25 17:47>
--- OUTSIDE RECORDS SUMMARY | 2025-08-21 12:56 | XMS_ITS | Clinical Summary ---
Author Organization [facility] [employer] Address [address] [place] [address] Care Team Providers Care Director Diversity Name Role Phone Katia Grubbs PA-C Primary Care Provider [phone] Iraida Carrillo APRN-PORT DRIER Unavailable [phone] Source Comments [facility] [employer],non-owned Affiliates and Associated Physician Practices is amultiple site organization consisting of ambulatory clinics and hospital sitesin [place], [place], [place] and [place]. This disclosure is being madepursuant to the Care Everywhere program and may not contain all information available regarding this patient. Last updated 18.[facility] [employer] Allergies Active Allergy Reactions Criticality Noted Date [...] Grams (4000 mg) / 24 hours. Active Spacer/Aero-Ho lding Chambers RIK Use 1 device once daily 1 device 3 08/13/20 24 Active glecaprevir-pi brentasvir (Mavyret) 100-40 MG tablet Take 3 (three) tablets by mouth daily with food 84 tablet 1 09/19/19 25 Active Additional Information Patient not taking.Reported on 08/04/2025 zonisamide (Zonegran) 100 MG capsule Take 1 (one) capsule by mouth once daily for 30 days 30 capsule 02/26/20 25 Active Additional Information Patient not taking.Reported on 08/04/2025 zonisamide (Zonegran) 100 MG capsule Take 2 (two) capsules by mouth at bedtime for 30 days 60 capsule 02/25/20 25 Active Additional Information Patient not taking.Reported on 08/04/2025 albuterol (Proventil;Nikolay tolin) (2.5 MG/3ML) 0.083% nebulizer solution USE ONE vial in NEBULIZER EVERY 4 HOURS NEEDED FOR SHORTNESS OF BREATH 75 mL 3 05/07/20 25 Active budesonide-for moterol (Symbicort) 160-4.5 MCG/ACT inhaler Inhale 2 (two) puffs by mouth 2 times daily 10.2 g 3 08/04/20 25 Active albuterol HFA (Proventil; Ventolin; Proair) 108 (90 Base) MCG/ACT inhaler Inhale 2 (two) puffs by mouth every 6 hours as needed 6.7 g 2 08/04/20 25 Active folic acid (Folvite) 1 MG tablet Take 1 (one) tablet by mouth once daily 30 tablet 3 08/04/20 25 Active gabapentin (Neurontin) 400 MG capsule Take 1 (one) capsule by mouth 3 times daily 90 capsule 08/04/20 25 Active tiZANidine (Zanaflex) 4 MG tablet Take 1 (one) tablet by mouth every 6 hours as needed 30 tablet 08/04/20 25 Active lurasidone (Latuda) 60 MG tablet Take 1 (one) tablet by mouth daily with food 30 tablet 08/04/20 25 Active prazosin (Minipress) 1 MG capsule Take 1 (one) capsule by mouth at bedtime 30 capsule 08/04/20 25 Active hydrOXYzine HCl (Atarax) 25 MG tabletIndicati ons:Anxiety Take 1 (one) tablet by mouth 2 times daily as needed anxiety Reasons: Feeling Anxious 60 tablet 08/04/20 25 Active traZODone (Desyrel) 100 MG tablet Take 1 (one) tablet by mouth at bedtime 30 tablet 3 01/22/20 25 025 Discontin ued(List Clean-Up) hydrOXYzine HCl (Atarax) 25 MG tablet Take 1 (one) tablet by mouth 4 times daily as needed anxiety 02/27/20 25 025 Discontin ued(Reord er) methocarbamol (Robaxin) 500 MG tablet Take 1 (one) tablet by mouth every 6 hours as needed for Muscle Spasms 30 tablet 04/15/20 25 025 Discontin ued(List Clean-Up) budesonide-for moterol (Symbicort) 160-4.5 MCG/ACT inhaler INHALE 2 PUFFS BY MOUTH TWICE DAILY 10.2 g 3 04/22/20 25 025 Discontin ued(Reord er) nicotine (Nicoderm CQ) 21 MG/24HR patchIndicatio ns:Nicotine abuse Apply 1 (one) patch to skin once daily 30 patch 04/22/20 25 025 Discontin ued(List Clean-Up) gabapentin (Neurontin) 400 MG capsule Take 1 (one) capsule by mouth at bedtime 30 capsule 1 05/06/20 25 025 Discontin ued(Reord er) vitamin D, ergocalciferol , (Drisdol) 1.25 MG (33353 UT) capsule TAKE 1 CAPSULE BY MOUTH EVERY 7 DAYS 4 capsule 1 06/30/20 25 025 Discontin ued(List Clean-Up) folic acid (Folvite) 1 MG tablet TAKE 1 TABLET BY MOUTH EVERY DAY 30 tablet 1 07/01/20 25 025 Discontin ued(Reord er) lurasidone (Latuda) 60 MG tablet TAKE 1 TABLET BY MOUTH EVERY DAY WITH FOOD 30 tablet 07/01/20 25 025 Discontin ued(Reord er) prazosin (Minipress) 1 MG capsule TAKE 1 CAPSULE BY MOUTH EVERYDAY AT BEDTIME 30 capsule 07/01/20 25 025 Discontin ued(Reord er) albuterol HFA (Proventil; Ventolin; Proair) 108 (90 Base) MCG/ACT inhaler INHALE 2 PUFFS BY MOUTH EVERY 6 HOURS NEEDED 6.7 g 2 07/18/20 25 025 Discontin ued(Reord er) tiZANidine (Zanaflex) 4 MG tablet Take 1 (one) tablet by mouth every 6 hours as needed 07/30/20 25 025 Discontin ued(Reord er) Active Problems Problem Noted Date Diagnosed Date [...] Gastrointestinal hemorrhage 02/23/2019 PVC (premature ventricular contraction) 08/29/20 18 Obsessive-compulsive disorder 04/10/2017 Tobacco use disorder [...] 03/23/2022 06/29/2023 Shortness of breath 03/21/2022 06/29/20 23 Acute respiratory failure with hypoxia 11/08/2021 06/29/2023 [...] 05/13/2014 07/13/2020 Panic attack 05/13/2014 07/13/2020 Encounters Date Type Department Care Team Description 08/04/2025 10:15 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 Visit [facility] - Family Medicine [address] [place] [phone] Katia Grubbs PA-C Thyroid nodule-per pt, per outside hospital ; Spondylosis of lumbosacral region without myelopathy or radiculopathy; Weakness-functional neurological disease, per neuro at [facility].-was sent to PT/OT/speech therapy and a psychiatrist; Mild intermittent reactive airway disease without complication (HCC); Bipolar 2 disorder (HCC) 08/04/[address] [phone] Katia Grubbs PA-C General 08/04/[address] [phone] Katia Grubbs PA-C Refill Request 07/18/[address] [phone] Katia Grubbs PA-C Refill Request 07/01/[address] [phone] Katia Grubbs PA-C Refill Request 06/29/[address] [phone] Katia Grubbs PA-C Refill Request 06/04/[address] [phone] Katia Grubbs PA-C Refill Request from Last 3 Months Immunizations Immunization Administration Dates Next Due TDAP (7yrs+) 05/15/2024 Family History Medical History Relation Name Comments Cancer Father Cancer Mother Relation Name Status Comments Father Mother Social History Tobacco Use Types Packs/Day Years Used Date Smoking Tobacco: Former Cigarettes 0.3 15.6 0 03/23/2007 - 03/23/2022 Smokeless Tobacco: Never [...] Unable or Declines to Respond No 03/03/2025 AUDIT-C Answer Date Recorded Q1: How [...] Date Recorded Patient Health Questionnaire-2 Score 4 08/04/2025 [facility] - Occupational Stress [...] any time in the past 12 m [facility], were you homeless or living in a jail (including now)? 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 Gender Identity Not on file Sexual Orientation [...] Additional history exists LIPID TESTING 02/20/2030 02/20/2025, 04/2023, 09/13/2021, Additional history exists ZOSTER VACCINE [...] last dose Medical Devices Explanted Type Area Bakery Chef Device Identifier Shelf Expiration Date Model / Serial / Lot Stent Biliary 10fr 7cm Ddnl Bnd Temp Rap Implanted:Qty: 1 on 09/02/2019 by Oswaldo Malone MD at [facility] Explanted:Qty: 1 on 11/04/2019 by Oswaldo Malone MD at [facility] N/A: Bile Duct [employer] 06/02/2021 [id number] / / [id number] Stent Biliary 10mm 8.5fr 60mm 194cm .035 Implanted:Qty: 1 on 11/04/2019 by Oswaldo Malone MD at [facility] Explanted:Qty: 1 on 02/12/2020 by Oswaldo Malone MD at [facility] [employer] 06/13/2028 [id number] / / [id number] Stent Biliary 10mm 8.5fr 60mm 194cm .035 Implanted:Qty: 1 on 02/12/2020 by Oswaldo Malone MD at [facility] Explanted:Qty: 1 on 08/17/2020 by Oswaldo Malone MD at [facility] [employer] 09/26/2021 [id number] / / [id number] Stent Biliary 10mm 8.5fr 60mm 194cm .035 Implanted:Qty: 1 on 08/17/2020 by Oswaldo Malone MD at [facility] Explanted:Qty: 1 on 02/25/2021 by Malik Viveros MD at [facility] [employer] [id number] / / Procedures Procedure Name Priority Date/Time Associated Diagnosis Comments COMPREHENSIVE METABOLIC PANEL Routine 02/28/2025 1:55 PM CDT Pyelonephritis HEPATITIS C RNA QUANT REFLX GENOTYPE Routine 02/28/2025 1:55 PM CDT Chronic hepatitis C without hepatic coma (HCC) LIPID PROFILE AM Draw 02/20/2025 4:46 AM CDT HIV-1 HIV-2 ANTIBODY + HIV P24 AG PANEL AM Draw 03/25/2022 4:32 AM CDT from Last 3 Months or Most Recently Relevant to Health Maintenance Results * HEPATITIS C RNA QUANT REFLX GENOTYPE (02/28/2025 1:55 PM CDT) HCV Quant by NAAT (IU/mL) Not Detected IU/mL 03/03/2025 4:19 PM CDT [facility] ([facility]) HCV Quant by NAAT (log IU/mL) Not Detected log IU/mL 03/03/2025 4:19 PM CDT [facility] ([facility]) Comment: Hepatitis C Virus (HCV) by Quantitative NAAT result was less than 4,000 IU/mL (3.6 log IU/mL); therefore no further testing added. HCV Quant by NAAT Interp Not Detected Not Detected 03/03/2025 4:19 PM CDT [facility] ([facility]) Comment: INTERPRETIVE INFORMATION: HCV by Quantitative NAAT [...] and cellular tissue-based products (HCT/P). Performed By: [employer] [address] [place] [address] Acid Recovery Operator: Keyshawn Robles MD, PhD CLIA Number: [id number] Blood BLOOD SPECIMEN / Unknown Venipuncture / Unknown 02/28/2025 1:55 PM CDT 02/28/2025 1:55 PM CDT Katia Grubbs PA-C LAB - CHEMISTRY ORDERABLES Fin al Result [facility] [employer] ([facility]) [address] [place] [address] * (ABNORMAL) COMPREHENSIVE METABOLIC PANEL (02/28/2025 1:55 PM CDT) [facility] Glucose 97 70 - 125 mg/dL 02/28/2025 4:55 PM CDT [facility] Sodium 136 136 - 145 mmol/L 02/28/2025 4:55 PM CDT [facility] Potassium 3.4 3.4 - 5.1 mmol/L 02/28/2025 4:55 PM CDT [facility] Chloride 103 98 - 107 mmol/L 02/28/2025 4:55 PM CDT [facility] CO2 25 22 - 29 mmol/L 02/28/2025 4:55 PM CDT [facility] Calcium 9.48 8.4 - 10.2 mg/dL 02/28/2025 4:55 PM T [facility] Anion Gap 8 6 - 16 mmol/L 02/28/2025 4:55 PM CDT [facility] BUN 8.9(L) 9.8 - 20.1 mg/dL 02/28/2025 4:55 PM T [facility] Creatinine 0.71 0.57 - 1.11 mg/dL 02/28/2025 4:55 PM CDT [facility] Alkaline Phosphatase 119 40 - 150 U/L 02/28/2025 4:55 PM T [facility] ALT 19 7 - 30 U/L 02/28/2025 4:55 PM T [facility] AST 25 5 - 34 U/L 02/28/2025 4:55 PM T [facility] Protein Total 8.5(H) 6.4 - 8.3 gm/dL 02/28/2025 4:55 PM T [facility] Albumin 4.1 3.1 - 4.5 gm/dL 02/28/2025 4:55 PM T [facility] Globulin Total 4.4(H) 2.6 - 4.0 gm/dL 02/28/2025 4:55 PM T [facility] Albumin/Globulin Ratio 0.9 0.9 - 1.6 02/28/2025 4:55 PM T [facility] Bilirubin Total 0.3 0.2 - 1.2 mg/dL 02/28/2025 4:55 PM T [facility] eGFR >90 >90 mL/min/1.7 3m2 02/28/2025 4:55 PM T [facility] Comment:The GFR result was c alculated using the updated CKD-EPI Creatinine Equation (2020). Blood BLOOD SPECIMEN / Unknown Venipuncture / Unknown 02/28/2025 1:55 PM CDT 02/28/2025 1:55 PM CDT us Katia Grubbs PA-C LAB - CHEMISTRY ORDERABLES Fin al Result [facility] [address] [place], [place] [id number] [place] [address] * (ABNORMAL) LIPID PROFILE (02/20/2025 4:46 AM CDT) Cholesterol 116 <200 mg/dL 02/20/2025 5:22 AM T [facility] Triglycerides 188(H) <150 mg/dL 02/20/2025 5:22 AM T [facility] HDL Cholesterol 11(L) >40 mg/dL 5:22 AM T [facility] Chol HDL Ratio 10.5(H) 1.0 - 6.0 02/20/2025 5:22 AM T [facility] LDL Calculated 67 65 - 130 mg/dL 02/20/2025 5:22 AM T [facility] VLDL Calculated 38(H) <=30 mg/dL 5:22 AM T [facility] Blood BLOOD SPECIMEN / Unknown Lab Venipuncture / Unknown 02/20/2025 4:46 AM CDT 02/20/2025 4:59 AM CDT [facility] - 02/20/2025 5:22 AM CDT Lipid [...] CHEMISTRY ORDERABLES Final Result Performing Organization Address [facility] Co de Phone Number [facility] [address] * HIV-1 HIV-2 ANTIBODY + HIV P24 AG PANEL (03/25/2022 4:32 AM CDT) [facility] HIV1/2 Ab + P24 Ag NON-REACTI VE/NEGATIV E NON-REACTI VE/NEGATIV E 03/25/2022 5:46 AM CDT [facility] Blood BLOOD SPECIMEN / Unknown Lab Venipuncture / Unknown 03/25/2022 4:32 AM CDT 03/25/2022 5:07 AM CDT Kam Amato III, MD LAB - CHEMISTRY ORDERABLES Final Result Performing Organization Address [facility] de Phone Number [facility] [address] from Last 3 Months or Most Recently Relevant to Health Maintenance Additional Health Concerns Infection Onset Date Last Indicated ESBL GNR Comment:Urine 02/18/25; 02/18/2025 02/18/2025 Insurance MEDICAID AETNA [facility] [place] [facility] [place] [facility] [place] Advance Directives Documents on File Type Date Recorded Patient Outer Diameter Technician Expl anation Adv Directive/Living Will/POA 02/19/2025 [...] 8:16 PM 06/03/2023 2:56 PM Care Teams Director Diversity Relationship Specialty Start Date End Date Katia Grubbs PA-C [address] [place] [phone] PCP - General Physician Gymnastic Coach 10/04/19 Iraida Carrillo APRN-PORT DRIER [address] [address] Nurse Practitioner Nurse Practitioner 09/19/24
[2025-08-21] MEDS: oxyCODONE HCL (*CRX) 2.5 MG TAB IR PO (13:48)
[2025-08-21 14:10] LABS: BEDSIDEPREGUCG Negative (Negative)
[2025-08-21 14:10] LABS: Add Urine Microscopic? NO; Appearance Urine Clear (Clear); Glucose Urine UA Negative (Negative); Leukocyte Esterase Ur Negative LEU/UL (Negative); Nitrate Urine Negative (Negative); Specific Grav Ur 1.005 (1.001-1.035)
--- OUTSIDE RECORDS SUMMARY | 2025-08-21 14:37 | XMS_ITS | Data Portability ---
Author Organization [employer] , [facility] Address [address] [place] [address] Assessment No assessment recorded. Plan of Treatment Reminders Order Date Submit Date Provider Last Modified By Organization Details Last Modified Time Details Appointments None recorded. Lab HPV E6+E7 mRNA, qualitativ e PCR, cervix 2024 025 [facility] Juan [place], [address] [place], [address], 5 09:47:18 pap, LB - last pap 2018, hx abnormal pap, cervix, tubal ligation 2024 025 [facility], [address] [facility], [place], [address], 5 12:46:44 Referral None recorded. Procedures None recorded. Surgeries None recorded. Imaging MAMMO, screening, digital, bilateral 2024 025 [facility] ing Scheduling, [address] [place], [address], 5 16:20:30 Medication Orders None recorded. Patient TargetsNo targets recorded. Patient Instructions Encounter Date Encounter Id Patient Instructions Last Modified By Organization Details Last Modified Time 02/04/2025 [id number] Patient Health Questionnaire-9* Not available 02/11/2025 10:12:18 body mass index: care instructions tynima Not available 02/04/2025 15:31:39 mammogram: about this test tynima Not available 02/04/2025 15:31:39 Reason for Referral None Reported. Results Created Date Observation Date Name Description Value Unit Range Abnormal Flag Note LastModifiedBy Organization Detail LastModifiedTime 02/05/20 25 02/07/2025 HPV GENOT YPE HPV 16 Negati ve negati ve normal Not Available [address], [address], 02/08/2025 09:47:18 02/05/20 25 02/07/2025 HPV GENOT YPE HPV 18/45 Negati ve negati ve normal Assay can diffe renti ate HPV 16 from HPV 18 and/o r HPV 45. But canno t diffe renti ate betwe en 18 and 45. Not Available [address], [address], 02/08/2025 09:47:18 02/05/20 25 02/06/2025 HPV HIGH [...] l cervi jacqueline cytol ogy. Not Available [address], [address], 02/08/2025 09:47:19 02/05/2002/10/2025 THINP REP TIS PAP clinical information: normal None given Not Available [facility] [address] [place], [address], 02/10/2025 12:46:44 02/05/20 25 02/10/2025 THINP REP TIS PAP LMP: normal 01/23 Not Available [facility] [address] [place], [address], 02/10/2025 12:46:44 02/05/20 25 02/10/2025 THINP REP TIS PAP prev. Pap: normal NONE GIVEN Not Available [facility] [address] [address] [place], [address], 02/10/2025 12:46:44 02/05/2002/10/2025 THINP REP TIS PAP prev. BX: normal NONE GIVEN Not Available [place] [address] [address] [place], [address], 02/10/2025 12:46:44 02/05/20 25 02/10/2025 THINP REP TIS PAP source: normal Cervi x Not Available [address] [address] [place], [address], 02/10/2025 12:46:44 02/05/2002/10/2025 THINP REP TIS PAP statement of adequacy: normal Satis facto ry for evalu ation . Endoc ervic al/tr ansfo rmati on zone compo nent absen t. Not Available [address] [address] [place], [address], 02/10/2025 12:46:44 02/05/20 25 02/10/2025 THINP REP TIS PAP interpretati on/result: normal Cytol ogy Resul ts: Negat adair for intra epith elial lesio n or robel max . Not Available [address] [address] [place], [address], 02/10/2025 12:46:44 02/05/2002/10/2025 THINP REP TIS PAP comment: normal This Pap test has been evalu ated with compu ter roxann hayden techn ology . Not Available [address] [place], [address], 02/10/2025 12:46:44 02/05/20 25 02/10/2025 THINP REP TIS PAP cytotechnolo gist: normal ELL, CT( CP) CT Scree rafy Locat ion: [facility] [address] [place] [address] Not Available [address] [address] [place], [address], 02/10/2025 12:46:44 02/05/20 25 02/10/2025 THINP REP [...] clini jacqueline infor matio n. Not Available [place] [address] [id number] [place], [address], 02/10/2025 12:46:44 Result Notes None recorded. Problems Name Problem SNOMED Code Status Onset Date Resolution Date Notes Provider Name and Address Organization Details Recorded Time Irregula r intermen strual bleeding 99502710 Completed 201208/21/2013 Metrorrha raghu; Location: None Progress: Stable Added By: Mila Campo Add to Current Problems: NO ProblemSt atus: Resolve Not Available [facility] 2 21:12:22 Follicul ar cyst of ovary 2907852 Active 2012 Ovarian cyst; Progress: Stable Added By: Kar Barrera Add to Current Problems: YES ProblemSt atus: Current Not Available [facility] 2 21:12:22 Finding of pattern of menstrua l cycle Active 2018 Other specified irregular menstruat ion; Progress: Stable Added By: Alondra Carlton Add to Current Problems: YES ProblemSt atus: Current Not Available [facility] 2 21:12:42 Problem Notes None recorded. Procedures Surgical History Date Name Laterality Status Provider Name and Address Organization Details Recorded Time 5 Date of Last Pap Smear completed Keila Chan [facility] 02/21/2025 17:25:59 0 Most Recent Mammogram completed Lela Moore [employer] [facility] IV 02/04/2025 14:47:52 Colonoscopy completed Lela Moore [facility] A [facility] IV 02/04/2025 14:37:47 Gall bladder completed Lela Moore [place] [facility] IV 02/04/2025 14:37:47 C Section completed Lela Moore [place] - [facility] ANTIA [facility] IV 02/04/2025 14:37:47 ligation of fallopian tube completed Lelacherelle Moore [place] [employer] [facility] 02/04/2025 14:46:56 Imaging Results None recorded. Procedure Notes None recorded. Medical Equipment None Reported. Allergies Allergen ID Allergen Name Allergen Category Reaction Reaction Severity Criticality Documentation Date Start Date Code Code System Note Provider Name and Address Organization Details Recorded Time 131602 ibuprofen medicatio n Not available Not available Not available 06/25/20212012 5640 RxNorm Sever ity: Moder ate; Not Available [facility] 01:15:07 035056 tramadol medicatio n rash moderate Not available 02/04/2025 55064 RxNorm Lela Moore [facility] 14:42:48 Medications Name Sig Start Date Stop [...] completed Trazodon e HCl 100mg Tablet RxNorm: 971160 Allow Substitu tion: True Refill Denied: No [...] completed Trazodon e HCl 100mg Tablet RxNorm: 941883 Allow Substitu tion: True Refill Denied: No [...] bid 10/17 completed Zantac 150mg Tablet RxNorm: 765192 Allow Substitu tion: True Refill Denied: No Refill DateOccu rred: 11/20/19 13 Not Available Not Available Not Available naproxen 02/04 completed Naproxen RxNorm: 17881 Allow Substitu tion: True Refill Denied: No Refill DateOccu rred: 10/17/19 19 Not Available Not Available Not Available Xanax 1 p.o. tid 02/04 completed Xanax 0.5mg Tablet RxNorm: 471386 Allow Substitu tion: True Refill Denied: No [...] food. 2018 active Latuda 60mg Tablet RxNorm: 3240201 Allow Substitu tion: True Refill Denied: No Refill DateOccu rred: 10/17/19 19 Not Available Not Available Not Available [employer] [facility] with Large Mask USE 1 DEVICE [...] XL 120mg Capsules , Extended Release RxNorm: 911046 Allow Substitu tion: True Refill Denied: No Refill DateOccu rred: 10/17/19 19 Not Available Not Available Not Available Vitals Date Recorded Body height Body mass index (BMI) Body weight Systolic And Diastolic Provider Name and Address Organization Details Last Updated DateTime 02/04/2025 154.94 cm 27.5 kg/m2 85536.33 g 124/78 mm[Hg] Lela Oscar [facility] 02/04/2025 14:56:01 Social History Question Answer Notes LastModified by [employer]) Details LastModified Time Tobacco Smoking Status Current Every Day Smoker Lela Kowalskisneha chaudhari, [facility] IV 02/04/2025 14:37:42 If You Are , [...] Or The Highest Degree You Have Received? [id number] Information not available 02/04/2025 How Many Children [...] Functional Status Question Answer Note LastModified by [employer]) Details LastModified Time Do you use any [...] available 2024 14:37:21 Medical History Condition Response Anxiety Disorder Y Eating Disorder Y Bipolar Disorder Y Arthritis Y Panic Attacks Y Hepatitis Y Depression Y Asthma Y Chicken Pox Y Seasonal allergies Y Gynecological History Statement/Question Response Flow Heavy [...] ICD10 Code Diagnosis IMO Codes Diagnosis Note [id number] FLORENTIN Raymundo [facility] [address] [place] [address] 02/04/2025 14:35:36 02/04/2025 16:08:20 Gynecologic examination 30601321 Z01.419 Mammogram Order given today COUNSELING was [...] should contact healthcare provider immediatel y. and [employer] Specific: Annual [employer] Developer screening: , monthly self breast exam, calcium supplement ation, yearly mammograph y, Multivitam in daily FOLLOW-UP: in one year. Screening for malignant neoplasm of cervix 657844268 Z12.4 Screening for malignant neoplasm of breast 898153586 Z12.31 Depression screening 171 301374 Z13.31 refer to intake screening Health Concerns [...] 08/04/2020 (MEDICAID REPLACEMENT - HMO) Ana Malone [id number] Ana Malone Notes Date Note Type Note [...] 38, andneeds to schedule mammogram. FLORENTIN Raymundo [address] [facility], [place], [address], [facility] 02/04/2025 22:59:42 OBGyn Episode No OBEpisode recorded.
--- OUTSIDE RECORDS SUMMARY | 2025-08-21 14:37 | XMS_ITS | Clinical Summary ---
Author Organization [facility] [employer] Address [address] [facility] [place] [address] Care Team Providers Care Dike Supervisor Name Role Phone Katia Grubbs PA-C Primary Care Provider Iraida Carrillo APRN-PAYROLL CONSULTANT Unavailable [phone] Source Comments [facility] [employer],non-owned Affiliates and Associated Physician Practices is amultiple site organization consisting of ambulatory clinics and hospital sitesin [place], [place], [place] and [place]. This disclosure is being madepursuant to the Care Everywhere program and may not contain all information available regarding this patient. Last updated 18.[facility] [employer] Allergies Active Allergy Reactions Criticality Noted Date [...] vitamin D, ergocalciferol , (Drisdol) 1.25 MG (29911 UT) capsule TAKE 1 CAPSULE BY MOUTH [...] Department Care Team Description 08/04/2025 10:15 AM CAFETERIA COOK Video Visit [facility] - Family Medicine [address] [place] [phone] Katia Grubbs PA-C Thyroid nodule-per pt, per outside hospital ; Spondylosis of lumbosacral region without myelopathy or radiculopathy; Weakness-functional neurological disease, per neuro at [facility].-was sent to PT/OT/speech therapy and a psychiatrist; Mild intermittent reactive airway disease without complication (HCC); Bipolar 2 disorder (HCC) 08/04/[address] [phone] Katia Grubbs PA-C General 08/04/[address] [phone] Katia Grubbs PA-C Refill Request 07/18/[address] [phone] Katia Grubbs PA-C Refill Request 07/01/[address] [phone] Katia Grubbs PA-C Refill Request 06/29/[address] [phone] Katia Grubbs PA-C Refill Request 06/04/[address] [phone] Katia Grubbs PA-C Refill Request from Last [...] Recorded Patient Health Questionnaire-2 Score 4 08/04/2025 [facility] - Occupational [...] any time in the past 12 m [facility], were you homeless or living in a intermediate (including now)? No 02/19/2025 Comments No Sex and Gender Information Value Date Recorded Sex Assigned at Not on file Legal Sex Female 6:23 AM CAFETERIA COOK Gender Identity Not on file Sexual Orientation [...] last dose Medical Devices Explanted Type Area Sample Wrapper Device Identifier Shelf Expiration Date Model / Serial / Lot Stent Biliary 10fr 7cm Ddnl Bnd Temp Rap Implanted:Qty: 1 on 09/02/2019 by Oswaldo Malone MD at [facility] Explanted:Qty: 1 on 11/04/2019 by Oswaldo Malone MD at [facility] N/A: Bile Duct [employer] 06/02/2021 [id number] / / [id number] Stent Biliary 10mm 8.5fr 60mm 194cm .035 Implanted:Qty: 1 on 11/04/2019 by Oswaldo Malone MD at [facility] Explanted:Qty: 1 on 02/12/2020 by Oswaldo Malone MD at [facility] [employer] 06/13/2028 [id number] / / [id number] Stent Biliary 10mm 8.5fr 60mm 194cm .035 Implanted:Qty: 1 on 02/12/2020 by Oswaldo Malone MD at [facility] Explanted:Qty: 1 on 08/17/2020 by Oswaldo Malone MD at [facility] [employer] 09/26/2021 [id number] / / [id number] Stent Biliary 10mm 8.5fr 60mm 194cm .035 Implanted:Qty: 1 on 08/17/2020 by Oswaldo Malone MD at [facility] Explanted:Qty: 1 on 02/25/2021 by Malik Viveros MD at [facility] [employer] [id number] / / Procedures Procedure Name Priority Date/Time [...] Not Detected IU/mL 03/03/2025 4:19 PM CDT [facility] ([facility]) HCV Quant by NAAT (log IU/mL) Not Detected log IU/mL 03/03/2025 4:19 PM CDT [facility] ([facility]) Comment: Hepatitis C Virus (HCV) by Quantitative NAAT result was less than 4,000 IU/mL (3.6 log IU/mL); therefore no further testing added. HCV Quant by NAAT Interp Not Detected Not Detected 03/03/2025 4:19 PM CDT [facility] ([facility]) Comment: INTERPRETIVE INFORMATION: HCV by Quantitative [...] and cellular tissue-based products (HCT/P). Performed By: [facility] [address] [place] [address] Home Health Cna: Keyshawn Robles MD, PhD CLIA Number: [id number] Blood BLOOD SPECIMEN / Unknown Venipuncture / Unknown 02/28/2025 1:55 PM CDT 02/28/2025 1:55 PM CDT Katia Grubbs PA-C LAB - CHEMISTRY ORDERABLES Fin al Result [facility] [employer] ([facility]) [address] [place] [address] * (ABNORMAL) COMPREHENSIVE METABOLIC PANEL (02/28/2025 1:55 PM CDT) [facility] Glucose 97 70 - 125 mg/dL 02/28/2025 4:55 PM CDT [facility] Sodium 136 136 - 145 mmol/L 02/28/2025 4:55 PM CDT [facility] Potassium 3.4 3.4 - 5.1 mmol/L 02/28/2025 4:55 PM CDT [facility] Chloride 103 98 - 107 mmol/L 02/28/2025 4:55 PM CDT [facility] CO2 25 22 - 29 mmol/L 02/28/2025 4:55 PM CDT [facility] Calcium 9.48 8.4 - 10.2 mg/dL 02/28/2025 4:55 PM T [facility] Anion Gap 8 6 - 16 mmol/L 02/28/2025 4:55 PM CDT [facility] BUN 8.9(L) 9.8 - 20.1 mg/dL 02/28/2025 4:55 PM T [facility] Creatinine 0.71 0.57 - 1.11 mg/dL 02/28/2025 4:55 PM CDT [facility] Alkaline Phosphatase 119 40 - 150 U/L 02/28/2025 4:55 PM T [facility] ALT 19 7 - 30 U/L 02/28/2025 4:55 PM T [facility] AST 25 5 - 34 U/L 02/28/2025 4:55 PM T [facility] Protein Total 8.5(H) 6.4 - 8.3 gm/dL 02/28/2025 4:55 PM T [facility] Albumin 4.1 3.1 - 4.5 gm/dL 02/28/2025 4:55 PM T [facility] Globulin Total 4.4(H) 2.6 - 4.0 gm/dL 02/28/2025 4:55 PM T [facility] Albumin/Globulin Ratio 0.9 0.9 - 1.6 02/28/2025 4:55 PM T [facility] Bilirubin Total 0.3 0.2 - 1.2 mg/dL 02/28/2025 4:55 PM T [facility] eGFR >90 >90 mL/min/1.7 3m2 02/28/2025 4:55 PM T [facility] Comment:The GFR result was c alculated using the updated CKD-EPI Creatinine Equation (2020). Blood BLOOD SPECIMEN / Unknown Venipuncture / Unknown 02/28/2025 1:55 PM CDT 02/28/2025 1:55 PM CDT us Katia Grubbs PA-C LAB - CHEMISTRY ORDERABLES Fin al Result [facility] [address] [place], [place] [id number] [place] [address] * (ABNORMAL) LIPID PROFILE (02/20/2025 4:46 AM CDT) Cholesterol 116 <200 mg/dL 02/20/2025 5:22 AM T [facility] Triglycerides 188(H) <150 mg/dL 02/20/2025 5:22 AM T [facility] HDL Cholesterol 11(L) >40 mg/dL 5:22 AM T [facility] Chol HDL Ratio 10.5(H) 1.0 - 6.0 02/20/2025 5:22 AM T [facility] LDL Calculated 67 65 - 130 mg/dL 02/20/2025 5:22 AM T [facility] VLDL Calculated 38(H) <=30 mg/dL 5:22 AM T [facility] Blood BLOOD SPECIMEN / Unknown Lab Venipuncture / Unknown 02/20/2025 4:46 AM CDT 02/20/2025 4:59 AM CDT [facility] - 02/20/2025 5:22 AM CDT Lipid [...] CHEMISTRY ORDERABLES Final Result Performing Organization Address City/[facility] Co de Phone Number [facility] [address] * HIV-1 HIV-2 ANTIBODY + HIV P24 AG PANEL (03/25/2022 4:32 AM CDT) [facility] HIV1/2 Ab + P24 Ag NON-REACTI VE/NEGATIV E NON-REACTI VE/NEGATIV E 03/25/2022 5:46 AM CDT [facility] Blood BLOOD SPECIMEN / Unknown Lab Venipuncture / Unknown 03/25/2022 4:32 AM CDT 03/25/2022 5:07 AM CDT Kam Amato III, MD LAB - CHEMISTRY ORDERABLES Final Result Performing Organization Address [facility] de Phone Number [facility] [address] from Last 3 Months or Most Recently Relevant to Health Maintenance Additional Health Concerns Infection Onset Date Last Indicated ESBL GNR Comment:Urine 02/18/25; 02/18/2025 02/18/2025 Insurance MEDICAID AETNA [facility] [place] BETTER [facility] [place] [facility] [place] Advance Directives Documents on File Type Date Recorded Patient Safety Net Maker Expl anation Adv Directive/Living Will/POA 02/19/2025 Adv [...] 8:16 PM 06/03/2023 2:56 PM Care Teams Dike Supervisor Relationship Specialty Start Date End Date Katia Grubbs PA-C [address] [place] [id number] PCP - General Physician Electromedical Equipment Technician 10/04/19 Iraida Carrillo APRN-PAYROLL CONSULTANT [address] [phone] Nurse Practitioner Nurse Practitioner 09/19/24
[2025-08-21 15:23] VITALS: BP 130/89; PULSE 73; RESP 18; TEMP 36.8; O2SAT 100
== END 2025-08-21 15:37 | disposition home or self-care (01) ==
PROVIDERS: Physician Assistant; Emergency Provider Student in an Organized Health Care Education/Training Program; PCP Internal Medicine
DX: N76.4 Abscess of vulva (principal); F43.10 Post-traumatic stress disorder, unspecified; F31.9 Bipolar disorder, unspecified; Z87.891 Personal history of nicotine dependence
CPT/HCPCS: 10060; 81003; 81025; 87070; 87075; 99283; A9270